=== PATIENT | female | born 1965 | race Caucasian/White ===

== ENCOUNTER 2020-02-24 11:23 | Outpatient (CLI) | payer OTHER, SELFPAY ==
--- NOTE | ~2020-02-24 | MM_ITS ---
EXAMINATION: MM screening jose BI w michelle HISTORY: Screening TECHNIQUE: Craniocaudal and mediolateral oblique 3-D tomosynthesis images were obtained and synthetic 2-D images were generated. CAD analysis was submitted and interpreted. COMPARISON: Comparison to multiple prior studies sequentially, with oldest reviewed study dated 10/07. BREAST PARENCHYMAL COMPOSITION: The breasts are heterogeneously dense, which may obscure small masses . FINDINGS: There is no evidence of suspicious mass, calcification, or architectural distortion to sugg est malignancy in either breast. There has been no suspicious interval change. IMPRESSION: 1. No mammographic evidence of malignancy. 2. Recommend routine screening mammography in one year. BI-RADS Category 1: Negative Reviewed, dictated and finalized at location A. L CLEANER
== END 2020-02-24 11:24 | disposition home or self-care (01) ==
LOC: ANHIMG 11:25
PROVIDERS: PCP Family Medicine; Visit Provider Obstetrics & Gynecology Gynecology
DX: Z12.31 Encounter for screening mammogram for malignant neoplasm of breast (principal)
CPT/HCPCS: 77063; 77067

== ENCOUNTER 2020-05-03 11:07 | Emergency (ER) | payer OTHER, SELFPAY ==
[2020-05-03] VITALS (7 sets, daily range): BP systolic 102–129; BP diastolic 56–79; PULSE 63–102; RESP 15–19; TEMP 36.3–36.8; O2SAT 99–100
--- NOTE | ~2020-05-03 | CT_ITS ---
. EXAMINATION: CT chest abdomen pelvis w con DATE: 05/03/2020 13:04 INDICATION: Abdominal bloating and bulging. TECHNIQUE: Computed tomography (CT) of the chest, abdomen, and pelvis was performed with 100 mL Omnip aque 350 intravenous contrast. Automated exposure control and iterative reconstruction technique were employed. The dose-length product was 299.94 mGy-cm. COMPARISON: None FINDINGS: CHEST CT: The lungs demonstrate minimal atelectasis. There is a 3 mm nodule in lingula, likely benign. No pleur al effusion. The heart size is normal. No pericardial effusion. There is mild thoracic spondylosis. ABDOMEN/PELVIS CT: The liver, gallbladder, spleen, pancreas, adrenal glands, and kidneys are normal. There are no dilate d loops of bowel. The appendix is normal. There is a 2.0 cm fibroid in the uterus. There are no patho logically enlarged lymph nodes. There is no free intraperitoneal fluid. There is mild lumbar spondylo sis. IMPRESSION: 1. Uterine fibroid. Reviewed, dictated and finalized at location A. OR USER EXPERIENCE ARCHITECT IMPRESSION: 1. Uterine fibroid.
--- NOTE | 2020-05-03 11:18 | ECG_ITS ---
Measurements Intervals [place] Rate: 99 P: 75 KS: 135 QRS: 63 QRSD: 86 T: 57 QT: 340 QTc: 437 Interpretive Statements SINUS RHYTHM ST ABNORMALITY IN ANTEROLAT/INF LEADS- CONSIDER ISCHEMIA BASELINE WANDER- I, II ABNORMAL ECG Electronically Signed On 05-03-2020 12:03:19 ORDNANCE OFFICER by Robert Iqbal D.O.
[2020-05-03 11:29] LABS: Basophils Absolute Auto 0.1 K/mm3 (0.0-0.1); Basophils Percent Auto 0.6 % (0.2-1.2); Eosinophils Percent Auto 0.1 % (0-4.4); Hematocrit 44.9 % (37.0-47.0); Hemoglobin 14.4 g/dL (12.0-15.0); Immature Granulocyte Absolute 0.02 K/mm3 (0.00-0.031); Immature Granulocyte Percent A 0.2 % (0-0.5); Lymphocytes Absolute Auto 1.47 K/mm3 (0.9-3.2); Lymphocytes Percent Auto 16.2 % (18.3-44.2); Mean Corpuscular HGB Conc 32.1 g/dl (32-36); Mean Corpuscular Hemoglobin 26.9 pg (26-34); Mean Corpuscular Volume 83.8 fl (80-100); Mean Platelet Volume 10.5 fl (7.4-10.4); Monocytes Absolute Auto 0.7 K/mm3 (0.1-0.6); Monocytes Percent Auto 7.2 % (2.6-8.5); Neutrophils Absolute Auto 6.9 K/mm3 (1.3-6.7); Neutrophils Percent Auto 75.7 % (45.5-73.1); Platelet Count Result 272 k/mm3 (150-375); Red Blood Count 5.36 M/mm3 (4.2-5.4); Red Cell Distribution Width 16.5 % (11.5-14.5); White Blood Count 9.1 K/mm3 (4.5-10.0)
[2020-05-03 11:46] LABS: Alanine Aminotransferase 17 U/L (4-35); Albumin Level 4.3 g/dL (3.5-5.1); Alkaline Phosphatase 54 U/L (38-126); Anion Gap 6 mmol/L (8-16); Aspartate Amino Transferase 33 U/L (14-36); Bilirubin,Total 0.7 mg/dL (0.2-1.3); Blood Urea Nitrogen 10 mg/dL (7-17); Calcium 9.1 mg/dL (8.4-10.2); Carbon Dioxide 34 mmol/L (22-30); Chloride 99 mmol/L (98-107); Estimated CRCL calculation 64 ml/min; Estimated Glomerular Filt Rate > 60; Glucose 97 mg/dL (65-105); Lipase 88 U/L (23-300); Potassium 3.6 mmol/L (3.4-5.0); Sodium 139 mmol/L (137-145)
[2020-05-03 12:24] LABS: Add Urine Microscopic? YES; Appearance Urine Clear (Clear); Bilirubin Urine Negative (Negative); Blood Urine Negative (Negative); Color Urine Colorless (Yellow); Glucose Urine UA Negative (Negative); Ketones Urine Trace mg/dL (Negative); Leukocyte Esterase Ur Negative LEU/UL (Negative); Nitrate Urine Negative (Negative); Protein Urine Negative (Negative); RBC Urine 0-2 /hpf (0-2); Specific Grav Ur 1.006 (1.001-1.035); Squamous Epithelial Cell Urine Few /hpf (Few); Urobilinogen Urine Negative mg/dL (<2.0); WBC Urine 0-3 /hpf
--- NOTE | 2020-05-03 12:26 | ED.ABDPAIN ---
HPI - Abdominal Pain General Chief Complaint: Abdominal Pain Stated Complaint: abd bloating Time Seen by Provider: 05/03/20 12:10 Source: patient Mode of arrival: ambulatory Limitations: no limitations History of Present Illness HPI narrative: Patient is a 54-year-old female complaining of upper abdominal pain accompanied by bloating, nausea and diarrhea, I have acid reflux that started yesterday. Denies any chest pain, shortness of breath, vomiting, urinary symptoms, fever or chills. Related Data Home Medications Medication Instructions Recorded Confirmed Iron 325 mg PO DAILY 03/12/19 ergocalciferol (vitamin D2) 50,000 unit PO WEEKLY 03/12/19 03/12/19 Allergies Allergy/AdvReac Type Severity Reaction Status Date / Time Sulfa (Sulfonamide Allergy Severe RASH Verified 05/03/20 12:36 Antibiotics) meperidine AdvReac Severe LOW BP Verified 05/03/20 12:36 RAGWEED Allergy Mild ITCHY, Uncoded 05/03/20 12:36 SNEEZY, CONGESTED Review of Systems Review of Systems: All systems reviewed & are unremarkable except as noted in HPI and below Constitutional: Constitutional: Denies body ache(s), Denies chills, Denies excessive sweating, Denies fatigue, Denies fever(s), Denies headache(s), Denies lethargy, Denies malaise, Denies weakness and Denies weight loss Eyes: Eyes: Denies blurry vision, Denies change in vision and Denies loss of vision ENT: Denies dizziness, Denies ear discharge, Denies headache(s), Denies lip swelling, Denies epistaxis, Denies nasal congestion, Denies neck pain, Denies throat swelling and Denies tongue swelling Cardiovascular: Cardiovascular: Denies chest pain, Denies chest pain at rest, Denies chest pain with activity, Denies diaphoresis, Denies rapid heart rate, Denies edema, Denies irregular heart rhythm, Denies lightheadedness, Denies palpitations, Denies dyspnea and Denies dyspnea on exertion Respiratory: Respiratory: Denies chest congestion, Denies cough, Denies hemoptysis, Denies dyspnea and Denies dyspnea on exertion Gastrointestinal: Gastrointestinal: Denies abdominal pain, Denies melena, Denies hematochezia, Denies vomiting and Denies hematemesis Musculoskeletal: Musculoskeletal: Denies abnormal gait, Denies deformity, Denies joint swelling, Denies limited range of motion, Denies neck pain and Denies numbness Neurologic: Denies Abnormal speech present, Denies abnormal gait, Denies confusion, Denies dizziness, Denies headache(s), Denies focal weakness, Denies loss of vision, Denies numbness, Denies Other visual disturbances, Denies Sensory deficit (Neuro) and Denies weakness Psychiatric: Psychiatric: Denies confusion, Denies depression, Denies auditory hallucinations, Denies homicidal ideation and Denies suicidal ideation Endocrine: Endocrine: Denies cold intolerance, Denies excessive sweating, Denies fatigue, Denies heat intolerance and Denies palpitations Hematologic/Lymphatic: Hematologic/Lymphatic: Denies easy bleeding and Denies easy bruising Allergic/Immunologic: Allergic/Immunologic: Denies lip swelling, Denies throat swelling and Denies tongue swelling Exam Const: General: cooperative, healthy appearing, comfortable, no acute distress, well developed, alert and awake; No confusion Orientation/consciousness: oriented to person, oriented to place, oriented to time, patient oriented x3 and No confusion Limitations: no limitations HENMT: Head: normal to inspection, normocephalic and atraumatic Ears: hearing grossly normal bilaterally, TM normal on the right and TM normal on the left General nose exam: Normal external nose present, Normal nares present and No nasal discharge present Face and sinus: normal facial exam Mouth: Yes Normal oral and palatal mucosa present, Yes lip normal, Yes tongue normal and Yes oropharynx normal Throat: posterior oropharynx normal, tonsils normal and uvula midline Eyes: General: appearance normal, both eyes and all related structures Pupils: Equal, r
[2020-05-03] MEDS: SODIUM CHLORIDE 0.9% IV 1,000 ML 999 ML IV CONT (12:54)
[2020-05-03] MEDS: ONDANSETRON INJ 4 MG/2 ML VIAL IV PUSH (12:55)
[2020-05-03 13:22] LABS: Troponin I < 0.012 ng/mL (0.000-0.034)
[2020-05-03] MEDS: BELLADONNA ALK/PHENOB ELIX 10 ML, MAG HYDROX/ALUMINUM HYD/SIMETH 30 ML, LIDOCAINE HCL 2... PO (15:45)
[2020-05-03] MEDS: FAMOTIDINE 20 MG TABLET 40 MG PO (15:45)
[2020-05-03 15:47] LABS: Troponin I < 0.012 ng/mL (0.000-0.034)
== END 2020-05-03 17:14 | disposition home or self-care (01) ==
LOC: ANHED 12:17
PROVIDERS: Emergency Medicine; Emergency Provider Emergency Medicine; PCP Family Medicine
DX: R10.13 Epigastric pain (principal); R07.89 Other chest pain; K21.9 Gastro-esophageal reflux disease without esophagitis; R94.31 Abnormal electrocardiogram [ECG] [EKG]
CPT/HCPCS: 36415; 71260; 74177; 80053; 81001; 81025; 83690; 84484; 85025; 93005; 96361; 96374; 99284; A9270; J2405; J7030; Q9967

== ENCOUNTER 2020-08-11 10:34 | Emergency (ER) | payer OTHER, SELFPAY ==
[2020-08-11 10:44] VITALS: BP 136/57; PULSE 82; RESP 16; TEMP 36.9; O2SAT 99
--- NOTE | 2020-08-11 11:02 | ED.URI ---
HPI - URI/Sore Throat General Chief Complaint: Upper Respiratory Infection Stated Complaint: Cough,Sore throat Time Seen by Provider: 08/11/20 11:00 Source: patient and RN notes reviewed Mode of arrival: ambulatory Limitations: no limitations History of Present Illness HPI Narrative: 54-year-old female presents with concern for cough, sinus congestion, drainage, sore throat. Reports 6-day history of symptoms. Denies any known sick contacts, fever, body aches, chills, sweats, headache, nausea, vomiting, diarrhea, loss of sense of taste or smell. Reports trying [id number] medications such as Sudafed, Mucinex with no relief. MD elicited complaint: cough Related Data Home Medications Medication Instructions Recorded Confirmed ergocalciferol (vitamin D2) 50,000 unit PO WEEKLY 03/12/19 08/11/20 Allergies Allergy/AdvReac Type Severity Reaction Status Date / Time Sulfa (Sulfonamide Allergy Severe RASH Verified 05/03/20 12:36 Antibiotics) meperidine AdvReac Severe LOW BP Verified 05/03/20 12:36 RAGWEED Allergy Mild ITCHY, Uncoded 05/03/20 12:36 SNEEZY, CONGESTED Review of Systems Review of Systems: Narrative: CONSTITUTIONAL: Denies malaise, chills, sweats, or fever. EYES: Denies visual changes, redness, or discharge. ENT: Reports rhinorrhea, congestion, sinus pain,sore throat. Denies otalgia CARDIOVASCULAR: Denies chest pain, palpitations, or edema. RESPIRATORY: Reports persistent cough. Denies dyspnea. GASTROINTESTINAL: Denies abdominal pain, nausea, vomiting, diarrhea SKIN: Denies rash or itching. MUSCULOSKELETAL: Denies myalgia. NEUROLOGIC: Denies headache. All systems reviewed & are unremarkable except as noted in HPI and below PMFSH Social History Social History Gender identity (if verbalized by the patient): Female Comments At time of signature, agree with nursing past medical, surgical, social and family history. There is no relevant family history pertinent to the presenting complaint Exam Narrative: Exam Narrative: GENERAL: Well-appearing, well-nourished, and in no acute distress. HEAD: Normocephalic EYES: PERRLA, conjunctivae clear ENT: Nares clear, turbinates erythematous, clear discharge. Mucous membranes moist. TM pearly darnell with dull light reflex bilaterally; no tragal tenderness. Oropharynx not erythematous without lesions. Tonsils not enlarged and without exudate, no drooling, no hoarseness, no trismus, uvula midline. NECK: Supple. No lymphadenopathy CHEST: Clear to auscultation, breath sounds equal. No wheezing, rhonchi, rales, or stridor. No respiratory distress, speaks in full sentences. Cough noted HEART: Regular rate and rhythm. No murmur heard. SKIN: Warm, dry, no rash. NEURO: Alert and oriented x3. PSYCH: Normal mood and affect Course Course Emergency Course: Patient is aware of diagnosis, understands and agrees to treatment plan. Anticipatory guidance given. Patient agrees to follow-up as directed and is aware of reasons to seek care at the emergency department. Portions of this record may have been created with voice recognition software Vital Signs Vital signs: Vital Signs Temperature 98.4 F 08/11/20 10:44 Pulse Rate 82 08/11/20 10:44 Respiratory Rate 16 08/11/20 10:44 Blood Pressure 136/57 L 08/11/20 10:44 Pulse Oximetry 99 08/11/20 10:44 Temperature 98.4 F 08/11/20 10:44 Pulse Rate 82 08/11/20 10:44 Respiratory Rate 16 08/11/20 10:44 Blood Pressure 136/57 L 08/11/20 10:44 Pulse Oximetry 99 08/11/20 10:44 Reviewed. MDM - URI/Sore Throat MDM Narrative Medical decision making narrative: Differential diagnosis considered: Islas virus, strep pharyngitis, allergic rhinitis, upper respiratory tract infection, sinusitis, rhinosinusitis, nasopharyngitis. viral pharyngitis, otitis media, otitis externa, pneumonia, bronchitis, viral cough syndrome, viral syndrome, and influenza. Exam findings show no acute concerns or changes; pat
== END 2020-08-11 11:17 | disposition home or self-care (01) ==
PROVIDERS: Emergency Provider Nurse Practitioner; PCP Family Medicine
DX: J32.9 Chronic sinusitis, unspecified (principal); J40 Bronchitis, not specified as acute or chronic
CPT/HCPCS: 87081; 87880; 99213; G0463

== ENCOUNTER 2022-03-09 09:15 | Emergency (ER) | payer MEDICARE, MEDICAID, SELFPAY ==
--- NOTE | ~2022-03-09 | XR_ITS ---
EXAMINATION: XR chest 2V DATE: 03/09/2022 10:11 INDICATION: Mid chest pain and discomfort TECHNIQUE: PA and lateral views of the chest were obtained. COMPARISON: Chest radiograph dated 03/17/2019 FINDINGS: The lungs remain clear with no focal airspace opacities, pulmonary edema, pleural effusion or pneumot horax. The cardiomediastinal silhouette is normal. Visualized bones and soft tissues are unremarkable . IMPRESSION: 1. No acute cardiopulmonary disease. Reviewed, dictated and finalized at location B. GER ETL
[2022-03-09 09:30] VITALS: BP 132/59; PULSE 70; RESP 18; TEMP 37; O2SAT 97
--- NOTE | 2022-03-09 09:32 | ECG_ITS ---
Measurements Intervals [place] Rate: 67 P: 26 OR: 99 QRS: 51 QRSD: 109 T: 60 QT: 374 QTc: 396 Interpretive Statements SINUS RHYTHM WITH SHORT OR INTERVAL BORDERLINE ECG COMPARED TO ECG 05/03/2020 11:22:25 ST ABNORMALITY IN ANTEROLAT/INF LEADS- CONSIDER ISCHEMIA RESOLVED Electronically Signed On 03-09-2022 9:56:43 MID LEVEL JAVA DEVELOPER by Robert Iqbal D.O.
--- NOTE | 2022-03-09 09:33 | ED.CHESTPAIN ---
HPI - Chest Pain General Chief Complaint: Chest Pain <IVELISSE Chavarria Last Filed: 03/09/22 10:42> Stated Complaint: chest tenderness <IVELISSE Chavarria Last Filed: 03/09/22 10:42> Time Seen by Provider: 03/09/22 09:24 <IVELISSE Chavarria Last Filed: 03/09/22 10:42> History of Present Illness HPI narrative: Patient is a 56-year-old female with a history of acid reflux here for evaluation of chest tenderness over the past 5 days. States that she was doing a Pilates class with front and side planks and since then she has felt sore in her anterior and lateral chest wall. She is attempted ibuprofen with good relief of her symptoms. She presents today due to longevity of her symptoms and location of her pain, wants to make sure that this is not a cardiac issue. She denies cardiac history, history of hypertension, hyperlipidemia, blood clots or smoking. No leg swelling, fevers or chills, cough or congestion, hemoptysis. <IVELISSE Chavarria Last Filed: 03/09/22 10:42> Related Data Home Medications: Home Medications Medication Instructions Recorded Confirmed ergocalciferol (vitamin D2) 1,250 50,000 unit PO WEEKLY 03/12/19 08/11/20 mcg (50,000 unit) capsule <IVELISSE Chavarria Last Filed: 03/09/22 10:42> Allergies/Adverse Reactions: Allergies Allergy/AdvReac Type Severity Reaction Status Date / Time Sulfa (Sulfonamide Allergy Severe RASH Verified 03/09/22 09:39 Antibiotics) meperidine AdvReac Severe LOW BP Verified 03/09/22 09:39 RAGWEED Allergy Mild ITCHY, Uncoded 03/09/22 09:39 SNEEZY, CONGESTED <IVELISSE Chavarria Last Filed: 03/09/22 10:42> Review of Systems Review of Systems: Gen.: Denies fevers or chills Eyes: Denies eye pain or visual change ENT: Denies congestion Respiratory: Denies shortness of breath or cough CV: Reports chest wall pain. GI: Denies abdominal pain nausea, emesis or diarrhea denies burning, urgency, frequency or hematuria Musculoskeletal: Denies back pain or muscle pain Neuro: Denies numbness, tingling, weakness or focal weakness Skin: Denies rash Except as documented, all other systems reviewed and negative <Mirella Yousif PA-C - Last Filed: 03/09/22 10:42> [facility] Social History Social History: Social History Gender identity (if verbalized by the patient): Female <Mirella Yousif PA-C - Last Filed: 03/09/22 10:42> Exam Narrative: APPEARANCE: Well appearing, no pain in distress, well-nourished. Head: Normocephalic and atraumatic. EYES: PERRLA/EOMI, conjunctivae clear NOSE: No nasal drainage EARS: External ear normal in appearance THROAT: Oropharynx is clear. Mucous membranes are moist. NECK: Supple. No adenopathy, no masses. RESPIRATORY: Airway patent, respirations nonlabored. Clear to auscultation bilaterally, no rales, rhonchi, wheezing. CARDIOVASCULAR: Tenderness to palpation over anterior chest wall and lateral chest wall along the bilateral lower ribs. Regular rate and rhythm without murmurs, rubs, or gallops. ABDOMINAL: Normoactive bowel sounds. Soft, nontender, nondistended. No rebound tenderness or guarding. MUSCULOSKELETAL: Extremities are warm and well-perfused. Moves all extremities well. No edema. NEURO: Normal speech. No focal neurologic deficits. SKIN: No rashes over thorax. Skin is warm and dry. PSYCHIATRIC: Normal affect/mood. <Mirella Yousif PA-C - Last Filed: 03/09/22 10:42> Course WELDER APPRENTICE ARC/PA Physician Supervision For this encounter, I have reviewed the PA documentation, treatment plan and medical decision making: And I have had ulwv-zu-[id number] time with the patient. On exam the patient is tender just to the left of the sternum and regions of ribs 6 through 8 pain increased with deep inspiration and Flye motion of the chest pain has been constant since doing planks a week ago heart is regular rate and rhythm wit
[2022-03-09 09:35] VITALS: O2SAT 97
[2022-03-09 09:52] VITALS: PULSE 71
[2022-03-09 10:10] LABS: Basophils Absolute Auto 0.1 K/mm3 (0.0-0.1); Basophils Percent Auto 0.9 % (0.2-1.2); Eosinophils Percent Auto 0.2 % (0-4.4); Hematocrit 44.4 % (37.0-47.0); Hemoglobin 14.2 g/dL (12.0-15.0); Immature Granulocyte Absolute 0.02 K/mm3 (0.00-0.031); Immature Granulocyte Percent A 0.3 % (0-0.5); Lymphocytes Absolute Auto 1.48 K/mm3 (0.9-3.2); Lymphocytes Percent Auto 25.2 % (18.3-44.2); Mean Corpuscular Hemoglobin 27.3 pg (26-34); Mean Corpuscular Volume 85.4 fl (80-100); Mean Platelet Volume 10.8 fl (7.4-10.4); Monocytes Absolute Auto 0.5 K/mm3 (0.1-0.6); Neutrophils Absolute Auto 3.8 K/mm3 (1.3-6.7); Neutrophils Percent Auto 65.4 % (45.5-73.1); Platelet Count Result 244 k/mm3 (150-375); Red Cell Distribution Width 13.2 % (11.5-14.5); White Blood Count 5.9 K/mm3 (4.5-10.0)
[2022-03-09 10:21] LABS: Alanine Aminotransferase 15 U/L (6-35); Albumin Level 4.6 g/dL (3.5-5.1); Alkaline Phosphatase 63 U/L (38-126); Anion Gap 12 mmol/L (8-16); Aspartate Amino Transferase 30 U/L (14-36); Bilirubin,Total 0.4 mg/dL (0.2-1.3); Blood Urea Nitrogen 14 mg/dL (7-17); Carbon Dioxide 27 mmol/L (22-30); Chloride 103 mmol/L (98-107); Estimated CRCL calculation 63 ml/min; Estimated Glomerular Filt Rate > 60; Glucose 102 mg/dL (65-110); Lipase 137 U/L (23-300); Potassium 4.3 mmol/L (3.4-5.0); Sodium 142 mmol/L (137-145)
[2022-03-09 10:31] LABS: Troponin I < 0.012 ng/mL (0.000-0.034)
[2022-03-09 11:02] VITALS: BP 119/43; PULSE 74; RESP 18; O2SAT 99
== END 2022-03-09 11:06 | disposition home or self-care (01) ==
PROVIDERS: Physician Assistant; Emergency Provider Emergency Medicine; PCP Family Medicine
DX: R07.89 Other chest pain (principal); R94.31 Abnormal electrocardiogram [ECG] [EKG]
CPT/HCPCS: 36415; 71046; 80053; 83690; 84484; 85025; 93005; 99284; J2785

== ENCOUNTER 2022-06-13 08:25 | Outpatient (CLI) | payer MEDICARE, MEDICAID, SELFPAY ==
--- NOTE | ~2022-06-13 | MM_ITS ---
EXAMINATION: MM screening jose BI w michelle HISTORY: Screening mammogram TECHNIQUE: Craniocaudal and mediolateral oblique 3-D tomosynthesis images were obtained and synthetic 2-D images were generated. CAD analysis was submitted and interpreted. COMPARISON: 02/24/2020, 02/09/2019, 02/01/2018 bilateral screening mammogram examinations BREAST PARENCHYMAL COMPOSITION: There are scattered areas of fibroglandular density. FINDINGS: There is no evidence of suspicious mass, calcification, or architectural distortion to sugg est malignancy in either breast. There has been no suspicious interval change. IMPRESSION: 1. No mammographic evidence of malignancy. 2. Recommend routine screening mammography in one year. BI-RADS Category 1: Negative Reviewed, dictated and finalized at location A. PROCESSING CONTROL CLERK
== END 2022-06-13 08:26 | disposition home or self-care (01) ==
PROVIDERS: PCP Family Medicine; Visit Provider Obstetrics & Gynecology Gynecology
DX: Z12.31 Encounter for screening mammogram for malignant neoplasm of breast (principal)
CPT/HCPCS: 77063; 77067

== ENCOUNTER 2022-11-13 13:48 | Emergency (ER) | payer MEDICARE, MEDICAID, SELFPAY ==
[2022-11-13 14:00] VITALS: BP 118/42; PULSE 70; RESP 14; TEMP 36.7; O2SAT 100
--- NOTE | 2022-11-13 14:23 | ED.EXTPRO ---
HPI - Extremity Problem General Chief complaint: Extremity Injury, Lower Stated complaint: Left Knee Pain Time Seen by Provider: 11/13/22 14:09 Source: patient and RN notes reviewed Mode of arrival: ambulatory Limitations: no limitations History of Present Illness HPI Narrative: Patient presents today complaining of left knee pain x1 week with tingling in the knee that started today. Pain increases with movement. Patient states she has been exercising more recently. She has been taking ibuprofen with little relief. Currently rates her pain 1/10 at rest. Denies loss of bowel or bladder control. Denies numbness or tingling in the genitalia. Related Data Home Medications Medication Instructions Recorded Confirmed ergocalciferol (vitamin D2) 1,250 50,000 unit PO WEEKLY 03/12/19 11/13/22 mcg (50,000 unit) capsule Allergies Allergy/AdvReac Type Severity Reaction Status Date / Time Sulfa (Sulfonamide Allergy Severe RASH Verified 11/13/22 14:03 Antibiotics) meperidine AdvReac Severe LOW BP Verified 11/13/22 14:03 RAGWEED Allergy Mild ITCHY, Uncoded 11/13/22 14:03 SNEEZY, CONGESTED Review of Systems Review of Systems: CONSTITUTIONAL: Denies body aches, fever, chills, or sweats. EYES: Denies visual changes, redness, or discharge. ENT: Denies rhinorrhea, congestion, sore throat, or otalgia. CARDIOVASCULAR: Denies chest pain, palpitations, or edema. RESPIRATORY: Denies cough or dyspnea. GASTROINTESTINAL: Denies abdominal pain, nausea, vomiting, or diarrhea. GENITOURINARY: Denies dysuria or hematuria. SKIN: Denies rash, itching, or wounds. MUSCULOSKELETAL: Denies back pain, or myalgia.+ left knee pain NEUROLOGIC: Denies headache, numbness, tingling, or weakness. PSYCH: Denies depression or anxiety. PMFSH Social History Social History Gender identity (if verbalized by the patient): Female Comments At time of signature, I have reviewed and agree with nursing past medical, surgical, social and family history unless otherwise noted. Please see nursing chart for further information. There is no relevant family history pertinent to the presenting complaint Exam Narrative: GENERAL: Well-appearing, well-nourished, and in no acute distress. HEAD: Normocephalic, atraumatic. EYES: EOMI. No redness or drainage. Conjunctivae normal. ENT: Mucous membranes pink and moist. NECK: Normal AROM. CHEST: No respiratory distress. MUSCULOSKELETAL: Mild left lower lumbar paraspinal muscle tenderness, point tenderness in the left SI joint. EXTREMITIES: Tenderness to the posterior medial left knee and left medial ankle. Distal sensation intact. Capillary refill normal. Pedal pulses normal. Dorsiflexion and plantar flexion equal and strong against resistance. Left knee: Nontender to the lateral joint line. No tenderness to the patella or patellar tendon. No abnormal movement of the patella. No edema, erythema, ecchymosis of the knee. No pain with flexion, extension, internal or external rotation. Negative Homans. No tenderness of the calf. No erythema or edema of the calf. No color change. SKIN: Warm, dry, no rash. Capillary refill normal. Normal skin turgor. NEURO: No focal deficits. Alert and oriented x3. Gait steady. PSYCH: Normal affect. No signs of depression or anxiety. Course Course Level of Care: Express Care Visit Vital Signs Vital signs: Vital Signs Temperature 98.1 F 11/13/22 14:00 Pulse Rate 70 11/13/22 14:00 Respiratory Rate 14 11/13/22 14:00 Blood Pressure 118/42 L 11/13/22 14:00 Pulse Oximetry 100 11/13/22 14:00 Oxygen Delivery Room Air 11/13/22 14:00 Temperature 98.1 F 11/13/22 14:00 Pulse Rate 70 11/13/22 14:00 Respiratory Rate 14 11/13/22 14:00 Blood Pressure 118/42 L 11/13/22 14:00 Pulse Oximetry 100 11/13/22 14:00 Oxygen Delivery Room Air 11/13/22 14:00 Arin
== END 2022-11-13 14:40 | disposition home or self-care (01) ==
PROVIDERS: Emergency Provider Nurse Practitioner; PCP Family Medicine
DX: M54.32 Sciatica, left side (principal); K21.9 Gastro-esophageal reflux disease without esophagitis; H26.9 Unspecified cataract
CPT/HCPCS: 99213; G0463

== ENCOUNTER 2022-12-05 11:05 | Outpatient (CLI) | payer MEDICARE, MEDICAID, SELFPAY ==
--- NOTE | ~2022-12-05 | XR_ITS ---
EXAMINATION: XR thoracic spine 3V DATE: 12/05/2022 11:27 INDICATION: Low back pain. TECHNIQUE: 3 views of thoracic spine were obtained. COMPARISON: Chest 2 views 03/09/2022 FINDINGS: Bone alignment is normal. Vertebral body heights are normal. There is mildly decreased disc height at multiple levels in mid thoracic spine with endplate osteophytes. IMPRESSION: 1. Mild thoracic spondylosis. Reviewed, dictated and finalized at location E.
--- NOTE | ~2022-12-05 | XR_ITS ---
EXAMINATION: XR lumbar spine 2-3V DATE: 12/05/2022 11:27 INDICATION: Low back pain. TECHNIQUE: 3 views of lumbar spine were obtained. COMPARISON: None. FINDINGS: Bone alignment is normal. Vertebral body heights and intervertebral disc heights are normal . There are endplate osteophytes at multiple levels. There is multilevel mild facet joint osteoarthri tis. IMPRESSION: 1. Mild lumbar spondylosis. Reviewed, dictated and finalized at location E. IMPRESSION: 1. Mild lumbar spondylosis.
== END 2022-12-05 11:06 | disposition home or self-care (01) ==
PROVIDERS: PCP Family Medicine
DX: M47.816 Spondylosis without myelopathy or radiculopathy, lumbar region (principal); M47.814 Spondylosis without myelopathy or radiculopathy, thoracic region
CPT/HCPCS: 72072; 72100

== ENCOUNTER 2023-02-17 15:15 | Outpatient (RCR) | payer MEDICARE, MEDICAID, SELFPAY ==
--- NOTE | 2023-01-22 15:28 | OPREHPOC ---
Outpatient Therapy Plan of Care This is a Multidisciplinary Plan of Care that may contain components documented by all disciplines (PT, OT, and ST.) PT Problem 1 PT Problem #1 Knowledge Deficit PT Goal 1 Goal 1* indep with HEP 2* demonstrate good position of trunk with exercises PT Problem 2 PT Problem #2 Pain PT Goal 1 Goal 1* pt report pain rating at worst of 4/10 2* pt report sitting for one hour without pain increase 3* pt report walking for 50 minutes without pain increase PT Problem 3 PT Problem #3 Impaired Strength PT Goal 1 Goal improve thoracic and lumbar strength for stability to spine and improve positionin* pt perform 20 reps of mat trunk strengthening exercises with good stability 2* pt perform 15 reps of sitting ball exercises with good stability
--- NOTE | 2023-01-22 15:28 | PTOPEVAL1 ---
Assessment and note entered by Pattie Friedman, PT Evaluation Information Assessment Status Evaluation Diagnosis low back pain Onset August 2022 Subjective Information gradual increase in pain 3-4 months ago; have been walking her dog that pulls on his leash; no trauma or injury to back; have stopped doing weight resistance exercises for arms few months ago due to pain in upper back; do yoga stretching 10-15/day and it helps; also have plantar fascitis bilateral that limits her walking-- hurts the next day if go too far; xrays of back- pt was told it was stenosis. Oswestry self assessment 8% limitation. 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 She reports gradual increase in pain, with walking and sitting decreased due to pain. Also recently more pain with walking her dog that pulls on the leash. With the evaluation: the motion that elicited low back pain was standing trunk extension and thoracic soreness with all 4 arch/sag; she has good flexibility of hips and LE's, with decreased thoracic mobility; strength of hips and legs is good; poor standing posture with rounding of trunk and shoulders. Skilled PT services are indicated for modalities to decrease pain and spasms over thoracic and lumbar spine, therapeutic exercises to increase trunk strength, thoracic mobility and stability to spine, with education for home exercises and posture correction. Plan of Care
--- NOTE | 2023-02-17 16:02 | OPREHPOC ---
Outpatient Therapy Plan of Care This is a Multidisciplinary Plan of Care that may contain components documented by all disciplines (PT, OT, and ST.) PT Problem 1 PT Problem #1 Knowledge Deficit PT Goal 1 Goal 1* indep with HEP 2* demonstrate good position of trunk with exercises Progress Met PT Problem 2 PT Problem #2 Pain PT Goal 1 Goal 1* pt report pain rating at worst of 4/10 2* pt report sitting for one hour without pain increase 3* pt report walking for 50 minutes without pain increase Progress Met PT Problem 3 PT Problem #3 Impaired Strength PT Goal 1 Goal improve thoracic and lumbar strength for stability to spine and improve positionin* pt perform 20 reps of mat trunk strengthening exercises with good stability 2* pt perform 15 reps of sitting ball exercises with good stability Progress Partially Met
--- NOTE | 2023-02-17 16:02 | PTOPPROGNS ---
Assessment and note entered by Sabrina Moses DPT Evaluation Information Assessment Status Progress Diagnosis low back pain Onset August 2022 Subjective Information Highest pain 4/10 recently and lowest pain 0/10. Pt reports her range of motion has improved and she has a lot less pain turning her head. Pt reports she feels less pain with doing her normal cooking and cleaning. 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 Assessment PT Clinical Summary The patient has made excellent progress and demonstrates improved pain to 4/10 highest. She demonstrates decreased pain and improved mobility with lumbar range of motion. Due to her progress and independence with home tasks and HEP, plan to hold therapy at this time to allow for patient to continue progressing independently. Will resume therapy as needed. Plan of Care Interventions Other Interventions PT Services Indicated No Treatment Frequency and hold therapy for independent HEP, will resume as Duration needed These treatments will address the objective and functional deficits as defined above. The patient will be advanced safely and appropriately in order for the patient to progress towards his/her prior level of function. Additional exercises will be introduced and as well as a comprehensive home exercise program upon discharge, if needed, ?to ensure carryover of functional gains achieved in the clinic. This treatment plan has been reviewed and agreement upon by the patient.
--- NOTE | 2023-03-19 09:23 | PTOPDC ---
Assessment and note entered by Pattie Friedman, PT Discharge Information Assessment PT Clinical Summary PHYSICAL THERAPY DISCHARGE Carmen has not returned for any further treatment since the progress report of 02-17-23. Therefore, she will be discharged from PT services. Plan of Care PT Services Indicated No
== END 2023-03-19 10:10 | disposition home or self-care (01) ==
LOC: ANHPT 15:15
PROVIDERS: PCP Family Medicine; Visit Provider Family Medicine
DX: M54.50 Low back pain, unspecified (principal)
CPT/HCPCS: 97110; 97140; 97161; 97530

== ENCOUNTER 2023-06-04 08:00 | Outpatient (RCR) | payer MEDICARE, MEDICAID, SELFPAY ==
[2023-04-28 13:30] VITALS: BP_SYST 160
--- NOTE | 2023-04-28 14:23 | OPREHPOC ---
Outpatient Therapy Plan of Care This is a Multidisciplinary Plan of Care that may contain components documented by all disciplines (PT, OT, and ST.) PT Problem 1 PT Problem #1 Knowledge Deficit PT Goal 1 Goal 1* indep with HEP 2* pt maintain correct shoulder position with exercises PT Problem 2 PT Problem #2 Pain PT Goal 1 Goal 1* pt report pain rating at worst of 2/10 with increased activity level 2* self assessment Quick DASH score of 10% limitation in activity level PT Problem 3 PT Problem #3 Impaired Flexibility PT Goal 1 Goal in standing, active R shoulder improve motion, to dress and do self care: 1* IR, reach behind back, fingers to mid scapula 2* flexion to 150' to reach in cabinets of kitchen PT Problem 4 PT Problem #4 Impaired Strength PT Goal 1 Goal increase strength of R shoulder, to improve use of R arm with home and self care tasks: in standing 8 reps with hand wt: 1* flexion 3# 2* abduction 2# 3* ER with elbow at side 3#
--- NOTE | 2023-04-28 14:23 | PTOPEVAL1 ---
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 She reports gradual increase in pain with more activity and fitness exercises. Since resting and decreasing her activity level, pain is less. She is R hand dominant. Quick DASH self rating of 14 % limitation of activity. With the evaluation, she has decreased strength/ active ROM of R shoulder, all motions; IR and abduction are most painful; tenderness over biceps proximal insert and upper deltoid with spasms. Skilled PT services are indicated for modalities to decrease pain, therapeutic exercises to increase shoulder ROM and strength, improve posture and position of GH joint, to decrease impingement of shoulder. Education for HEP and posture with exercises and activity. Plan of Care Interventions Electrical Stimulation,Hot Pack/Cold Pack,Manual Therapy,Neuro Re-education,Patient Education,Therapeu
--- NOTE | 2023-05-18 08:16 | PCPTNOTE ---
05-17-23: appt canceled due to bad weather.
--- NOTE | 2023-05-19 14:27 | PCPTNOTE ---
pt called and canceled today's reeval due to being ill.
--- NOTE | 2023-06-04 08:43 | PTOPDC ---
Assessment and note entered by Pattie Friedman, PT Discharge Information Assessment Status Discharge Diagnosis R shoulder tendonitis Onset begin Mar 2023 Subjective Information shoulder is better, saw recently, am doing everything at home; Reported Pain Level Pain Score Self Report Additional Pain Score Comments pain range of 0-3/10 in the past week; pain is in thoracic area,- tight, shoulder not hurting over joint Assessment PT Clinical Summary Carmen has received 6 PT sessions. She called/ canceled 1 appointment due to illness. Compared to the initial evaluation: pain rating is the same at 0-3/10, thoracic area painful, but no shoulder pain; R shoulder active ROM is WNL, without pain, and increased strength and use of UE with home tasks; Quick DASH rating of 14% to limitation of activity; education completed for HEP and posture correction. The goals were achieved, except pain rating of 2/10 Discharge from PT services. She is to continue with her HEP. Plan of Care PT Services Indicated No
== END 2023-07-12 08:36 | disposition home or self-care (01) ==
LOC: ANHPT 08:00
PROVIDERS: PCP Family Medicine; Visit Provider Physician Assistant Surgical
DX: M75.91 Shoulder lesion, unspecified, right shoulder (principal); M25.811 Other specified joint disorders, right shoulder
CPT/HCPCS: 97110; 97112; 97161; 97530

== ENCOUNTER 2023-07-27 06:19 | Emergency (ER) | payer MEDICARE, MEDICAID, SELFPAY ==
--- NOTE | ~2023-07-27 | XR_ITS ---
EXAMINATION: XR chest 1V portable 07/27/2023 08:08 INDICATION: Dyspnea PROCEDURE: AP chest COMPARISON: No prior studies for comparison. FINDINGS: The lungs are clear. The lungs are hyperinflated which is consistent with, but not diagnost ic of chronic obstructive pulmonary disease. The cardiomediastinal silhouette is within normal limit s. There are no pleural effusions. There is no pneumothorax suspected. IMPRESSION: 1: NO ACUTE CARDIOPULMONARY DISEASE. Reviewed, dictated and finalized at location B.
[2023-07-27 06:20] VITALS: BP 141/69; PULSE 82; RESP 16; TEMP 36.8; O2SAT 99
[2023-07-27 06:39] VITALS: PULSE 79
--- NOTE | 2023-07-27 06:40 | ECG_ITS ---
Measurements Intervals [place] Rate: 82 P: 69 KS: 141 QRS: 29 QRSD: 69 T: 49 QT: 343 QTc: 402 Interpretive Statements SINUS RHYTHM LOW QRS VOLTAGE IN PRECORDIAL LEADS [QRS DEFLECTION < 1.0 mV IN CHEST LEADS] COMPARED TO ECG 03/09/2022 09:44:58 NO SIGNIFICANT CHANGES Electronically Signed On 07-27-2023 8:52:41 CDT by Chica Swift M.D.
[2023-07-27 07:00] VITALS: BP 131/72; PULSE 87; RESP 18; O2SAT 98
--- NOTE | 2023-07-27 07:12 | PC.NURSE ---
BSSR given to GRANT Redd at this time.
[2023-07-27 07:30] VITALS: BP 105/68; PULSE 63; RESP 15; O2SAT 95
--- NOTE | 2023-07-27 07:45 | ED.GENADULT ---
HPI - General Adult General Chief complaint: Eye Problems Stated complaint: spotty vision Time Seen by Provider: 07/27/23 07:07 History of Present Illness HPI narrative: 7 years old white female came to the emergency room from home by private car because of not feeling well. Patient wake up at 5:30 a.m. this morning noticed seeing cluster across her eyes bilaterally lasted for less than 30 seconds subsequently started feeling flushed and clammy, with up and down blood pressure, heart is racing, jittery inside and shaky outside, symptom almost resolved on arrival to the ED, currently her main complaint is nausea. Patient is healthy otherwise, started on Zoloft 5 days ago because of anxiety/depression. Patient reports a lot of stress in her life lately. She denies any fever, chills, nausea, vomiting, chest pain or shortness of breath Related Data Home Medications Medication Instructions Recorded Confirmed ergocalciferol (vitamin D2) 1,250 50,000 unit PO WEEKLY 03/12/19 07/21/23 mcg (50,000 unit) capsule hydrocodone 5 mg-acetaminophen 325 1 tablet PO Q4H PRN 12/02/22 07/21/23 mg tablet Allergies Allergy/AdvReac Type Severity Reaction Status Date / Time Sulfa (Sulfonamide Allergy Severe RASH Verified 07/27/23 06:39 Antibiotics) meperidine AdvReac Severe LOW BP Verified 07/27/23 06:39 RAGWEED Allergy Mild ITCHY, Uncoded 07/21/23 16:17 SNEEZY, CONGESTED Review of Systems Review of Systems: All systems reviewed & are unremarkable except as noted in HPI and below PMFSH Past Medical History Medical History Migraines Surgical History Surgical History History of tonsillectomy History of tubal ligation Family History Family History Father Cerebrovascular accident Sibling Cerebrovascular accident Social History Social History Smoking status: Never smoker Alcohol intake: never Substance use: never Substance use type: does not use Lack of Transportation: No Lack of Food: Never True Current Housing: I Have Housing Concerned About Future Housing: No Difficulty Paying Gas/Electric Bills: No Difficulty Paying for Meds: No Currently Unemployed: No Education: High School Diploma/GED Living arrangements: with family Occupation/Education: occupation 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 Gender identity (if verbalized by the patient): Female Sexual Orientation (if Verbalized by the Patient): Straight or Heterosexual Course Course Emergency Course: General appearance: Well-developed, well-nourished Skin: Normal color Head: Normocephalic, nontraumatic Eyes: Clear conjunctiva ENT: Oropharynx normal, ears normal, nose normal Neck: Supple, nontender Chest and respiratory: Airway patent, no respiratory distress, no accessory muscle use Heart: Regular rate/rhythm Abdomen: Soft, nontender, no organomegaly, quiet bowel sounds Vascular: Normal peripheral pulses, normal capillary refill. Musculoskeletal: Normal range of motion, nontender back Neurologic: Alert and oriented ?3, [employer] is normal as tested, no gross motor deficit Vital Signs Vital signs: Vital Signs Temperature 36.8 C 07/27/23 06:20 Pulse Rate 82 07/27/23 06:20 Respiratory Rate 16 07/27/23 06:20 Blood Pressure 141/69 H 07/27/23 06:20 Pulse Oximetry 99 07/27/23 06:20 Oxygen Delivery Room Air 07/27/23 06:20 Temperature 36.8 C 07/27/23 06:20 Pulse Rate 63 07/27/23 07:
[2023-07-27 07:53] LABS: Basophils Absolute Auto 0.1 K/mm3 (0.0-0.1); Basophils Percent Auto 1.1 % (0.2-1.2); Eosinophils Percent Auto 0.5 % (0-4.4); Hematocrit 41.2 % (37.0-47.0); Hemoglobin 13.4 g/dL (12.0-15.0); Immature Granulocyte Absolute 0.02 K/mm3 (0.00-0.031); Immature Granulocyte Percent A 0.3 % (0-0.5); Lymphocytes Absolute Auto 1.36 K/mm3 (0.9-3.2); Lymphocytes Percent Auto 21.1 % (18.3-44.2); Mean Corpuscular HGB Conc 32.5 g/dl (32-36); Mean Corpuscular Hemoglobin 28.3 pg (26-34); Mean Corpuscular Volume 87.1 fl (80-100); Mean Platelet Volume 10.6 fl (7.4-10.4); Monocytes Absolute Auto 0.4 K/mm3 (0.1-0.6); Monocytes Percent Auto 6.3 % (2.6-8.5); Neutrophils Absolute Auto 4.6 K/mm3 (1.3-6.7); Neutrophils Percent Auto 70.7 % (45.5-73.1); Platelet Count Result 235 k/mm3 (150-375); Red Blood Count 4.73 M/mm3 (4.2-5.4); Red Cell Distribution Width 12.7 % (11.5-14.5); White Blood Count 6.5 K/mm3 (4.5-10.0)
[2023-07-27 08:03] LABS: Alanine Aminotransferase 12 U/L (6-35); Albumin Level 3.9 g/dL (3.5-5.1); Alkaline Phosphatase 60 U/L (38-126); Anion Gap 3 mmol/L (4-12); Aspartate Amino Transferase 25 U/L (14-36); Bilirubin,Total 0.6 mg/dL (0.2-1.3); Blood Urea Nitrogen 18 mg/dL (7-17); Calcium 8.9 mg/dL (8.4-10.2); Carbon Dioxide 27 mmol/L (22-30); Chloride 108 mmol/L (98-107); Estimated CRCL calculation 55 ml/min; Estimated Glomerular Filt Rate > 60; Glucose 112 mg/dL (65-110); Potassium 3.9 mmol/L (3.4-5.0); Sodium 138 mmol/L (137-145)
[2023-07-27 08:13] LABS: Appearance Urine Clear (Clear); Bacteria Urine None Seen /hpf; Bilirubin Urine Negative (Negative); Blood Urine Negative (Negative); Color Urine Yellow (Yellow); Glucose Urine UA Negative (Negative); Ketones Urine Negative (Negative); Leukocyte Esterase Ur 1+ LEU/UL (Negative); Need Manual Microscopic Reviewed; Nitrate Urine Negative (Negative); Non Pathogenic Casts 0-2; Protein Urine Negative (Negative); Specific Grav Ur 1.017 (1.001-1.035); Squamous Epithelial Cell Urine None Seen /hpf (Few); Urobilinogen Urine 0.2 mg/dL (<2.0); WBC Urine 0-5 /hpf (0-3)
[2023-07-27 08:15] LABS: Add Urine Microscopic? YES
[2023-07-27 09:42] VITALS: BP 112/52; PULSE 73; RESP 16; TEMP 36.6; O2SAT 96
--- NOTE | 2023-07-27 09:47 | PC.NURSE ---
Agree with notes from Rita Rae administrative nursing supervisor.
== END 2023-07-27 09:47 | disposition home or self-care (01) ==
PROVIDERS: Emergency Provider Emergency Medicine; PCP Family Medicine
DX: F41.9 Anxiety disorder, unspecified (principal)
CPT/HCPCS: 36415; 71045; 80053; 81001; 84443; 85025; 93005; 99284; A9270

== ENCOUNTER 2023-10-25 19:07 | Emergency (ER) | payer MEDICARE, MEDICAID, SELFPAY ==
[2023-10-25 19:15] VITALS: BP 111/60; PULSE 72; RESP 18; TEMP 36.6; O2SAT 99
--- NOTE | 2023-10-25 19:23 | ED.URI ---
HPI - URI/Sore Throat General Chief Complaint: Upper Respiratory Infection Stated Complaint: Sinus Problems,Cough,Earache,Sore Throat Source: patient and RN notes reviewed Mode of arrival: ambulatory Limitations: no limitations History of Present Illness HPI Narrative: 58 y/o female presented for c/o nasal congestion, cough, and sore throat for 2 weeks. Reports right ear is clogged. Taking ibuprofen, sudafed, antihistamine and saline nasal spray without much improvement. also reports a deviated septum and chronic sinus infections. Takes Zyrtec daily MD elicited complaint: cough Related Data Home Medications Medication Instructions Recorded Confirmed ergocalciferol (vitamin D2) 1,250 50,000 unit PO WEEKLY 03/12/19 10/25/23 mcg (50,000 unit) capsule Allergies Allergy/AdvReac Type Severity Reaction Status Date / Time Sulfa (Sulfonamide Allergy Severe RASH Verified 07/27/23 06:39 Antibiotics) meperidine AdvReac Severe LOW BP Verified 07/27/23 06:39 RAGWEED Allergy Mild ITCHY, Uncoded 07/21/23 16:17 SNEEZY, CONGESTED Review of Systems Review of Systems: CONSTITUTIONAL: denies malaise, chills, sweats, fever EYES: Denies visual changes, redness, or discharge ENT: Reports rhinorrhea, congestion, sinus pain, otalgia, sore throat CARDIOVASCULAR: Denies chest pain, palpitations, edema RESPIRATORY: Denies dyspnea GASTROINTESTINAL: Denies abdominal pain, nausea, vomiting, diarrhea SKIN: Denies rash or itching MUSCULOSKELETAL: denies myalgia PMFSH Past Medical History Medical History Migraines Surgical History Surgical History History of tonsillectomy History of tubal ligation Family History Family History Father Cerebrovascular accident Sibling Cerebrovascular accident Social History Social History Smoking status: Never smoker Alcohol intake: never Substance use: never Substance use type: does not use Lack of Transportation: No Lack of Food: Never True Current Housing: I Have Housing Concerned About Future Housing: No Difficulty Paying Gas/Electric Bills: No Difficulty Paying for Meds: No Currently Unemployed: No Education: High School Diploma/GED Living arrangements: with family Occupation/Education: occupation 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 left TM pearly darnell with dull light reflex; right TM unable to visualize due to excess cerumen no tragal tenderness. Oropharynx not erythematous without lesions or exudate, no drooling, no hoarseness, no trismus, uvula midline. No tripod positioning, muffled voice, soft palate or pharyngeal wall bulging NECK: Supple. No lymphadenopathy CHEST: Clear to auscultation, breath sounds equal. HEART: Regular rate and rhythm. No murmur heard. NEURO: Alert and oriented x3. Course Course Emergency Course: Patient is aware of diagnosis, understands and agrees to treatment plan. Anticipatory guidance given. Patient agrees to follow-up as directed and is aware of reasons to seek care at the emergency department. Portions of this record may have been created with voice recognition software Level of Care: Express Care Visit Vital Signs Vital signs: Vital Signs Temperature 98 F 10/25/23 19:15 Pulse Rate 72 10/25/23 19:15 Respiratory Rate 18 10/25/23 19:15 Blood Pressure 111/60 10/25/23 19:15 Pulse Oximetry 99 10/25/23 19:15 Oxygen Delivery Room Air 10/25/23 19:15 Temperature 98 F 10/25/23 19
== END 2023-10-25 19:35 | disposition home or self-care (01) ==
PROVIDERS: Emergency Provider Nurse Practitioner Family; PCP Family Medicine
DX: J32.9 Chronic sinusitis, unspecified (principal); H61.21 Impacted cerumen, right ear
CPT/HCPCS: 99213; G0463

== ENCOUNTER 2024-02-16 09:53 | Outpatient (CLI) | payer MEDICARE, MEDICAID, SELFPAY ==
--- NOTE | ~2024-02-16 | MM_ITS ---
EXAMINATION: MM screening jose BI w michelle HISTORY: Screening TECHNIQUE: Craniocaudal and mediolateral oblique 3-D tomosynthesis images were obtained and synthetic 2-D images were generated. CAD analysis was submitted and interpreted. COMPARISON: Comparison to multiple prior studies sequentially, with oldest reviewed study dated 01/26. BREAST PARENCHYMAL COMPOSITION: Not dense: There are scattered areas of fibroglandular density. FINDINGS: There is no evidence of suspicious mass, calcification, or architectural distortion to sugg est malignancy in either breast. There has been no suspicious interval change. IMPRESSION: 1. No mammographic evidence of malignancy. 2. Recommend routine screening mammography in one year. BI-RADS Category 1: Negative Reviewed, dictated and finalized at location B.
== END 2024-02-16 09:54 | disposition home or self-care (01) ==
LOC: ANHIMG 09:56
PROVIDERS: PCP Family Medicine; Visit Provider Obstetrics & Gynecology
DX: Z12.31 Encounter for screening mammogram for malignant neoplasm of breast (principal)
CPT/HCPCS: 77063; 77067

== ENCOUNTER 2024-05-24 16:27 | Outpatient (CLI) | payer MEDICARE, MEDICAID, SELFPAY ==
--- NOTE | ~2024-05-24 | CT_ITS ---
EXAMINATION: CT sinus wo con DATE: 05/24/2024 16:53 INDICATION: Chronic sinusitis TECHNIQUE: Computed tomography (CT) of the paranasal sinuses was performed without intravenous contra st. The dose-length product (DLP) was 296.82 mGy-cm. Iterative reconstruction was used. COMPARISON: 05/02/2019 FINDINGS: There is normal development and pneumatization of the paranasal sinuses. Radha bullosa and intralamellar cells in both middle nasal turbinates, larger on the right. The frontal, sphenoid, eth moid, and maxillary sinuses are clear. Small rightward directed osseous spur and mild rightward bowin g of the inferior osseous nasal septum. The bilateral ostiomeatal complexes are patent. Left mastoid fluid without erosion. Visualized soft tissues are unremarkable. IMPRESSION: Unremarkable CT sinus findings. Chronic left mastoid effusion. Reviewed, dictated and finalized at location K. ITAL RECRUITER
--- OUTSIDE RECORDS SUMMARY | 2024-05-24 16:51 | XMS_ITS | Data Portability ---
Author Organization [place] [facility] [employer], Main Office Address [address] [place] [address] Care Team Providers Care Solaris Administrator Name Role Phone JANESSA SKYE Primary Care Provider FARRUKH MORROW Primary Care Provider Assessment Encounter Date Assessment Date Assessment LastModified by Organization Details LastModified Time 01/05/2024 01/05/2024 58-year-old patient presents today with right hip pain that has been going on for about 3 months. She denies any injury. She states that it feels like sciatica pain. It starts in her lower back and shoots down her leg to her foot. She states it is not constant, it depends on her movements. She also occasionally feels pain in the front over the groin and tenderness down the lateral side of her leg. She states that it gets better when she rests and takes 800 mg ibuprofen. imaging: X-rays reviewed show no acute bony abnormality or fracture. She does have mild degenerative changes within the joint space with narrowing posteriorly. Physical exam: Tenderness with palpitation over anterior and posterior hip. Tenderness along ITB band. No pain with log roll. No pain or restrictions in range of motion. No symptoms with straight leg raise. Sensation intact throughout. We will start with course of physical therapy. She can continue to take the 800 mg ibuprofen if it is working for her. We will see her back in 4-6 weeks after therapy if she is still experiencing pain. She is in agreement with this plan. [email or web address] Not available 01/05/2024 10:09:04 Plan of Treatment Reminders Order Date Submit Date Provider Last Modified By Organization Details Last Modified Time Details Appointments None recorded. Lab noninvasiv e colorectal cancer DNA + occult blood screening, QL, stool 2023 024 [facility] (Cologuard Orders Only), [address], [address], [place], [address], 21:41:08 hepatitis C virus Ab, serum 2023 024 [email or web address] [facility] (Lab), [address] [place], [address], 15:05:11 Referral physical therapist referral - PLease contact patient to schedule 2023 024 [email or web address] [facility], [address], [place], [address], 14:48:30 Procedures None recorded. Surgeries None recorded. Imaging XR, hip + pelvis, unilateral 2023 024 [facility], [address], [place], [address], 14:48:30 DEXA, axial skeleton - Please call patient to schedule. 2023 024 [facility], [address], [address], [place], [address], 5 12:05:55 Medication Orders Zithromax Z-Kimo 250 mg tablet 2023 024 [id number], [address], [place], [place], [id number], 4 14:45:31 benzonatat e 200 mg capsule 2023 024 [id number], [address], [place], [place], [id number], 4 10:53:48 hydrocodon e 5 mg-acetami nophen 325 mg tablet 2023 024 [id number], [address] [facility], [place], [place], [id number], 11:04:15 Patient TargetsNo targets recorded. Patient Instructions Encounter Date Encounter Id Patient Instructions Last Modified By Organization Details Last Modified Time 03/08/2024 [id number] Follow up in 1 month for Medicare Annual Wellness exam Prescription sent to pharmacy Obtain labs Tests: Referral: Recommend: Tetanus vaccine Shingles vaccine Not available 03/08/2024 11:01:13 04/05/2024 [id number] dementia rating scale-2* Not available 04/05/2024 14:43:10 multi-dimensiona l health assessment questionnaire* Not available 04/05/2024 14:43:10 care plan* Not available 04/05 14:43:10 advance directiv es: care instructions Not available 04/05/2024 14:43:10 advance care planning: care instructions Not available 04/05/2024 14:43:10 [place] Advance Directives Not available 04/05/2024 14:43:10 Follow up in 6 months Obtain labs Tests: Complete Dexa scan Referral: Recommend: Pneumococcal vaccine Tetanus vaccine Shingles vaccine Personalized Health Plan and Screening Recommendations Advance Directives - Do you have one? Advance Directives - Do we have your advance directive on file in your health record? Primary Prevention/Interven tion (prevents or decreases the chance of common diseases from occurring) Smoking Risk: Non Smoker Alcohol Misuse Screening: Negative Weight: Appropriate Physical activity: Appropriate physical activity minimum of 10-20 minutes of activity that causes mild breathlessness/day minimum of 20-30 minutes activity that causes mild breathlessness/day Nutrition: Good Refer to attached handout Heart-Healthy Diet: After Your Visit Refer to attached handout DASH Diet: After Your Visit Fall Risk (screened today): Low Refer to attached handout Preventing Falls: After your Visit Vaccines Pneumococcal: Ordered Recommended today Influenza: Ordered Recommended today Chronic Disease Risks Stroke: Low Risk I have no recommendations Heart Attack: Low risk I have no recommendations Clogging of the Arteries: Low risk I have no recommendations Diabetes: Low Risk I have no recommendations Secondary Prevention/Interven tion (detects treatable diseases before they may cause symptoms, disability, or ) Breast Cancer Screening with mammogram: Cervical/Uterine/Ov dwayne Cancer Screening: Osteoporosis Screening: Your next DEXA in: Ordered Date Screening Last Performed: Colon Cancer Screening: Colonoscopy Fecal Occult Blood Cologuard (DNA stool test) Date Screening Last Performed: __2023 Eye Disease Screening: Dementia Risk: Low I have no recommendations Depression Screening: Negative Not available 04/05/2024 14:42:13 05/17/2024 [id number] patient will hav e a sinus CT completed. We will follow-up when those results become available. Did discuss the likelihood of seeing Dr. Aj for surgical intervention pending the CT results. [email or web address] Not available 05/17/2024 14:36:36 Reason for Referral Physical Therapist Referral for Pain in right hip joint PLease contact patient to schedule Referring Physician: Karen Mckay, Orthopedic Surgery, Encounter Date: 01/05/2024 Results Created Date Observation Date Name Description Value Unit Range Abnormal Flag Note LastModifiedBy Organization Detail LastModifiedTime 03/21/20 24 03/21/2024 COLOG UARD cologuard result reportable NEGATI VE negati ve normal NEGAT ALEIDA TEST RESUL T. A negat aleida Colog uard resul t indic ates a low likel ihood that a color ectal cance r (CRC) or advan usama adeno ma (ian omato us polyp s with more advan usama pre-m align ant featu res) is prese nt. The chanc e that a perso n with a negat aleida Colog uard test has a color ectal cance r is less than 1 in 1500 (nega tive predi ctive value >99.9 %) or has an advan usama adeno ma is less than 5.3% (nega tive predi ctive value 94.7% ). These data are based on a prosp ectiv e cross -sect ional study of 10,00 0 indiv idual s at tabor ge risk for color ectal cance r who were scree amy with both Colog uard and colon oscop y. (Stephaniee isai Bravo. et al, N Engl J Med 2014; 370(1 4):12 86-12 97) The gena l value (refe rence range ) for this assay is negat aleida. COLOG UARD RE-SC REENI NG RECOM MENDA TION: Perio dic color ectal cance r scree luis manuel is an impor tant part of preve ntive healt hcare for asymp tomat ic indiv idual s at [facility] risk for color ectal cance r. Follo wing a negat aleida Colog uard resul t, the Ameri can Cance r Socie ty and U.S. Multi -Soci ety Task Force scree luis manuel guide lines recom mend a Colog uard re-sc reeni ng inter halina of 3 years . Refer ences : Ameri can Cance r Socie ty Guide line for Color ectal Cance r Scree luis manuel: https ://kacie w.can cer.o rg/ca ncer/ colon -rect al-ca ncer/ detec tion- diagn osis- stagi ng/ac s-rec ommen datio ns.ht ml.; Burt DK, Ganesh howard CR, Gabo GarciaK, Color ectal Cance r Scree luis manuel: Recom menda tions for Physi cians and Patie nts from the U.S. Multi -Soci ety Task Force on Color ectal Cance r Scree luis manuel , Am Radha gueavraog y 2017; 112:1 016-1 030. TEST DESCR IPTIO N: Zarephath site algor ithmi c milad sis of stool DNA-b iocassidy kerbriana with hemog lobin immun oassa y. Quant itati ve value s of indiv idual bioma rkers are not repor table and are not assoc iated with indiv idual bioma rker resul t refer ence range s. Colog uard is inten ded for color ectal cance r scree luis manuel of adult s of eithe r sex, 45 years or older , who are at [facility]-dc sk for color ectal cance r (CRC) . Colog uard has been appro domenica for use by the U.S. FDA. The perfo rmanc e of Colog uard was estab lishe d in a cross secti onal study of [facility]-ri sk adult s aged 50-84 . Colog uard perfo rmanc e in patie nts ages 45 to 49 years was estim ated by sub-g anabellap milad sis of near- age group s. Colon oscop ies perfo rmed for a posit aleida resul t may find as the most clini jillian signi fican t lesio n: color ectal cance r [4.0% ], advan usama adeno ma (incl uding sessi le merlyn pat polyp s great er than or equal to 1cm diame ter) [20%] or non- advan usama adeno ma [31%] ; or no color ectal neopl carline [45%] . These estim ates are deriv ed from a prosp ectiv e cross -sect ional scree luis manuel study of 0 indiv idual s at [facility] risk for color ectal cance r who were scree amy with both Colog uard and colon oscop y. (Sarah Salinas et al, N Engl J Med 2014; 370(1 4):12 86-12 97.) Colog uard may produ ce a false negat aleida or false posit aleida resul t (no color ectal cance r or preca ncero us polyp prese nt at colon oscop y follo w up). A negat aleida Colog uard test resul t does not guara ntee the absen ce of CRC or advan usama adeno ma (pre- cance r). The curre nt Colog uard scree luis manuel inter halina is every 3 years . (Amer ican Cance r Socie ty and U.S. Multi -Soci ety Task Force ). Colog uard perfo rmanc e data in a 0 patie nt pivot al study using colon oscop y as the refer ence metho d can be acces sed at the [facility] wing locat ion: www.e xactl abs.c om/re sults . Addit ional descr iptio n of the Colog uard test proce ss, warni ngs and preca ution s can be found at www.lexie blanchard.lexie om. Not Available [facility] (Cologuard Orders Only) [address], [place], [address], 03/28/2024 21:41:07 01/05/20 24 XR, hip + pelvi s, unila teral No observ ation record ed. [email or web address] [facility] [address], [place], [address], 01/05/2024 10:04:09 02/16/20 24 02/16/2024 MAMMO , scree luis manuel, digit al, bilat eral No observ ation record ed. [email or web address] [facility] [address], [place], [address], 02/16/2024 16:01:02 Result Notes None recorded. Problems Name Problem SNOMED Code Status Onset Date Resolution Date Notes Provider Name and Address Organization Details Recorded Time Constipati on 99923572 Active Skye Gutierrez APRN [address], [place], [address] , [employer] 4 10:55:25 Heartburn 67405112 Active Not Available [facility] 3 08:57:31 Plantar fasciitis 309611588 Active Not Available [facility] 3 08:57:31 Gastroesop hageal reflux disease 859315462 Active Skye Gutierrez APRN [address], [address], [place], [address] , [employer] 4 10:55:28 Bloating symptom 521366282 Active Not Available [facility] 3 08:57:31 Burping 903090190 Active Not Available [facility] 3 08:57:31 Sinusitis 07310951 Active Not Available [facility] 3 08:57:31 Disorder of vitamin D 727740641 Active Not Available [facility] 3 08:57:31 Vertigo 356023896 Active Skye Gutierrez APRN [address], [address], [place], [address] , [employer] [facility] 4 10:56:13 Dizziness 370928181 Active Not Available [facility] 3 08:57:31 Anxiety 78332843 Active Skye Gutierrez APRN [address], [address], [place], [address] , [employer] [facility] 4 10:55:20 Mastoiditi s 30518201 Active Not Available [facility] 3 08:57:31 Medial epicondyli tis 01334578 Active Not Available [facility] 3 08:57:31 Iron deficiency anemia 55589268 Active 2017 Skye Gutierrez APRN [address], [address], [place], [address] , [employer] [facility] 4 10:55:47 Neoplasm of uncertain behavior of skin 52294284 Active Not Available [facility] 3 08:57:32 Glaucoma 79468475 Active 2022 Skye Gutierrez APRN [address], [address], [place], [address] , [employer] [facility] 4 10:55:31 Migraine 23894485 Active 2022 Skye Gutierrez APRN [address], [address], [place], [address] , [employer] [facility] 4 10:56:17 Acute sinusitis 18709088 Active 2022 BRIGTITE Mayorga [address], [address], [place], [address] , [employer] S [facility] 3 11:33:21 Low back pain 381653071 Active 2022 RAQUEL Knapp [address], [address], [place], [address] , [employer] [facility] 3 11:20:00 Cystocele 868588679 Active 2022 Dawn Cazares MD [address], [address], [place], [address] , [facility] 3 14:40:01 Pain of right shoulder joint 3569053378535 9100 Active 2022 Dawn Cazares MD [address], [address], [place], [address] , [facility] 3 16:38:30 Tendinitis of right shoulder 9892452301916 101 Active 2022 Jaclyn Watkins CMA [facility] [place] [facility] 3 13:17:10 Palpitatio ns 96263893 Active 2023 Dawn Cazares MD [address], [address], [place], [address] , [facility] 4 10:24:00 Thyroid function tests abnormal 765044343 Active 2023 Dawn Cazares MD [address], [address], [place], [address] , [facility] 4 08:06:34 Hyperthyro idism 60707222 Active 2023 Skye Gutierrez APRN [address], [address], [place], [address] , [facility] 4 10:55:35 Cough 44963993 Active 2023 RAQUEL Oconnell [address], [address], [place], [address] , [facility] 4 11:30:51 Impacted cerumen of bilateral ears 0532352993640 108 Active 2023 RAQUEL Oconnell [address], [address], [place], [address] , [facility] 4 11:32:57 Pain in right hip joint 9844505587789 02 Active 2023 Candie Estrella, [employer], [facility] 4 09:41:02 Chronic sinusitis 70617655 Active 2024 Skye Gutierrez CONTROL MANAGER [address], [address], [place], [address] , [facility] [employer] [facility] 5 14:55:00 Problem Notes None recorded. Procedures Surgical History Date Name Laterality Status Provider Name and Address Organization Details Recorded Time 04/05/20 24 Medicare Wellness CPT Code, subsequent completed Skye Gutierrez APRN [address], [address], [place], [address], [facility] [employer] [facility] 03/31/2024 20:39:50 10/27/19 24 Chronic care management services completed KEVIN Knapp-Lexie [address], [address], [place], [address], [facility] [employer] [facility] 11/04/2023 17:18:20 Cataract Surgery completed Not Available [facility] 06/24/2022 08:54:41 section completed Not Available [facility] 06/24/2022 08:54:41 tonsillectomy completed Not Available [facility] 06/24/2022 08:54:41 Imaging Results Imaging Date Name Status LastModified by Organiz ation Details LastModified Time 01/05/2024 XR, hip + pelvis, unilateral completed [email or web address] [facility] [address], [place], [address], 01/05/2024 10:04:09 02/16/2024 MAMMO, screening, digital, bilateral completed [address], [place], [address], 02/16/2024 16:01:02 Procedure Notes None recorded. Medical Equipment None Reported. Allergies Allergen ID Allergen Name Allergen Category Reaction Reaction Severity Criticality Documentation Date Start Date Code Code System Note Provider Name and Address Organization Details Recorded Time 70534 Substance with sulfonami de structure and antibacte rial mechanism of action (substanc e) medicatio n Not available Not available Not available 06/24/2022 72921 8003 SNOMED Not Available [facility] 3 09:00:48 15011 Demerol medicatio n Not available Not available Not available 06/24/2022 64762 1 RxNorm Not Available [facility] 3 09:00:48 Medications Name Sig Start Date Stop Date Status Note LastModified by Organization Details LastModified Time cyclobenza natali 10 mg tablet TAKE 1 TABLET BY MOUTH THREE TIMES DAILY NEEDED FOR MUSCLE SPASM 04/02 completed Not Available Not Available Not Available azelastine 0.05 % eye drops INSTILL 1 DROP INTO BOTH EYES EVERY MORNING active Not Available Not Available No t Available Colace 100 mg capsule Take 1 capsule twice a day by oral route as needed. 12/30 completed Not Available Not Available Not Available prednisone 10 mg tablet 06/09 completed Not Available Not Available Not Available tizanidine 2 mg tablet TK 1 TO 2 TS PO TID PRN active Not Available Not Available No t Available clindamyci n HCl 300 mg capsule 12/30 completed Not Available Not Available Not Available polyethyle ne glycol 3350 17 gram oral powder packet MIX THE CONTENTS OF 1 PACKAGE WITH 4 TO 8 OZ OF LIQUID AND DRINK DAILY NEEDED CONSTIPAT ION 05/31 completed Not Available Not Available Not Available azithromyc in 250 mg tablet TAKE 2 TABLETS (500 MG) BY ORAL ROUTE ONCE DAILY FOR 1 DAY THEN 1 TABLET (250 MG) BY ORAL ROUTE ONCE DAILY FOR 4 DAYS 11/28 completed Not Available Not Available Not Available ibuprofen 800 mg tablet TAKE 1 TABLET BY MOUTH THREE TIMES DAILY NEEDED active Not Available Not Available No t Available fluconazol e 150 mg tablet 1 po qweek x 2 weeks active Not Available Not Available No t Available benzonatat e 200 mg capsule Take 1 capsule 3 times a day by oral route as needed. 03/08 completed Not Available Not Available Not Available hydrocodon e 5 mg-acetami nophen 325 mg tablet TAKE 1 TABLET BY MOUTH DAILY NEEDED active Not Available Not Available No t Available prednisone 20 mg tablet TAKE 2 TABLETS BY MOUTH DAILY 08/30 completed Not Available Not Available Not Available Tubersol 5 tub. unit/0.1 mL intraderma l injection solution 0.1 ml intraderm al x 1 02/[address] [facility]# [id number]- 0752-9 8 Not Available Not Available Not Available sertraline 100 mg tablet TAKE 1 AND 1/2 TABLETS BY MOUTH EVERY DAY 09/20 completed Not Available Not Available Not Available terconazol e 0.8 % vaginal cream I 1 APL VAGINALLY HS FOR 3 DAYS active Not Available Not Available No t Available permethrin 5 % topical cream APPLY FROM HEAD TO TOE. LEAVE ON FOR 8 TO 14 HOURS BEFORE WASHING OFF. active Not Available Not Available No t Available hydroxyzin e pamoate 50 mg capsule 1 po q6 hours prn anxiety active Not Available Not Available No t Available penicillin V potassium 500 mg tablet Take 1 tablet twice a day by oral route for 7 days. active Not Available Not Available No t Available hydroxyzin e HCl 50 mg tablet 1 po q6 hours prn anxiety 12/30 completed Not Available Not Available Not Available acetaminop hen 300 mg-codeine 30 mg tablet 12/30 completed Not Available Not Available Not Available Tamiflu 75 mg capsule Take 1 capsule twice a day by oral route for 5 days. 10/10 completed Not Available Not Available Not Available omeprazole 40 mg capsule,de layed release Take 1 capsule every day by oral route. active Not Available Not Available No t Available tramadol 50 mg tablet 1 po q4-6 hours prn pain active Not Available Not Available No t Available prednisone 10 mg tablets in a dose pack Take 1 dose pk by oral route as directed. 06/09 completed Not Available Not Available Not Available meloxicam 7.5 mg tablet TK 1 T PO QD 09/20 completed Not Available Not Available Not Available alprazolam 0.5 mg tablet TAKE 1/2 TO 1 TABLET BY MOUTH EVERY DAY NEEDED FOR SEVERE ANXIETY 04/02 completed Not Available Not Available Not Available amoxicilli n 875 mg tablet TAKE 1 TABLET BY MOUTH EVERY 12 HOURS FOR 7 DAYS active Not Available Not Available No t Available famotidine 20 mg tablet TAKE 1 TABLET BY MOUTH TWICE DAILY 04/02 completed Not Available Not Available Not Available estradiol 1 mg tablet TAKE 1 TABLET BY MOUTH DAILY active Not Available Not Available No t Available malathion 0.5 % lotion APPLY BY TOPICAL ROUTE TO DRY HAIR AND RUB GENTLY UNTIL THE SCALP IS THOROUGHL Y MOISTENED AND LET DRY NATURALLY ; SHAMPOO AFTER 8-12 HOURS 04/02 completed Not Available Not Available Not Available meclizine 25 mg tablet TAKE 1 TABLET BY MOUTH EVERY 6 HOURS NEEDED FOR VERTIGO 04/02 completed Not Available Not Available Not Available phenazopyr idine 100 mg tablet 11/10 completed Not Available Not Available Not Available timolol maleate 0.25 % eye drops INSTILL 1 DROP IN BOTH EYES AT BEDTIME active Not Available Not Available No t Available timolol 0.5 % eye drops INSTILL 1 DROP INTO AFFECTED EYE(S) BY OPHTHALMI C ROUTE 2 TIMES PER DAY 05/31 completed Not Available Not Available Not Available pantoprazo le 40 mg tablet,del ayed release TAKE 1 TABLET BY MOUTH EVERY DAY 04/02 completed Not Available Not Available Not Available nitrofuran toin macrocryst al 100 mg capsule Take 1 capsule twice a day by oral route for 7 days. active Not Available Not Available No t Available lansoprazo le 30 mg capsule,de layed release 1 po qday active Not Available Not Available No t Available brimonidin e 0.2 % eye drops 04/02 completed Not Available Not Available Not Available progestero ne micronized 200 mg capsule TAKE 1 CAPSULE BY MOUTH EVERY NIGHT AT BEDTIME active Not Available Not Available No t Available sertraline 25 mg tablet TAKE 1 TABLET BY MOUTH DAILY 12/30 completed Not Available Not Available Not Available omeprazole 20 mg capsule,de layed release TK 1 C PO BID 09/20 completed Not Available Not Available Not Available diclofenac sodium 75 mg tablet,del ayed release 09/20 completed Not Available Not Available Not Available polyethyle ne glycol 3350 (bulk) powder MIX THE CONTENTS OF 1 PACKAGE WITH 4 TO 8 OZ OF LIQUID AND DRINK DAILY NEEDED CONSTIPAT ION 01/02 completed Not Available Not Available Not Available estradiol 0.5 mg tablet TAKE 1 TABLET BY MOUTH DAILY active Based on labs Not Available Not Available Not Available ergocalcif suhail (vitamin D2) 1,250 mcg (50,000 unit) capsule TAKE ONE CAPSULE BY MOUTH EVERY WEEK 04/02 completed Not Available Not Available Not Available polyethyle ne glycol 3350 17 gram/dose oral powder U ENTIRE 255 GRAMS BOTTLE WITH 64 OUNCES OF CLEAR LIQUID UTD FOR COLONOSCO PY PREPARATI ON 11/05 completed Not Available Not Available Not Available levofloxac in 500 mg tablet 1 po qday x 7 days active Not Available Not Available No t Available levofloxac in 750 mg tablet Take 1 tablet every day by oral route for 5 days. active Not Available Not Available No t Available methylpred nisolone 4 mg tablets in a dose pack TK DIRECTED active Not Available Not Available No t Available albuterol sulfate HFA 90 mcg/actuat ion aerosol inhaler Inhale 2 puffs every 4-6 hours by inhalatio n route as needed. 04/02 completed Not Available Not Available Not Available timolol maleate 0.5 % eye drops INSTILL 1 DROP IN BOTH EYES TWICE DAILY active Not Available Not Available No t Available fluticason e propionate 50 mcg/actuat ion nasal spray,susp ension INSTILL 1 TO 2 SPRAYS IN EACH NOSTRIL QHS 09/20 completed Not Available Not Available Not Available sertraline 50 mg tablet TAKE 1 TABLET BY MOUTH DAILY 03/08 completed Not Available Not Available Not Available loratadine 10 mg tablet Take 1 tablet every day by oral route for 30 days. 12/30 completed Not Available Not Available Not Available naproxen 500 mg tablet TK ONE T PO Q 12 H PRN P 12/30 completed Not Available Not Available Not Available progestero ne micronized 100 mg capsule TAKE 1 CAPSULE BY MOUTH EVERY NIGHT AT BEDTIME 03/08 completed Not Available Not Available Not Available amoxicilli n 875 mg-potassi um clavulanat e 125 mg tablet TAKE 1 TABLET BY MOUTH EVERY 12 HOURS FOR 7 DAYS 11/28 completed Not Available Not Available Not Available dorzolamid e 2 % eye drops INSTILL 1 DROP IN BOTH EYES TWICE DAILY 04/02 completed Not Available Not Available Not Available bupropion HCl XL 300 mg 24 hr tablet, extended release TAKE 1 TABLET BY MOUTH EVERY DAY 04/02 completed Not Available Not Available Not Available bupropion HCl XL 150 mg 24 hr tablet, extended release Take 1 tablet every day by oral route. 09/20 completed Not Available Not Available Not Available nitrofuran toin monohydrat e/macrocry stals 100 mg capsule 11/10 completed Not Available Not Available Not Available metronidaz ole 1 % topical gel APPLY TOPICALLY TO FACE EVERY DAY 05/31 completed Not Available Not Available Not Available testostero ne CREAM active CREAM Not Available Not Available Not Available Zyrtec active Not Available Not Availa ble Not Available ferrous sulfate 324 mg (65 mg iron) tablet,del ayed release 1 po tid with food 09/20 completed 1 po qday 8 Not Available Not Available Not Available FeroSul 325 mg (65 mg iron) tablet TAKE ONE TABLET BY MOUTH ONCE DAILY WITH JUICE 04/02 completed Not Available Not Available Not Available omeprazole 20 mg tablet,del ayed release 1 po bid active Not Available Not Available Not Available spinosad 0.9 % topical suspension APPLY 30 - 120 MILLILITE RS BY TOPICAL ROUTE TO DRY HAIR, SATURATIN G HAIR AND SCALP. AFTER 10 MIN RINSE WITH WARM WATER. MAY REPEAT IN 7 DAYS 04/02 completed Not Available Not Available Not Available Fluvirin 8670-7482 45 mcg (15 mcg x 3)/0.5 mL intramuscu lar suspension ADM 0.5ML UTD 12/30 completed Not Available Not Available Not Available Virtussin AC 10 mg-100 mg/5 mL oral liquid TAKE 5 ML BY MOUTH EVERY 6 HOURS NEEDED FOR COUGH 08/30 completed Not Available Not Available Not Available ivermectin 1 % topical cream APPLY TOPICALLY TO THE AFFECTED AREA DAILY active Not Available Not Available No t Available Vitals Date Recorded Body height Body mass index (BMI) Body weight Body temperature Heart rate Oxygen saturation Oxygen saturation in Arterial blood by Pulse oximetry Systolic blood pressure Diastolic blood pressure Provider Name and Address Organization Details Last Updated DateTime 4 157.48 cm 24.9 kg/m2 89335.5 6 g 98 [degF] 80 /min 98 % 98 % 130 mm[Hg] 80 mm[Hg] GRANT Farah [employer] 4 11:25:00 Date Recorded Body height Body mass index (BMI) Body weight Provider Name and Address Organization Details Last Updated DateTime 01/05/2024 157.48 cm 25.2 kg/m2 42417.75 g Candie Estrella [facility]NA [place] [employer] 01/05/2024 09:39:55 Date Recorded Body height Body mass index (BMI) Body weight Body temperature Heart rate Oxygen saturation Oxygen saturation in Arterial blood by Pulse oximetry Systolic blood pressure Diastolic blood pressure Provider Name and Address Organization Details Last Updated DateTime 4 157.48 cm 25.4 kg/m2 18277.3 4 g 97.2 [degF] 61 /min 97 % 97 % 128 mm[Hg] 68 mm[Hg] Mine Christianson [facility] [employer] [facility] 4 10:36:25 Date Recorded Body height Body mass index (BMI) Body weight Body temperature Heart rate Oxygen saturation Oxygen saturation in Arterial blood by Pulse oximetry Systolic blood pressure Diastolic blood pressure Provider Name and Address Organization Details Last Updated DateTime 4 157.48 cm 26 kg/m2 80289.1 2 g 96.9 [degF] 60 /min 98 % 98 % 108 mm[Hg] 64 mm[Hg] Bhumika Veras RN [facility] [facility] 4 14:15:58 Date Recorded Body height Body mass index (BMI) Body weight Provider Name and Address Organization Details Last Updated DateTime 05/17/2024 157.48 cm 25 kg/m2 49287.44 g Madelyn Rosario RN [facility] 05/17/2024 13:59:01 Social History Question Answer Notes LastModified by Organizat ion Details LastModified Time Tobacco Smoking Status Never Smoker Not Available [facility] 06/24/2022 08:54:29 What Is Your Level Of Alcohol Consumption? None [id number] Information not available 06/24/2022 What Is Your Level Of Caffeine Consumption? None [id number] Information not available 06/24/2022 How Much Tobacco Do You Chew? None MIGRATION.17582 [id number] Information not available 06/24/2022 In The 14 Days Before Symptom Onset, Have You Had Close Contact With A Laboratory-confi rmed COVID-19 While That Case Was Ill? No [id number] Information not available 06/24/2022 In The 14 Days Before Symptom Onset, Have You Had Close Contact With A Person Who Is Under Investigation For COVID-19 While That Person Was Ill? No [id number] Information not available 06/24/2022 Are You Currently Employed? Yes Information not available 03/08/2024 What Type Of Diet Are You Following? REGULAR [id number] Information not available 06/24/2022 Which Illicit Or Recreational Drugs Have You Used? No [id number].[id number] Information not available 06/24/2022 Do You Or Have You Ever Used E-cigarettes Or Vape? Never Used Electronic Cigarettes [id number] Information not available 06/24/2022 What Is Your Occupation? [employer] Information not available 03/08/2024 Have There Been Any Changes To Your Family Or Social Situation? No Information not available 03/08/2024 Do You Use Insect Repellent Routinely? No Information not available 03/08/2024 Where Do You Live? SingleLevelHouse Information not available 03/08/2024 What Was The Date Of Your Most Recent Tobacco Screening? 03/08/2024 Information not available 03/08/2024 How Many Children Do You Have? 1 Information not available 03/08/2024 Do You Have Any Pets? Yes Information not available 03/08/2024 What Is Your Relationship Status? Single Information not available 03/08/2024 Do You Use Your Seat Belt Or Car Seat Routinely? Yes Information not available 03/08/2024 Do You Have Smoke And Carbon Monoxide Detectors In Your Home? Yes Information not available 03/08/2024 At What Age Did You Start Smoking Tobacco? 2 [id number] Information not available 06/24/2022 Are You Passively Exposed To Smoke? No Information not available 03/08/2024 Do You Or Have You Ever Used Smokeless Tobacco? Never Used Smokeless Tobacco MIGRATION.[id number] Information not available 06/24/2022 Are There Any Smokers In Your House? No Information not available 03/08/2024 How Much Tobacco Do You Smoke? No MIGRATION.39716 74985 Information not available 06/24/2022 Do You Feel Stressed (tense, Restless, Nervous, Or Anxious, Or Unable To Sleep At Night)? [id number] Information not available 03/08/2024 Do You Use Any Illicit Or Recreational Drugs? No MIGRATION.65097 [id number] Information not available 06/24/2022 Do You Use Sunscreen Routinely? No Information not available 03/08/2024 How Many Years Have You Smoked Tobacco? 0 MIGRATION.42149 52491 Information not available 06/24/2022 Have You Recently Traveled Abroad? No Information not available 03/08/2024 Do You Have Any Dietary Restrictions? No MIGRATION.77789 43542 Information not available 06/24/2022 Do You Or Have You Ever Used Any Other Forms Of Tobacco Or Nicotine? No MIGRATION.77548 41757 Information not available 06/24/2022 Sex: Unknown Functional Status Question Answer Note LastModified by Organizat ion Details LastModified Time What is your exercise level? Moderate [id number] Information not available 06/24/2022 Mental Status None recorded. Family History Relationship Description Onset Age of this Age Resolved Age Notes LastModified by Organization Details LastModified Time Brother Atrial fibrillation [email or web address] Not available 0 05/17/2024 13:56:13 Brother Cerebrovascu lar accident [email or web address] Not available 0 05/17/2024 13:56:13 Father Cerebrovascu lar accident [email or web address] Not available 0 05/17/2024 13:56:13 Father Atrial fibrillation [email or web address] Not available 0 05/17/2024 13:56:13 Mother Heart disease [email or web address] Not available 2022 11:54:38 Mother Hypertensive disorder [email or web address] Not available 2022 11:54:49 Mother Chronic sinusitis [email or web address] Not available 2024 14:03:15 Mother Decreased hearing DUE TO UNTREA PAT EAR INFECT IONS A KID [email or web address] Not available 05/17/2024 14:03:42 Notes:stroke brother - Medical History Condition Response ANXIETY DISORDER Y ANEMIA/BLOOD DISORDER Y GERD/NAUSEA Y DIZZINESS Y ENT Y BOWEL PROBLEMS Y HAVE YOU BEEN HOSPITALIZED OR SEEN IN [facility] IN THE PAST YEAR ? Y HEARTBURN / REFLUX Y Gynecological History Statement/Question Response Date of Last Mammogram Date of LMP Dislike of Light during Menstrual Headac he N Date of Last Pap Current Control Method Menopause Breast Problems no How many live births 2 Date of Last Mammogram Date of Last Colonoscopy Most Recent Bone Density Menses Monthly No Obstetrics History GPAL:G 2 P 2 0 0 2 Type Value Multiple Births 0 Full Term 2 Induced 0 Spontaneous 0 Premature 0 Living 2 Ectopics 0 Total 2 Immunizations Vaccine Type Date Status Note Provider Nam e and Address Organization Details Recorded Time Influenza, split virus, trivalent, preservative 3 completed Skye Gutierrez, CONTROL MANAGER [address], [facility] [address], [place], [address], [facility] [employer] 03/04/2024 10:52:19 Influenza, split virus, trivalent, preservative 2 completed Not Available [facility] 06/24/2022 09:00:40 Influenza, split virus, quadrivalent, PF 2 completed Skye Gutierrez APRN [address], [address], [place], [address], [employer] 03/04/2024 10:52:19 Influenza, split virus, quadrivalent, PF 9 completed Not Available [facility] 06/24/2022 09:00:40 Influenza, split virus, quadrivalent, PF 8 completed Not Available [facility] 06/24/2022 09:00:40 Influenza, split virus, quadrivalent, PF 0 completed Not Available [facility] 06/24/2022 09:00:40 Past Encounters Encounter ID Performer Location Encounter Start Date Encounter Closed Date Diagnosis/Indication Diagnosis SNOMED-CT Code Diagnosis ICD10 Code Diagnosis Note [id number] [address] [place] [address] 08/23/2020 00:00:00 08/23/2020 12:35:28 [id number] _ATHENA_M IGRATION_ DEFAULT_1 _1 , 10/30/2020 00:00:00 10/30/2020 13:03:[id number] [place] [address] 01/14/2021 00:00:00 01/14/2021 14:33:[id number] [place] [address] 03/12/2021 00:00:00 03/12/2021 13:15:25 [id number] [facility] [place] [facility] [address] [facility] [address] [place] [address] 03/25/2021 00:00:00 03/25/2021 10:54:42 [id number] [facility] [place] [address] [facility] [address] [place] [address] 12/17/2021 00:00:00 12/17/2021 12:26:44 [id number] [facility] [place] [address] [facility] [address] [place], [place] [address] 04/07/2022 00:00:00 04/07/2022 17:45:34 [id number] [facility] [place] [address] [facility] [address] [place] [address] 06/09/2022 00:00:00 06/09/2022 16:31:55 [id number] BRIGITTE Marks [facility] [address] [place] [address] 04/02/2023 11:29:26 04/02/2023 13:23:22 Pain of right shoulder joint 2104288380 2525669 M25.215 [id number] Shayan Ramirez MD [facility] [address] [place] [address] 05/31/2023 16:21:38 05/31/2023 17:37:31 Pain of right shoulder joint 8849182101 [id number] M25.512 [id number] Dawn Cazares MD [facility] [place] [address] [facility] [address] [place], [place] [address] 07/26/2023 09:59:03 07/26/2023 10:35:14 Anxiety 90798607 F41.9 agree with starting sertraline 50 mg daily with food in PMreviewed potential med s/ewill f/u with gynecology Palpitations 87424798 R0 0.2 R53.83 check labscardio logy referral given Hyperlipid emia screening 985097565 Z13.120 [id number] Citlaly Jacque [facility] [address] [place] [address] 08/10/2023 09:39:17 08/10/2023 10:20:55 [id number] RAQUEL Knapp [facility] [address] [place] [address] 10/04/2023 09:04:09 10/04/2023 09:14:18 [id number] RAQUEL Knapp [address] [place] [address] 10/27/2023 17:23:25 11/22/2023 18:36:12 [id number] RAQUEL O[facility] [address] [place] [address] 11/15/2023 11:16:08 11/15/2023 11:43:27 Cough 65017376 R05.9 Discussed OTC medication s for cough, warm tea and honey. Impacted c erumen of bilateral ears 5189296813 167786 H61.23 Discussed use of Debrox and other home remedies for cerumen removal as patient did not wish to have ears flushed in office. Acute sinusitis 45849653 J01.90 Discussed abx therapy. [id number] Karen Mckay NP [facility] [address] [facility] [address] [place] [address] 01/05/2024 09:34:12 01/05/2024 10:36:33 Pain in right hip joint 8856999409 13974 M25.549 [id number] Skye Gutierrez APRN [facility] [address] [place] [address] 03/08/2024 10:05:58 03/08/2024 11:09:39 Screening for malignant neoplasm of colon 995765543 Z12.11 Migraine 76822961 G43.90 [id number] Skye SHAILA Gutierrez [facility] [place] [address] [facility] [address] [place] [address] 04/05/2024 14:08:39 04/05/2024 14:55:57 Adult health examination 982237266 Z00.00 Screening for disorder 473691263 Z13.9 Screening for osteoporosis 129451785 Z13.820 Hepatitis C screening 41 3082503 Z11.59 [id number] KEVIN Polanco [facility] [place] [facility] [address] [place] [address] 05/17/2024 13:52:01 05/17/2024 14:37:08 Chronic sinusitis 35505033 J32.9 Health Concerns Section Related Observation LastModified by Organization Detai ls LastModified Time None Recorded Concern Status LastModified by Organization Details LastModified Time None Recorded Advance Directives Directive None Recorded Payers Encounter Date Sequence Insurance Name Policy Number Policy Gamble Covered Member ID Gamble Member ID Guarantor Name 11/15/2023 1 [employer] - [employer]US (MEDICARE REPLACEMENT HMO) Carmen Escamilla [id number] Carmen Escamilla 11/15/2023 2 [place] [employer] Carmen Escamilla [id number] Carmen Escamilla 01/05/2024 1 [employer] - [place]US (MEDICARE REPLACEMENT HMO) Carmen Escamilla [id number] Carmen Escamilla 01/05/2024 2 [place] [employer] Carmen Escamilla [id number] Carmen Escamilla 03/08/2024 1 [employer] - [employer]US (MEDICARE REPLACEMENT HMO) Carmen Escamilla [id number] Carmen Escamilla 03/08/2024 2 [place] [employer] Carmen Escamilla [id number] Carmen Escamilla 04/05/2024 1 [employer] - [employer]US (MEDICARE REPLACEMENT HMO) Carmen Escamilla [id number] Carmen Escamilla 04/05/2024 2 [place] Carmen Escamilla [id number] Carmen Escamilla 05/17/2024 1 [employer] - [employer] PLUS (MEDICARE REPLACEMENT HMO) Carmen Escamilla [id number] Carmen Escamilla 05/17/2024 2 [place] [employer] Carmen Escamilla [id number] Carmen Escamilla Notes Date Note Type Note Provider Name and Address Organization Details Recorded Time 11/15/2023 text/html Patient is a 58 year old female that presents to the office for sinus issues. Patient reports she was at in [place] 3 weeks, was diagnosed with acute sinusitis and prescribed Amoxicllin 875mg BID for week. Patient reports she also had right side cerumen impaction and was told to take Debrox. Patient reports her sinuses have cleared up some but is still having mild issues. Patient reports she did the Debrox and it did not go well. Patient reports persistent non productive cough. Patient denies chest pain and shortness of breath, nausea vomiting and diarrhea. Patient denies fevers. KEVIN Oconnell-Lexie [address] [place], [place], [address], [employer] 11/15/2023 11:44:06 03/08/2024 text/html Carmen presents today for 4 month follow up on her controlled meds. She states that she has sciatica and spinal stenosis that causes her pain. She states that she usually gets a refill of hydrocodone/acetamino phen 10 tablets that will last her approximately a month. Skye Gutierrez APRN [address], [place], [address], [employer] 03/08/2024 11:04:26 04/05/2024 text/html Carmen presents today for her Medicare Annual Wellness Exam. She denies any illness or injuries. 03/08/2024Carmen presents today for 4 month follow up on her controlled meds. She states that she has sciatica and spinal stenosis that causes her pain. She states that she usually gets a refill of hydrocodone/acetamino phen 10 tablets that will last her approximately a month. Skye Gutierrez APRN [address], [place], [address], [employer] 04/05/2024 14:43:34 05/17/2024 text/html This patient has a past medical history significant for hyperthyroidism, iron deficiency anemia, anxiety, glaucoma, chronic sinusitis, GERD, and mastoiditis. She presents to the office for complaint of persistent sinus headaches and pressure, and nasal congestion that has been ongoing for many years. She was last seen in this office in 2019 and states that she did have a CT scan that revealed a deviated septum and polyps and was advised to have surgical intervention in which she had declined. She states that she currently has a headache every single day. She notes that she was using Sudafed for symptom relief but unfortunately was diagnosed with glaucoma last year and her plug overwrap machine tender told her to no longer use Sudafed. She has been using hydrocodone that is prescribed by her PCP as needed due to the headaches. She notes that her PCP wanted her to follow back up with ENT so she can hopefully stop using the hydrocodone for symptom relief. States that she has used 800 mg of ibuprofen without symptom relief. In addition she is also using saline nasal sprays, steam showers, and daily Zyrtec. She is often on frequent antibiotics. She was recently on a round of antibiotics just over a month ago. She does note that she has a Z-Kimo on hand but does not want to do another round of antibiotics at this time. Madelyn Jeffery, KEY ACCOUNT MANAGER [address] [facility], [place] [address], [place], [address], [facility] 05/17/2024 14:36:40 OBGyn Episode No OBEpisode recorded.
--- OUTSIDE RECORDS SUMMARY | 2024-05-24 16:51 | XMS_ITS | Clinical Summary ---
Author Organization [facility] Address [address] [address] Phone Care Team Providers Care Smudger Name Role Phone Kendy Medrano MD Unavailable [phone] Dawn Cazares MD Primary Care Provider + Roberto Garcia DO Unavailable [phone] Sanna Vieyra MD Unavailable Medications polyethylene glycol (MIRALAX) Powder Use entire 255g bottle with 64oz of clear liquid as directed for colonoscopy prep. 255 g 0 7 Active azelastine (OPTIVAR) 0.05 % Solution INSTILL 1 DROP IN BOTH EYES EVERY MORNING Active hydrOXYzine (VISTARIL) 50 MG Capsule 1 po q6 hours prn anxiety Active ibuprofen (MOTRIN) 800 MG Tablet Take 800 mg by mouth. 3 Active levoFLOXacin (LEVAQUIN) 500 MG Tablet 1 po qday x 7 days Active omeprazole (PriLOSEC) 40 MG CAPSULE DELAYED RELEASE Take 1 capsule every day by oral route. Active sertraline (ZOLOFT) 50 MG Tablet Take 1 Tablet by mouth daily. Active terconazole (TERAZOL 3) 0.8 % Cream I 1 APL VAGINALLY HS FOR 3 DAYS Active timolol (TIMOPTIC) 0.25 % Solution Place 1 Drop in affected eye(s). Active tiZANidine (ZANAFLEX) 2 MG Tablet TK 1 TO 2 TS PO TID PRN Active traMADol (ULTRAM) 50 MG Tablet 1 po q4-6 hours prn pain Active Immunizations Immunization Administration Dates Next Due Influenza Vaccine, Quadrivalent, PF 03/26,02/14/2020,02/27/2019,2017 Influenza, Seasonal, Injecta ble, Undefined 03/02/2013,03/01/2012 Social History Tobacco Use Types Packs/Day Years Used Date Smoking Tobacco: Never Passive Smoke Exposure: Never Smokeless Tobacco: Never Tobacco Cessation:Counseling Given: No Alcohol Use Standard Drinks/Week Comments Never 0 (1 standard drink = 0.6 oz pur e alcohol) Sexually Active Control Partners Comments Yes Male Condom Male Comments Unknown Sex and Gender Information Value Date Recorded Sex Assigned at Not on file Legal 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 Gender Identity Not on file Sexual Orientation Not on file Last Filed Vital Signs Vital Sign Reading Time Taken Comments Blood Pressure 124/76 10/20/2023 1:28 PM CDT Pulse 70 10/20/2023 1:28 PM CDT Temperature 36.1 ??C (97 ??F) 10/20/2023 1:28 PM CDT Respiratory Rate 20 10/20/2023 1:28 PM CDT Oxygen Saturation 97% 10/20/2023 1:28 PM CDT Inhaled Oxygen Concentration - - Weight 62.1 kg (137 lb) 10/20/2023 1:28 PM CDT Height - - Body Mass Index - - Plan of Treatment Health Maintenance Due Date Last Done Comments Hepatitis C Virus (HCV) Screening 1967 TdaP Immunization 1967 Hepatitis B Immunization (1 of 3 - 19+ 3-dose series) 09/05/1986 Pap Smear 09/05/1988 Cervical Cancer Screening (CCS) 09/05/1997 HPV/Cotest 09/05/1997 Cologuard 09/05/2017 Immunochemical Fecal Occult Blood 09/05/2017 Mammogram 09/05/2017 Pneumococcal Immunization (50+ years) (1 of 1 - PCV) 09/05/2017 Zoster Immunization (1 of 2) 09/05/2017 Influenza Immunization (#1) 12/26/202303/26, 02/14/2020, 02/27/2019, Additional history exists SARS-COV-2 Immunization ( - 2024-25 season) 2023 Colonoscopy 11/26/2026 11/26/2016 Colorectal Cancer Screening 11/26/2026 Respiratory Syncytial Virus (RSV) Immunization (Adult) (1 - 1-dose 75+ series) 09/05/2042 11/26/2016 Meningococcal Immunization (ACWY) Aged Out No longer eligible based on patient's age to complete this topic Pneumococcal Immunization Combined Aged Out No longer eligible based on patient's age to complete this topic Rotavirus Immunization Aged Out No lo nger eligible based on patient's age to complete this topic Procedures Procedure Name Priority Date/Time Associated Diagnosis Comments COLONOSCOPY Routine 11/26/2016 from Last 3 Months or Most Recently Relevant to Health Maintenance Results * COLONOSCOPY (11/26/2016) us Kendy Medrano MD PROCEDURE/MINOR SURGIC AL ORDERABLES Final Result from Last 3 Months or Most Recently Relevant to Health Maintenance Insurance MEDICARE [employer] [place] Care Teams Smudger Relationship Specialty Start Date End Date Dawn Cazares MD [address] [place] [address] PCP - General Family Medicine 11/27/16 Kendy Medrano MD [address] [address] Obstetrics & Gynecology 06/11/16 Roberto Garcia DO [address] [place] [address] Gastroenterology 11/27/16 Sanna Vieyra MD [address] [address] Consulting Physician Endocrinology 10/15/23
--- OUTSIDE RECORDS SUMMARY | 2024-05-24 16:51 | XMS_ITS | Continuity of Care Document ---
Author Organization [facility] Address [address] [place] [address] [address] [place] [address] Phone Care Team Providers Care Medical Staff Physician Name Role Phone Amor OD, Roberto Unavailable Unavailable Procedures Procedure Date Office/outpatient Visit, Est Close Tear Duct Opening Eye Exam, New Patient Advance Directives Directive Yes / No Effective Date File Name No Information Encounters Encounter Description Practice Location Reason(s) For Visit Diagnoses Date Provider Providers Copied on Encounter Office/outpat ient Visit, Est [facility], [address] [place] [address] [address], [place], [place], [id number], [place] tel:[phone] [facility] No Information [address] Amor OD Roberto. [address] , [address], [place], [place], [facility], [place]. tel:[phone] [facility], [address] [place] [address] [address], [place], [place], [id number], tel:[phone] [facility] No Information [address] Diana. [address] , [address], [place], [address], [place]. tel:[phone] Family History Family Member Type Diagnosis Age At Onset No Information Payers Payer name Insurance type Covered constitution party ID Mao ham(s) Medicaid [facility] [id number] Social History Type Description Quantity Date Captured [...]
--- OUTSIDE RECORDS SUMMARY | 2024-05-24 16:51 | XMS_ITS | Referral Summary ---
Author Organization [facility] Address [address] [facility] [place] [place] [address] Care Team Providers Care Asset Protection Associate Name Role Phone Kendy Medrano MD Primary Care Provider [phone] Source Comments [facility],non-[facility] Affiliates and Associated Physician Practices is amultiple site organization consisting of ambulatory clinics and hospital sitesin [place], [place], [place] and [place]. This disclosure is being madepursuant to the Care Everywhere program and may not contain all information available regarding this patient. Last updated 18.[facility] Social History Tobacco Use Types Packs/Day Years Used Date Smoking Tobacco: Never Assessed Sex and Gender Information Value Date Recorded Sex Assigned at Not on file Gender Identity Not on file Sexual Orientation Not on file Plan of Treatment Not on file Care Teams Asset Protection Associate Relationship Specialty Start Date End Date Kendy Medrano MD [address] [facility] [address] [place] [address] PCP - General 06/16/18
--- OUTSIDE RECORDS SUMMARY | 2024-05-24 16:51 | XMS_ITS | Encounter Summary ---
Author Organization [facility] Address [address] [place] [address]. [place], [place] [address] [place] [address] Care Team Providers Care Syrup Filterer Name Role Phone Dawn Cazares MD Primary Care Provider [phone] Encounter Details Date Type Department Care Team (Late st Contact Info) Description 09/16/2023 [facility], [address] [address] Fauzia Brannon MA Social History Tobacco Use Types Packs/Day Years Used Date Smoking Tobacco: Never Smokeless Tobacco: Never Alcohol Use Standard Drinks/Week Comments Not Currently 0 (1 standard drink = 0.6 oz pur e alcohol) Comments Unknown Sex and Gender Information Value Date Recorded Sex Assigned at Not on file Legal Sex Female 7:15 PM CDT Gender Identity Not on file Sexual Orientation Not on file documented as of this encounter Plan of Treatment Not on file documented as of this encounter Procedures Procedure Name Priority Date/Time Associated Diagnosis Comments COMPREHENSIVE METABOLIC PANEL Routine 07/27/2023 CBC, MANUAL DIFF Routine 07/27/2023 THYROID STIM HORMONE TSH Routine 07/27/2023 LIPID PANEL Routine 07/26/2023 MAGNESIUM Routine 07/26/2023 documented in this encounter Results * COMPREHENSIVE METABOLIC PANEL (07/27/2023) SODIUM S/P/B 138 GLUCOSE 112 mg/dL AST 25 BUN 18 CREATININE S/P/B 0.80 0.5 - 1.0 CALCIUM S/P/B 8.9 POTASSIUM S/P/B 3.9 CHLORIDE S/P/B 108 ALT 12 GFR ESTIMATE 55 us Default History Genericprovider LABORATORY Edited Result - Final * CBC, MANUAL DIFF (07/27/2023) WBC 6.5 HGB 13.4 HCT 41.2 PLT 235 us Default History Genericprovider LABORATORY Edited Result - Final * THYROID STIM HORMONE TSH (07/27/2023) Pathologist [facility] TSH 1.080 Default History Genericprovider LABORATORY Edited Result - Final * MAGNESIUM (07/26/2023) MAGNESIUM 1.9 Default History Genericprovider LABORATORY Final Result * LIPID PANEL (07/26/2023) Pathologist [facility] CHOLESTEROL 185 HDL 69 TRIGLYCERIDES 107 LDL (CALCULATED) 95 07/26/2023 Default History Genericprovider LABORATORY Final Result documented in this encounter Visit Diagnoses Not on filedocumented in this encounter Care Teams Syrup Filterer Relationship Specialty Start Date End Date Dawn Cazares MD [address] [place] [address] PCP - General FAMILY PRACTICE 08/12/23 documented as of this encounter
--- OUTSIDE RECORDS SUMMARY | 2024-05-24 16:51 | XMS_ITS | Patient Health Summary ---
Author Organization [facility] Address [address] [facility] [place] [address] Care Team Providers Care Arabic Linguist Name Role Phone Kendy Medrano MD Primary Care Provider [phone] Note from [facility],non-owned Affiliates and Associated Physician Practices is amultiple site organization consisting of ambulatory clinics and hospital sitesin [place], [place], [place] and [place]. This disclosure is being madepursuant to the Care Everywhere program and may not contain all information available regarding this patient. Last updated 18.[facility] Social History Tobacco Use Types Packs/Day Years Used Date Smoking Tobacco: Never Assessed Sex and Gender Information Value Date Recorded Sex Assigned at Not on file Gender Identity Not on file Sexual Orientation Not on file Procedures * DERMATOPATHOLOGY(Performed 07/06/2023) Results * DERMATOPATHOLOGY (07/06/2023 12:00 AM CDT) Case Report Dermatopathology Report ? Case: [id number] ? Authorizing Provider: ??Bryan Palomares MD ?Collected: ? 07/06/2023 12:00 AM ? Ordering Location: ? [facility] - ??Received: ?07/07/2023 06:43 AM ? DermPath Lab ? Pathologist: ? Car Pineda MD ? Specimen: ?Skin, right flank ? 4 3:39 PM CDT DERMATOPATHOLOGY LABORATORY Final Diagnosis Specimen A. SKIN, right flank: SEBORRHEIC KERATOSIS (L82.1) 4 3:39 PM CDT DERMATOPATHOLOGY LABORATORY Clinical History ISK 4 3:39 PM CDT DERMATOPATHOLOGY LABORATORY Gross Description Specimen A: Received is one formalin filled container labeled with the patients name and designated right flank. The specimen consists of a shave removal measuring 5x7x1 mm. Jar 0. 4 3:39 PM CDT DERMATOPATHOLOGY LABORATORY Microscopic Description Specimen A. SKIN, right flank: Sections show an acanthotic lesion composed of relatively uniform keratinocytes. There is hyperkeratosis and pseudo horn cysts formation. 4 3:39 PM CDT DERMATOPATHOLOGY LABORATORY Disclaimer An external and internal positive and negative controls are appropriate for the histochemical, immunohistochemical and immunofluorescence stain(s) in this case (if any), except where stated explicitly. The performance characteristics of the stain(s) cited in this report were developed and its performance characteristic determined by the Dermatopathology Laboratory at [facility], directed by Dr. Ayse Pineda. These tests need not be, and therefore are not, approved by the [place] Food and Drug Administration. The tests are used for clinical purposes. Billing Codes Specimen Charges Stain Charges 72804 1 4 3:39 PM CDT DERMATOPATHOLOGY LABORATORY Embedded Images 4 3:39 PM CDT DERMATOPATHOLOGY LABORATORY Pathology/Cytolog y TISSUE SPECIMEN FROM SKIN / Unknown 07/06/2023 07/07/2023 6:43 AM CDT Bryan Palomares MD LAB - PATHOLOGY/CYTO LOGY ORDERABLES DERMATOPATHOLOGY LABORATORY [facility] - Department of Dermatology [address], [address] [phone] Care Teams Arabic Linguist Relationship Specialty Start Date End Date Kendy Medrano MD [address] [facility] [address] [place] [address] PCP - General 06/16/18
--- OUTSIDE RECORDS SUMMARY | 2024-05-24 16:51 | XMS_ITS | Clinical Summary ---
Author Organization [facility] Address [address] [facility] [place] [address] Care Team Providers Care Fiberglass Dowel Drawing Operator Name Role Phone Kendy Medrano MD Primary Care Provider [phone] Source Comments [facility],non-owned Affiliates and Associated Physician Practices is amultiple site organization consisting of ambulatory clinics and hospital sitesin [place], [place], [place] and [place]. This disclosure is being madepursuant to the Care Everywhere program and may not contain all information available regarding this patient. Last updated 18.[facility] Social History Tobacco Use Types Packs/Day Years Used Date Smoking Tobacco: Never Assessed Sex and Gender Information Value Date Recorded Sex Assigned at Not on file Gender Identity Not on file Sexual Orientation Not on file Plan of Treatment Health Maintenance Due Date Last Done Comments COLOGUARD (AGES 45-75) - COL ON CA SCREENING 1967 COLON MONITORING 1967 COLONOSCOPY - COLON CA SCREENING 1967 CT COLONOGRAPHY - COLON CA SCREENING 1967 Colorectal Cancer Screening 1967 FIT - COLON CA SCREENING 1967 FLEX SIG - COLON CA SCREENING 1967 LIPID TESTING 1967 MAMMOGRAM 1967 PAP SMEAR 1967 HIV SCREENING 09/05/1982 HEPATITIS C SCREENING 09/01/1985 DTAP/TDAP/TD VACCINES (1 - Tdap) 09/05/1986 HEPATITIS B VACCINE (1 of 3 - 19+ 3-dose series) 09/05/1986 PNEUMOCOCCAL VACCINE 50+ (1 of 1 - PCV) 09/05/2017 ZOSTER VACCINE (1 of 2) 09/05/2017 COVID-19 VACCINE (2023-2 5 season) 2023 INFLUENZA VACCINE (#1) 2023 DEPRESSION SCREENING 04/26/2024 HIB VACCINE Aged Out No longer eligi ble based on patient's age to complete this topic HPV VACCINE Aged Out No longer eligi ble based on patient's age to complete this topic MENINGOCOCCAL (Group B) VACCINE Aged Out No longer eligible based on patient's age to complete this topic MENINGOCOCCAL VACCINE Aged Out No darlene ward eligible based on patient's age to complete this topic PNEUMOCOCCAL VACCINE Aged Out No long er eligible based on patient's age to complete this topic Care Teams Fiberglass Dowel Drawing Operator Relationship Specialty Start Date End Date Kendy Medrano MD [address] [facility] [address] [place] [address] PCP - General 06/16/18
--- OUTSIDE RECORDS SUMMARY | 2024-05-24 16:51 | XMS_ITS | Encounter Summary ---
Author Organization [facility] Address [address] [facility] [place] [address] Care Team Providers Care Drill Hand Name Role Phone Kendy Medrano MD Primary Care Provider [phone] Encounter Details Date Type Department Care Team (Late st Contact Info) Description 07/06/2023 Lab Requisition [facility] - DermPath Lab [address] [facility] [place] [id number] Bryan Palomares MD [address] [place] [id number] Social History Tobacco Use Types Packs/Day Years Used Date Smoking Tobacco: Never Assessed Sex and Gender Information Value Date Recorded Sex Assigned at Not on file Gender Identity Not on file Sexual Orientation Not on file documented as of this encounter Plan of Treatment Not on file documented as of this encounter Procedures Procedure Name Priority Date/Time Associated Diagnosis Comments DERMATOPATHOLOGY Routine 07/06/2023 12:0 0 AM CDT documented in this encounter Results * DERMATOPATHOLOGY (07/06/2023 12:00 AM CDT) Case Report Dermatopathology Report ? Case: [id number] ? Authorizing Provider: ??Bryan Palomares MD ?Collected: ? 07/06/2023 12:00 AM ? Ordering Location: ? [facility] - ??Received: ?07/07/2023 06:43 AM [...] characteristic determined by the Dermatopathology Laboratory at [facility], directed by Dr. Ayse Pineda. These tests need not be, and therefore are not, approved by the [place] Food and Drug Administration. The tests are used for clinical purposes. Billing Codes Specimen Charges Stain Charges 55722 1 4 3:39 PM CDT DERMATOPATHOLOGY LABORATORY Embedded Images 4 3:39 PM CDT DERMATOPATHOLOGY LABORATORY Pathology/Cytolog y TISSUE SPECIMEN FROM SKIN / Unknown 07/06/2023 07/07/2023 6:43 AM CDT Bryan Palomares MD LAB - PATHOLOGY/CYTO LOGY ORDERABLES DERMATOPATHOLOGY LABORATORY [facility] - Department of Dermatology [facility] [address] [place] [address], [address] [phone] documented in this encounter Visit Diagnoses Not on filedocumented in this encounter Care Teams Drill Hand Relationship Specialty Start Date End Date Kendy Medrano MD [address] [facility] [address] [place] [address] PCP - General 06/16/18 documented as of this encounter
--- OUTSIDE RECORDS SUMMARY | 2024-05-24 16:51 | XMS_ITS | Clinical Summary ---
Author Organization [facility] Address [address] [place] [address]. [place], [place] [address] [place] [address] Care Team Providers Care Chief Enterprise Architect Name Role Phone Dawn Cazares MD Primary Care Provider [phone] Allergies Active Allergy Reactions Criticality Noted Date Comments Meperidine Hcl Unknown 09/15/2023 Sulfa Antibiotics Unknown 09/15/2023 Medications timolol (TIMOPTIC) 0.25 % ophthalmic solution Place 1 drop into both eyes daily. Active ibuprofen (MOTRIN) 800 MG tablet Take 1 tablet (800 mg total) by mouth 3 (three) times daily as needed. 04/05/2023 Active HYDROcodone-acet aminophen (NORCO) 5-325 MG tablet Take 1 tablet by mouth every 6 (six) hours as needed. Active Active Problems Problem Noted Date Diagnosed Date Anxiety 09/15/2023 Constipation 09/15/2023 Dizziness 09/15/2023 Gastroesophageal reflux disease 09/15/2023 Hyperthyroidism 08/11/2023 Palpitations 07/26/2023 Family History Medical History Relation Comments Atrial fibrillation Brother cva Brother Aneurysm Father brain Atrial fibrillation Father cva Father Heart Disease Mother Hypertension Mother Relation Status Comments Brother Father Mother Social History Tobacco Use Types Packs/Day Years [...] Sign Reading Time Taken Comments Blood Pressure 114/70 09/16/2023 12:08 PM CDT Pulse 80 09/16/2023 12:08 PM CDT Temperature - - Respiratory Rate - - Oxygen Saturation 97% 09/16/2023 12:08 PM CDT Inhaled Oxygen Concentration - - Weight 61.2 kg (135 lb) 09/16/2023 12:08 PM CDT Height 157.5 cm (5' 2 ) 09/16/2023 12:08 PM CDT Body Mass Index 24.69 09/16/2023 12:08 PM CDT Plan of Treatment Health Maintenance Due Date Last Done Comments Cervical Cancer Screening Pap Smear (Age 30 to 64) Every 3 Years 1967 Colorectal Cancer Screening Colonoscopy (10 Years) 1967 Annual Physical 09/05/1970 Hepatitis C 09/05/1985 DTaP, Tdap and Td Vaccines (1 - Tdap) 09/05/1986 Hepatitis B Vaccines (1 of 3 - 19+ 3-dose series) 09/05/1986 Cervical Cancer Screening Pap with HPV Testing (Age 30 to 64) Every 5 Years 09/05/1997 Cervical Cancer Screening with HPV 09/05/1997 Mammogram Screening 2007 Zoster Vaccines (1 of 2) 09/05/2017 COVID-19 Vaccine ( season) 2023 Influenza Adult (#1) 2024 04/07/2022, 02/14/2020, 02/27/2019, Additional history exists Meningococcal B Vaccine Aged Out No l onger eligible based on patient's age to complete this topic Meningococcal Vaccine Aged Out No darlene ward eligible based on patient's age to complete this topic Pneumococcal Vaccine: Pediatrics (0 to 5 Years) and At-Risk Patients (6 to 64 Years) Aged Out No longer eligible based on patient's age to complete this topic RSV Immunizations Under 20 Months Aged Out No longer eligible based on patient's age to complete this topic Insurance [facility] MEDICAID Care Teams Chief Enterprise Architect Relationship Specialty Start Date End Date Dawn Cazares MD [address] [place] [address] [place] [address] PCP - General FAMILY PRACTICE 08/12/23
== END 2024-05-24 16:28 | disposition home or self-care (01) ==
LOC: ANHIMG 16:30
PROVIDERS: PCP Family Medicine; Visit Provider Nurse Practitioner Family
DX: H74.8X2 Other specified disorders of left middle ear and mastoid (principal); J32.9 Chronic sinusitis, unspecified
CPT/HCPCS: 70486

== ENCOUNTER 2024-07-05 09:45 | Outpatient (CLI) | payer MEDICARE, MEDICAID, SELFPAY ==
--- NOTE | ~2024-07-05 | DEXA_ITS ---
Bone Density Report Name: DEANDRE QUINTERO Age: 58 Sex: Female Ethnicity: White Date of : 1965 Indication: postmenopausal; screening for osteoporosis; Referring Provider: JANESSA, ALEXANDRA Tavera Study: Bone densitometry was performed. Exam Date: July 05, 2024 Accession number: [id number] Bone Density: Region BMD T-score Z-score Classification AP Spine(L1-L4) 0.999 -0.4 0.8 Normal Femoral Neck (Left) 0.663 -1.7 -0.5 Osteopenia Total Hip (Left) 0.852 -0.7 0.0 Normal Femoral Neck (Right) 0.625 -2.0 -0.9 Osteopenia Total Hip (Right) 0.838 -0.9 -0.1 Normal Total Hip Mean 0.845 -0.8 -0.1 Normal World Health Organization criteria for BMD impression classify patients as: Normal (T-score at or above -1.0), Osteopenia (T-score between -1.0 and -2.5), or Osteoporosis (T-score at or below -2.5). 10-year Fracture Risk(1): Major Osteoporotic Fracture 8.3% Hip Fracture 0.9% Reported Risk Factors: [place] (), Neck BMD=0.625, BMI=25.2 (1) FRAX(R) Version 3.08. Fracture probability calculated for an untreated patient. Fracture probability may be lower if the patient has received treatment. Clinical Information Provided by Patient: Has used the following medications: Vitamin D Patient maximum height was 62 Menopause Age: 56 No regular weight bearing exercise Does not regularly consume dairy products Onset of menses at age 14 Number of children 2 Impression: The patient has low bone mass, based on the Right Femoral Neck T-score. The patient has an estimated ten-year risk of hip fracture of 0.9% and an estimated ten-year risk of major fracture of 8.3%, based on the WHO FRAX algorithm. Discussion: BONE DENSITY IS LOW AT ONE OR MORE SKELETAL SITES. This patient's lowest T-score is low at one or more skeletal sites. It meets the World Health Organization's (WHO) criteria for ?low bone mass? (T-score between -1.0 and -2.5). The patient's 10-year risk of fracture as calculated by FRAX is less than the threshold where pharmacological therapy is recommended by the National Osteoporosis Foundation (NOF). However, all treatment decisions require clinical judgment and consideration of individual patient factors, including patient preferences, comorbidities, previous drug use, risk factors not captured in the FRAX model (e.g., frailty, falls, vitamin D deficiency, increased bone turnover, interval significant decline in bone density) and possible under or overestimation of fracture risk by FRAX. The patient should follow a healthful lifestyle (good nutrition with adequate calcium and vitamin D, and appropriate weight-bearing exercise). Follow-Up: Consider repeating this study in 2 to 3 years to reassess this patient's status, or sooner if there is some new clinical indication. Reported by: DANIEL on 07/05/2024 10:24:00 AM. Reviewed, dictated and finalized at location [facility]
== END 2024-07-05 09:46 | disposition home or self-care (01) ==
LOC: ANHIMG 09:57
PROVIDERS: PCP Family Medicine; Visit Provider Nurse Practitioner Family
DX: M85.89 Other specified disorders of bone density and structure, multiple sites (principal); Z13.820 Encounter for screening for osteoporosis
CPT/HCPCS: 77080

== ENCOUNTER 2024-11-16 08:15 | Emergency (ER) | payer MEDICARE, MEDICAID, SELFPAY ==
--- NOTE | 2024-11-16 08:19 | ED_ITS ---
HPI - URI/Sore Throat General Chief Complaint: Upper Respiratory Infection Stated Complaint: Cough Time Seen by Provider: 11/16/24 08:17 Source: patient Mode of arrival: ambulatory Limitations: no limitations History of Present Illness HPI Narrative: Patient is a 59-year-old female who presents with cough for 3 days. States her son was here last week with same illness. Reports all her other symptoms have resolved but the cough is keeping her up at night. Denies any fever chills, nausea, vomiting, diarrhea. Patient has history of chronic sinusitis Related Data Home Medications ?Medication ?Instructions ?Recorded ?Confirmed ?Last Taken ?Type estradiol 1 mg tablet 1 mg PO DAILY 11/08/24 11/08/24 Unknown History multivitamin with iron (Daily 1 tablet PO DAILY 11/08/24 11/08/24 Unknown History Vitamin with Iron tablet) progesterone 50 mg/mL 50 mg IM 11/08/24 11/08/24 Unknown History intramuscular oil testosterone enanthate 200 mg/mL 200 mg IM ONCE 11/08/24 11/08/24 Unknown History intramuscular oil azelastine 0.05 % eye drops drp 11/16/24 Unknown History azelastine 137 mcg (0.1 %) nasal intranasal 11/16/24 Unknown History spray dorzolamide 22.3 mg-timolol 6.8 11/16/24 Unknown History mg/mL eye drops timolol maleate 0.5 % eye drops drp 11/16/24 Unknown History Allergies Allergy/AdvReac Type Severity Reaction Status Date / Time Sulfa (Sulfonamide Allergy Severe RASH Verified 11/16/24 08:23 Antibiotics) meperidine AdvReac Severe LOW BP Verified 11/16/24 08:23 RAGWEED Allergy Mild ITCHY, Uncoded 11/16/24 08:23 SNEEZY, CONGESTED Review of Systems Review of Systems: All systems reviewed & are unremarkable except as noted in HPI and below Constitutional: Constitutional: Denies chills, Denies fatigue, Denies fever(s), Denies headache(s), Denies malaise and Denies weakness Eyes: Eyes: Denies blurry vision, Denies itchy eyes and Denies loss of vision ENT: Denies otalgia, Denies headache(s), Denies nasal congestion, Denies sinus pain and Denies sore throat Cardiovascular: Cardiovascular: Denies chest pain, Denies irregular heart rhythm and Denies dyspnea Respiratory: Respiratory: Reports cough and Denies dyspnea Gastrointestinal: Gastrointestinal: Denies abdominal pain, Denies diarrhea, Denies nausea and Denies vomiting Musculoskeletal: Musculoskeletal: Denies back pain, Denies myalgias and Denies arthralgias Integumentary/Breasts: Skin/Breast: Denies pruritus and Denies rash Neurologic: Denies headache(s), Denies loss of vision and Denies weakness Psychiatric: Psychiatric: Reports no additional psychiatric complaints Endocrine: Endocrine: Denies fatigue Allergic/Immunologic: Allergic/Immunologic: Denies itchy eyes PMFSH Past Medical History Medical History Bloating Dysphagia Migraines Surgical History Surgical History History of tonsillectomy History of tubal ligation Family History Family History Father Cerebrovascular accident Sibling Cerebrovascular accident Social History Social History Smoking status: Never smoker Alcohol intake: never Substance use: never Substance use type: does not use Lack of Transportation: No Lack of Food: Never True Current Housing: I Have Housing Concerned About Future Housing: No Difficulty Paying Gas/Electric Bills: No Difficulty Paying for Meds: No Currently Unemployed: No Education: High School Diploma/GED Living arrangements: with family Occupation/Education: occupation 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 There is no relevant family history pertinent to the presenting complaint. Exam Const: General: cooperative, healthy appearing, comfortable, no acute distress and well nourished Nutritional Appearance: well nourished Orientation/consciousness: patient oriented x3 Limitations: no limitations HENMT: Head: normal to inspection, normocephalic and atraumatic Ears: hearing grossly normal bilaterally, external ears normal, TM's normal bilaterally, no periauricular adenopathy and Abnormal EAC present excessive cerumen on the left Face/Nose/Sinus: Normal external nose present, Normal nasal mucous membranes and turbinates present, normal facial exam, sinuses nontender and face symmetric Face and sinus: normal facial exam, sinuses nontender and face symmetric Mouth: Yes Normal oral and palatal mucosa present, Yes lip normal, Yes tongue normal, Yes Normal salivary glands and ducts present, Yes oropharynx normal and Yes moist mucous membranes Teeth and gingiva: dentition normal Throat: posterior oropharynx normal, tonsils normal and uvula midline Eyes: General: appearance normal, both eyes and all related structures Alignment and Position: alignment normal and position normal Periorbital: periorbital findings normal Eyelids: eyelids normal Pupils: Equal, round and reactive pupils present Neck: Neck: normal visual inspection, full ROM, no lymphadenopathy and supple Chest: Chest palpation & inspection: normal inspection of the chest and normal palpation of entire chest wall Resp: Effort & Inspection: normal respiratory effort and able to speak in complete sentences Auscultation: clear to auscultation bilaterally, no crackles, no rales, no rhonchi and no wheezes Cardio: Rate: regular rate Rhythm: regular rhythm Heart sounds: S1 normal heart sound present and S2 normal heart sound present GI: Inspection: normal to inspection Skin: General skin exam: normal color and no rashes or lesions noted Neuro: General: patient oriented x3 and moves all extremities Cranial nerves: Yes Equal, round and reactive pupils present Speech: normal speech Gait exam (Neuro): Normal gait present Extrem: General: normal to inspection, full ROM and no edema Psych: Appearance: grossly normal and well kempt Mental Status: mental status grossly normal Speech and movement: Normal speech and movement present Affect: normal affect Attitude: cooperative Thought process: Normal thought process present Course Course Emergency Course: Discharge instructions reviewed with patient, as well as provided in writing per nursing staff. The instructions also include specific and strict return/GO TO THE ER as well as f/u information. All questions have been answered, and the patient deny any further questions with discharge and discharge plan. Portions of this record may have been created with voice recognition software Level of Care: Express Care Visit Vital Signs Vital signs: Reviewed MDM - URI/Sore Throat MDM Narrative Medical decision making narrative: Pt well hydrated appearing, in no respiratory distress, hemodynamically stable. Recommend supportive care. The patient is stable at time of discharge the clinical impression was discussed and the patient was given the opportunity to ask questions, which were addressed as completely as possible given the inform ation available at present. Anticipatory guidance and return to care precautions were discussed and the importance of primary care follow-up was stressed and encouraged. The patient voiced understanding of the plan, indications to return, and the need for follow-up. Exam findings show no acute concerns or changes Patient is appropriate for outpatient treatment and follow-up. Differential diagnosis considered: Islas virus, strep pharyngitis, allergic rhinitis, upper respiratory tract infection, sinusitis, rhinosinusitis, nasopharyngitis. viral pharyngitis, otitis media, otitis externa, otitis effusion, foreign body, cerumen impaction, viral syndrome, and influenza.? Medical Records Attestation: I reviewed the patient's medical records. Discharge Plan Discharge Clinical Impression: Upper respiratory infection, viral Cough Qualifiers: Cough type: acute Qualified Code(s): R05.1 - Acute cough Patient Disposition: Home Condition: Stable Instructions: Upper Respiratory Infection (ED) Additional Instructions: Use Tessalon Perles for cough Your symptoms are likely due to a viral illness, which is not treated with antibiotics. Viral symptoms can be present for up to a few weeks. -For pain/fever, you may take: Tylenol 650-1000mg by mouth every 4-6 hours. Do not exceed 4000mg in 24 hours. Advil (Ibuprofen) 600 mg by mouth every 6 hours. Do not exceed 2400mg in 24 hours. 8 AM: Tylenol 11 AM: Ibuprofen 2 PM: Tylenol 5 PM: Ibuprofen 8 PM: Tylenol 11 PM: Ibuprofen 2 AM: Tylenol 5 AM: Ibuprofen -Eat and drink things that are easy to swallow, like tea or soup, or popsicles. -Oral rinses such as: Salt water gargles and/or may use topical anesthetic (eg. Chloraseptic spray) or lozenges to relieve dryness or throat pain). -Frequent hand washing or hand comprehensive ophthalmologist is one of the best ways to prevent spread of infection. -Using a vaporizer or humidifier at night will also help thin secretions and help with coughing up phlegm. Call your Primary Care Doctor and make a follow-up appointment in 3 days. If your cough worsens, you develop a fever greater than 103, you develop shaking chills, a fast heartbeat, trouble breathing and/or feel you are are breathing much faster than usual, call your Primary Care Doctor or go to the ER. Patient Language: Zambian Prescriptions: New benzonatate 100 mg capsule 100 mg PO BID PRN (Reason: cough) Qty: 14 0RF No Action azelastine 0.05 % drops dorzolamide-timolol 22.3-6.8 mg/mL drops azelastine 137 mcg (0.1 %) spray,non-aerosol INTRANASAL timolol maleate 0.5 % drops estradiol 1 mg tablet 1 mg PO DAILY Rx Instructions: off 1 week; repeat cycle progesterone 50 mg/mL oil 50 mg IM testosterone enanthate 200 mg/mL oil 200 mg IM ONCE Rx Instructions: as a single dose multivitamin with iron [Daily Vitamin with Iron] Tablet 1 tablet PO DAILY Follow-up/Referrals: Butch,Savanna Arzola, GAS STATION ATTENDANT [Primary Care Provider] - 3 Days Time of Disposition: 08:46
[2024-11-16 08:23] VITALS: BP 123/56; PULSE 79; RESP 16; TEMP 36.7; O2SAT 98
== END 2024-11-16 08:53 | disposition home or self-care (01) ==
PROVIDERS: Emergency Provider Nurse Practitioner Family; PCP Nurse Practitioner Family
DX: J06.9 Acute upper respiratory infection, unspecified (principal); R05.1 Acute cough
CPT/HCPCS: 99213; G0463

== ENCOUNTER 2024-11-29 02:16 | Day surgery (SDC) | payer MEDICARE, MEDICAID, SELFPAY ==
[2024-11-16 14:56] VITALS: BMI 25.4
--- OUTSIDE RECORDS SUMMARY | 2024-11-29 02:23 | XMS_ITS | Clinical Summary ---
Author Organization [facility] Address [address] [facility] [place] [address] Care Team Providers Care Tube Operator Name Role Phone Kedny Medrano MD Primary Care Provider [phone] Source Comments [facility] Affiliates and Associated Physician Practices is amultiple site organization consisting of ambulatory clinics and hospital sitesin [place], [place]. This disclosure is being madepursuant to the Care Everywhere program and may not contain all information available regarding this patient. 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 Gender Identity Not on file Sexual Orientation [...] SCREENING 1965 LIPID TESTING 1965 MAMMOGRAM 1965 HIV SCREENING 09/05/1982 HEPATITIS C SCREENING 09/01/1985 DTAP/TDAP/TD VACCINES (1 - Tdap) 09/05/1986 HEPATITIS B VACCINE (1 of 3 - 19+ 3-dose series) 09/05/1986 PAP SMEAR 09/05/1988 PNEUMOCOCCAL VACCINE 50+ (1 of 1 - PCV) 09/05/2017 ZOSTER VACCINE (1 of 2) 09/05/2017 COVID-19 VACCINE (2023-2 5 season) 2023 DEPRESSION SCREENING 04/26/2024 INFLUENZA VACCINE (#1) 2024 HIB VACCINE Aged Out No longer eligi ble based on patient's age to complete this topic HPV VACCINE Aged Out No longer eligi ble based on patient's age to complete this topic MENINGOCOCCAL (Group B) VACC INE SHARED DECISION-MAKING Aged Out No longer eligibl e based on patient's age to complete this topic MENINGOCOCCAL GROUPS A/C/Y/W VACCINE Aged Out No longer eligible b ased on patient's age to complete this topic Insurance [facility] Care Teams Tube Operator Relationship Specialty Start Date End Date Kendy Medrano MD [address] [address] [facility] - General 06/16/18
--- OUTSIDE RECORDS SUMMARY | 2024-11-29 02:23 | XMS_ITS | Encounter Summary ---
Author Organization [facility] Address [address] [place] [address] Care Team Providers Care Child Care Education Coordinator Name Role Phone Kendy Medrano MD Primary Care Provider [phone] Encounter Details Date Type Department Care Team (Late st Contact Info) Description 07/06/2023 Lab Requisition 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 Physician [facility] - Received: 07/07/2023 06:43 AM DermPath Lab Pathologist: Car Pineda MD Specimen: Skin, right flank 03/14/202 4 3:39 PM CDT DERMATOPATHOLOGY LABORATORY Final Diagnosis Specimen A. SKIN, right flank: SEBORRHEIC KERATOSIS (L82.1) 4 3:39 PM CDT DERMATOPATHOLOGY LABORATORY at 1539 CDT Clinical History ISK 4 3:39 PM CDT DERMATOPATHOLOGY LABORATORY Gross Description Specimen A: Received is one formalin filled container labeled with the patients name and designated right flank. The specimen consists of a shave removal measuring 5x7x1 mm. Jar 0. 3:39 PM CDT DERMATOPATHOLOGY LABORATORY Microscopic Description Specimen A. SKIN, right flank: Sections show an acanthotic lesion composed of relatively uniform keratinocytes. There is hyperkeratosis and pseudo horn cysts formation. 3:39 PM CDT DERMATOPATHOLOGY LABORATORY Disclaimer An external and internal positive and negative controls are appropriate for the histochemical, immunohistochemical and immunofluorescence stain(s) in this case (if any), except where stated explicitly. The performance characteristics of the stain(s) cited in this report were developed and its performance characteristic determined by the Dermatopathology Laboratory at [facility], directed by Dr. Ayse Pineda. These tests need not be, and therefore are not, approved by the [place] Food and Drug Administration. The tests are used for clinical purposes. Billing Codes Specimen Charges Stain Charges 00567 1 3:39 PM CDT DERMATOPATHOLOGY LABORATORY Embedded Images 3:39 PM CDT DERMATOPATHOLOGY LABORATORY Pathology/Cytolog y TISSUE SPECIMEN FROM SKIN / Unknown 07/06/2023 07/07/2023 6:43 AM CDT Bryan Palomares MD LAB - PATHOLOGY/CYTOLOGY ORDERAB LES Final Result DERMATOPATHOLOGY LABORATORY [facility] - Department of Dermatology [facility] Medicine [address] [place] [address], [address] [phone] documented in this encounter Visit Diagnoses Not on filedocumented in this encounter Care Teams Child Care Education Coordinator Relationship Specialty Start Date End Date Kendy Medrano MD [address] [address] PCP - General 06/16/18 documented as of this encounter
--- OUTSIDE RECORDS SUMMARY | 2024-11-29 02:23 | XMS_ITS | Continuity of Care Document ---
Author Organization [facility] Address [address] [place] [address] [address] [place] [address] Phone Care Team Providers Care Guidance Consultant Name Role Phone Amor OD, Roberto Unavailable Unavailable Procedures Procedure Date Office/outpatient Visit, Est Close Tear Duct Opening Eye Exam, New Patient Advance Directives Directive Yes / No Effective Date File Name No Information Encounters Encounter Description Practice Location Reason(s) For Visit Diagnoses Date Provider Providers Copied on Encounter Office/outpat ient Visit, Est [facility], [address] [place] [address] [address], [place], [place], [id number], [place] tel:[phone] [facility] No Information [address] Amor OD Roberto. [address] , [address], [place], [place], [facility], [place]. tel:[phone] [facility], [address] [place] [address] [address], [place], [place], [id number], tel:[phone] [facility] No Information 1 [address] Calvin Diana. [address] , [address], [place], [address], [place]. tel:[phone] Family History Family Member Type Diagnosis Age At Onset No Information Payers Payer name Insurance type Covered libertarian ID Mao ham(s) Medicaid [facility] [id number] Social History Type Description Quantity Date Captured [...]
--- OUTSIDE RECORDS SUMMARY | 2024-11-29 02:23 | XMS_ITS | Encounter Summary ---
Author Organization [facility] Address [facility] [place] [address] Care Team Providers Care Ceramic Chemist Name Role Phone Dawn Cazares MD Primary Care Provider [phone] Encounter Details Date Type Department Care Team (Late st Contact Info) Description 09/16/2023 Abstract [facility] [facility], [address] [address] Fauzia Brannon MA Social History Tobacco Use [...] * THYROID STIM HORMONE TSH (07/27/2023) Pathologist [facility] TSH 1.080 us Default History Genericprovider LABORATORY Edited Result - Final * MAGNESIUM (07/26/2023) Pathologist [facility] MAGNESIUM 1.9 us Default History Genericprovider LABORATORY Final Result * LIPID PANEL (07/26/2023) Pathologist [facility] CHOLESTEROL 185 HDL 69 TRIGLYCERIDES 107 LDL (CALCULATED) 95 07/26/2023 us Default History Genericprovider LABORATORY Final Result documented in this encounter Visit Diagnoses Not on filedocumented in this encounter Care Teams Ceramic Chemist Relationship Specialty Start Date End Date Dawn Cazares MD [address] [place] [address] PCP - General FAMILY PRACTICE 08/12/23 documented as of this encounter
--- OUTSIDE RECORDS SUMMARY | 2024-11-29 02:23 | XMS_ITS | Clinical Summary ---
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 Gender Identity Not on file Sexual Orientation Not on file Last Filed Vital Signs Vital Sign Reading Time Taken Comments Blood Pressure 124/76 10/20/2023 1:28 PM CDT Pulse 70 10/20/2023 1:28 PM CDT Temperature 36.1 C (97 F) 10/20/2023 1:28 PM CDT Respiratory Rate 20 10/20/2023 1:28 PM CDT Oxygen Saturation 97% 10/20/2023 1:28 PM CDT Inhaled Oxygen Concentration - - Weight 62.1 kg (137 lb) 10/20/2023 1:28 PM CDT Height - - Body Mass Index - - Plan of Treatment Health Maintenance Due Date Last Done Comments Hepatitis C Virus (HCV) Screening 1965 Mammogram 1965 TdaP Immunization 1965 Hepatitis B Immunization (1 of 3 - 19+ 3-dose series) 09/05/1986 Pap Smear 09/05/1988 Cervical Cancer Screening (CCS) 09/05/1997 HPV/Cotest 09/05/1997 Cologuard 09/05/2012 Immunochemical Fecal Occult Blood 09/05/2012 Pneumococcal Immunization (50+ years) (1 of 1 - PCV) 09/05/2017 Zoster Immunization (1 of 2) 09/05/2017 SARS-COV-2 Immunization (1 - 2023- season) 2023 Influenza Immunization (#1) 12/25/202403/26, 02/14/2020, 02/27/2019, Additional history exists Colonoscopy 11/26/2026 11/26/2016 Colorectal Cancer Screening 11/26/2026 Respiratory Syncytial Virus (RSV) Immunization (Adult) (1 - 1-dose 75+ series) 09/05/2042 Human Papillomavirus (HPV) Immunization Aged Out No longer eligible based on patient's age to complete this topic Meningococcal Immunization (ACWY) Aged Out No longer eligible based on patient's age to complete this topic Rotavirus Immunization Aged Out No lo nger eligible based on patient's age to complete this topic Procedures Procedure Name Priority Date/Time Associated Diagnosis Comments COLONOSCOPY Routine 11/26/2016 from Last 3 Months or Most Recently Relevant to Health Maintenance Results * COLONOSCOPY (11/26/2016) Kendy Medrano MD PROCEDURE/MINOR SURGIC AL ORDERABLES Final Result from Last 3 Months or Most Recently Relevant to Health Maintenance Insurance MEDICARE C HU[place] Care Teams Business Continuity Planner Relationship Specialty Start Date End Date Dawn Cazares MD [address] [place] [address] [place] [address] PCP - General Family Medicine 11/27/16 Kendy Medrano MD [address] [address] Obstetrics & Gynecology 06/11/16 Roberto Garcia DO [address] [place] [address] Gastroenterology 11/27/16 Sanna Vieyra MD [address] [phone] Consulting Physician Endocrinology 10/15/23
--- OUTSIDE RECORDS SUMMARY | 2024-11-29 02:23 | XMS_ITS | Clinical Summary ---
Author Organization [facility] Address [facility] [place] [address] Care Team Providers Care Specialty Sales Consultant Name Role Phone Dawn Cazares MD Primary Care Provider [phone] Allergies Active Allergy Reactions Criticality Noted Date [...] 12:08 PM CDT Height 157.5 cm (5' 2) 09/16/2023 12:08 PM CDT Body Mass Index 24.69 09/16/2023 12:08 PM CDT Plan of Treatment Health Maintenance Due Date Last Done Comments Cervical Cancer Screening Pa p Smear (Age 30 to 64) Every 3 Years 1965 Colorectal Cancer Screening Colonoscopy (10 Years) 1967 Annual Physical 09/05/1970 Hepatitis C 09/05/1985 DTaP, Tdap and Td Vaccines ( 1 - Tdap) 09/05/1986 Hepatitis B Vaccines (1 of 3 - 19+ 3-dose series) 09/05/1986 Cervical Cancer Screening Pa p with HPV Testing (Age 30 to 64) Every 5 Years 09/05/1997 Cervical Cancer Screening with HPV 09/05/1997 Mammogram Screening 2007 Pneumococcal Vaccine: 50+ Ye ars (1 of 1 - PCV) 09/05/2017 Zoster Vaccines (1 of 2) 09/05/2017 COVID-19 Vaccine ( - 2023-2 5 season) 2023 Meningococcal B Vaccine Aged Out No l onger eligible based on patient's age to complete this topic Meningococcal Vaccine Aged Out No darlene ward eligible based on patient's age to complete this topic RSV Immunizations Under 20 Months Aged Out No longer eligible based on patient's age to complete this topic Insurance HUMANA Member Subscriber Plan / Payer (Ef fective 2020-Present) Name:Carmen Escamilla Relation to Subscriber:Self Name:Carmen Escamilla Payer ID:[id number] (NAIC) Type:Not on file Address: [place] [id number] MEDICAID Care Teams Specialty Sales Consultant Relationship Specialty Start Date End Date Dawn Cazares MD [address] [place] [address] [place] [address] PCP - General FAMILY PRACTICE 08/12/23
[2024-11-29 12:10] VITALS: BP 131/70; PULSE 65; RESP 16; TEMP 37; O2SAT 100; BMI 25.1
[2024-11-29] MEDS: LACTATED RINGERS 1,000 ML 150 ML IV CONT (12:27)
--- NOTE | 2024-11-29 12:57 | P.PNAN_ITS ---
Anes - Initial Pre Proc Eval Procedure: Operation Date: 11/29/24 13:30 Proposed Procedures p Esophagogastroduodenoscopy - Temo Armenta MD Date/Time: 11/29/24 12:57 Surgeon: eTmo Armenta MD Pre Op Diagnosis: Gastro-esophageal reflux disease without esophagit Patient Data Age: 59 Gender: F Height: 1.57 m Weight: 62.4 kg Last Vital Signs Temp 37.0 C 11/29/24 12:10 Pulse 65 11/29/24 12:10 Resp 16 11/29/24 12:10 BP 131/70 11/29/24 12:10 Pulse Ox 100 11/29/24 12:10 O2 Del Method Room Air 11/29/24 12:10 Allergies Allergy/AdvReac Type Severity Reaction Status Date / Time Sulfa (Sulfonamide Allergy Severe RASH Verified 11/29/24 12:15 Antibiotics) meperidine AdvReac Severe LOW BP Verified 11/29/24 12:15 RAGWEED Allergy Mild ITCHY, Uncoded 11/29/24 12:15 SNEEZY, CONGESTED Home Medications ?Medication ?Instructions ?Recorded ?Confirmed ?Type estradiol 1 mg tablet 2 mg PO DAILY 11/08/24 11/29/24 History multivitamin with iron (Daily 1 tablet PO DAILY 11/08/24 11/29/24 History Vitamin with Iron tablet) azelastine 0.05 % eye drops 1 drp EACH EYE BID 11/16/24 11/29/24 History azelastine 137 mcg (0.1 %) nasal 2 spray intranasal Q12H 11/16/24 11/29/24 History spray benzonatate 100 mg capsule 100 mg PO BID PRN cough #14 caps 11/16/24 11/16/24 Rx dorzolamide 22.3 mg-timolol 6.8 1 drp RIGHT EYE Q12H 11/16/24 11/29/24 History mg/mL eye drops progesterone micronized 200 mg 200 mg PO HS 11/16/24 11/29/24 History capsule testosterone 1 % (50 mg/5 gram) 1 packet transdermal DAILY 11/16/24 11/29/24 History transdermal gel packet (AndroGel) Patient hx anesthesia problems: none Family hx anesthesia problems: none Results Review: All pre-operative results and documents have been reviewed as part of the pre- operative evaluation. PMFSH Past Medical History Medical History Bloating Dysphagia Migraines Surgical History Surgical History History of tonsillectomy History of tubal ligation Family History Family History Father Cerebrovascular accident Sibling Cerebrovascular accident Social History Social History Smoking status: Never smoker Alcohol intake: never Substance use: never Substance use type: does not use Lack of Transportation: No Lack of Food: Never True Current Housing: I Have Housing Concerned About Future Housing: No Difficulty Paying Gas/Electric Bills: No Difficulty Paying for Meds: No Currently Unemployed: No Education: High School Diploma/GED Living arrangements: with family Occupation/Education: occupation 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 Gender identity (if verbalized by the patient): Female Sexual Orientation (if Verbalized by the Patient): Straight or Heterosexual Anes - Eval Final PreProcedure Day of Procedure 11/29/24 12:57 Patient weight: overweight Heart: regular rate and rhythm Lungs: clear to auscultation Airway: Mallampati scale class II Neurological: alert and oriented Last oral intake: >/= 8 hours ASA classification: II Emergent: no Anesthetic plan: proceed Anesthesia type and monitoring: general GIVS and standard monitoring Results Review: All pre-operative results and documents have been reviewed as part of the pre- operative evaluation. Informed Consent: The patient's anesthetic plan and its attendant risks and benefits were discussed with the patient/family/POA. Questions were solicited and answers provided to the satisfaction of the patient/family/POA.
--- NOTE | 2024-11-29 13:18 | PM.IMHP ---
H&P: HPI History of Present Illness Date/Time: 11/29/24 13:18 Chief Complaint: Dysphagia Narrative: the patient has approximately 6 months with intermittent dysphagia exclusively solids. She has been referred for EGD. Differential diagnosis includes mainly Schatzki ring versus eosinophilic esophagitis. Review of Systems Review of Systems: All systems reviewed & are unremarkable except as noted in HPI and below PMFSH Past Medical History Medical History Bloating Dysphagia Migraines Surgical History Surgical History History of tonsillectomy History of tubal ligation Family History Family History Father Cerebrovascular accident Sibling Cerebrovascular accident Social History Social History Smoking status: Never smoker Alcohol intake: never Substance use: never Substance use type: does not use Lack of Transportation: No Lack of Food: Never True Current Housing: I Have Housing Concerned About Future Housing: No Difficulty Paying Gas/Electric Bills: No Difficulty Paying for Meds: No Currently Unemployed: No Education: High School Diploma/GED Living arrangements: with family Occupation/Education: occupation 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 Gender identity (if verbalized by the patient): Female Sexual Orientation (if Verbalized by the Patient): Straight or Heterosexual Meds Home Medications and Allergies Home Medications ?Medication ?Instructions ?Recorded ?Confirmed ?Type estradiol 1 mg tablet 2 mg PO DAILY 11/08/24 11/29/24 History multivitamin with iron (Daily 1 tablet PO DAILY 11/08/24 11/29/24 History Vitamin with Iron tablet) azelastine 0.05 % eye drops 1 drp EACH EYE BID 11/16/24 11/29/24 History azelastine 137 mcg (0.1 %) nasal 2 spray intranasal Q12H 11/16/24 11/29/24 History spray benzonatate 100 mg capsule 100 mg PO BID PRN cough #14 caps 11/16/24 11/16/24 Rx dorzolamide 22.3 mg-timolol 6.8 1 drp RIGHT EYE Q12H 11/16/24 11/29/24 History mg/mL eye drops progesterone micronized 200 mg 200 mg PO HS 11/16/24 11/29/24 History capsule testosterone 1 % (50 mg/5 gram) 1 packet transdermal DAILY 11/16/24 11/29/24 History transdermal gel packet (AndroGel) Allergies Allergy/AdvReac Type Severity Reaction Status Date / Time Sulfa (Sulfonamide Allergy Severe RASH Verified 11/29/24 12:15 Antibiotics) meperidine AdvReac Severe LOW BP Verified 11/29/24 12:15 RAGWEED Allergy Mild ITCHY, Uncoded 11/29/24 12:15 SNEEZY, CONGESTED Vital Signs Vital Signs - 24 hr 11/29/24 12:10 Temperature 98.6 F Pulse Rate 65 Respiratory Rate 16 Blood Pressure 131/70 Pulse Oximetry 100 Oxygen Delivery Room Air Exam Const: General: cooperative and healthy appearing Resp: Effort & Inspection: normal respiratory effort and able to speak in complete sentences Auscultation: clear to auscultation bilaterally Cardio: Rate: regular rate Rhythm: regular rhythm GI: Inspection: normal to inspection GI Palp: No No hepatosplenomegaly present Auscultation: normal bowel sounds Rectal Exam: deferred Skin: General skin exam: normal color Psych: Appearance: grossly normal Mental Status: mental status grossly normal Assessment and Plan Assessment and plan (1) Dysphagia: Code(s): R13.10 - Dysphagia, unspecified Status: Acute Assessment and Plan: The patient is deemed a good candidate for the procedure. Consent signed. Will proceed.
--- NOTE | 2024-11-29 13:39 | S_PTH ---
PATIENT: Carmen Escamilla LOC: [facility]#:[id number] AGE/SX: 59/F ROOM: RE11/29/[address]: Temo Armenta MD : 1965 BED: DIS: 11/29/2024 SPEC #: [id number] RECD: 11/29/24 14:27 STATUS: PHIL REVanesa #: [id number] ZEB: 11/29/24 13:[address]: Temo Armenta DEPT: [facility] Surgical RECD BY: Bella Hewitt ENTERED: 11/29/24 14:28 SP TYPE: Surgical OTHR DR: Savanna Rae, WATERWORKS CHIEF ENGINEER Tissues: A - Gastric Biopsy B - Gastric Biopsy C - Esophageal Biopsy Procedures: Hematoxylin and Eosin Stain Gross and Microscopic Level 4
[2024-11-29 13:43] VITALS: BP 99/54; PULSE 75; RESP 18; O2SAT 94
[2024-11-29 13:53] VITALS: BP 93/54; PULSE 68; RESP 17; O2SAT 97
[2024-11-29 14:03] VITALS: BP 106/65; PULSE 70; RESP 17; O2SAT 99
== END 2024-11-29 14:13 | disposition home or self-care (01) ==
PROVIDERS: PCP Nurse Practitioner Family; Referring Provider Nurse Practitioner Family; Visit Provider Internal Medicine Gastroenterology
PROC: 0DJ08ZZ Inspection of Upper Intestinal Tract, Via Natural or Artificial Opening Endoscopic (ICD-10-PCS; CPT 43249; principal; 2024-11-29 13:30)
DX: K22.2 Esophageal obstruction (principal); K29.50 Unspecified chronic gastritis without bleeding; B96.81 Helicobacter pylori [H. pylori] as the cause of diseases classified elsewhere
CPT/HCPCS: 43249; 43239; 88305; C1726; J2704; J7120

== ENCOUNTER 2024-12-20 07:52 | Emergency (ER) | payer MEDICARE, MEDICAID, SELFPAY ==
--- OUTSIDE RECORDS SUMMARY | 2007-06-17 03:04 | XMS_ITS | Continuity of Care Document ---
Author Organization [facility] Address [address] [place] [address] [address] [place] [address] Phone Care Team Providers Care Military Source Operations Officer Name Role Phone Amor OD, Roberto Unavailable Unavailable Procedures Procedure Date Office/outpatient Visit, Est Close Tear Duct Opening Eye Exam, New Patient Advance Directives Directive Yes / No Effective Date File Name No Information Encounters Encounter Description Practice Location Reason(s) For Visit Diagnoses Date Provider Providers Copied on Encounter Office/outpat ient Visit, Est [facility], [address] [place] [address] [address], [place], [place], [id number], [place] tel:[phone] [facility] No Information 2200 8 Amor OD Roberto. [address] , [address], [place], [place], [facility], [place]. tel:[phone] [facility], [address] [place] [address] [address], [place], [place], [id number], tel:[phone] [facility] No Information [address] Calvin Diana. [address] , [address], [place], [address], [place]. tel:[phone] Family History Family Member Type Diagnosis Age At Onset No Information Payers Payer name Insurance type Covered libertarian ID Mao ham(s) Medicaid [facility] [id number] Social History Type Description Quantity Date Captured [...]
--- OUTSIDE RECORDS SUMMARY | 2024-12-20 07:55 | XMS_ITS | Clinical Summary ---
Author Organization [facility] Address [address] [place] [address] Care Team Providers Care Vice Investigator Name Role Phone Kendy Medrano MD Primary Care Provider [phone] Source Comments [facility],non-owned Affiliates and Associated Physician Practices is amultiple site organization consisting of ambulatory clinics and hospital sitesin [place], [place], [place] and [place]. This disclosure is being madepursuant to the Care Everywhere program and may not contain all information available regarding this patient. 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 Gender Identity Not on file Sexual Orientation [...] VACCINE (1 of 2) 09/05/2017 COVID-19 VACCINE (1 - 2023-2 5 season) 2023 DEPRESSION SCREENING 04/26/2024 INFLUENZA [...] patient's age to complete this topic Insurance [facility] HUMANA HU[place]NA MEDICAID [place] SELF PAY NO INSURANCE Member Subscriber Plan / Payer (Ef fective for All Dates) Name:Carmen Escamilla Member ID:Not on file Relation to Subscriber:Not on file Name:CARMEN ESCAMILLA Subscriber ID:Not on file (Home) Address: [address] [place] [id number] Payer ID:Not on file Group ID:Not on file Type:Self Pay Address: [place], [place] Care Teams Vice Investigator Relationship Specialty Start Date End Date Kendy Medrano MD [address] [place] [address] PCP - General 06/16/18
--- OUTSIDE RECORDS SUMMARY | 2024-12-20 07:55 | XMS_ITS | Encounter Summary ---
Author Organization [facility] Address [address] [place] [address] Care Team Providers Care Mandarin Tutor Name Role Phone Kendy eMdrano MD Primary Care Provider [phone] Encounter Details Date Type Department Care Team (Late st Contact Info) Description 07/06/2023 Lab Requisition [facility] - DermPath Lab [address] [place] [id number] Bryan Palomares MD [address] [place] [address] Social History Tobacco Use Types Packs/Day Years Used Date Smoking Tobacco: Never Assessed Comments Unknown Sex and Gender Information Value Date Recorded Sex Assigned at Not on file 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 Gender Identity Not on file Sexual Orientation Not on file documented as of this encounter Plan of Treatment Not on file documented as of this encounter Procedures Procedure Name Priority Date/Time Associated Diagnosis Comments DERMATOPATHOLOGY Routine 07/06/2023 12:0 0 AM CDT documented in this encounter Results * DERMATOPATHOLOGY (07/06/2023 12:00 AM CDT) Case Report Dermatopathology Report Case: [id number] Authorizing Provider: Bryan Palomares MD Collected: 07/06/2023 12:00 AM Ordering Location: [facility] Physician [facility] - Received: 07/07/2023 06:43 AM DermPath Lab Pathologist: Car Pineda MD Specimen: Skin, right flank 4 3:39 PM CDT DERMATOPATHOLOGY LABORATORY Final [...] characteristic determined by the Dermatopathology Laboratory at [facility], directed by Dr. Ayse Pineda. These tests need not be, and therefore are not, approved by the [place] Food and Drug Administration. The tests are used for clinical purposes. Billing Codes Specimen Charges Stain Charges 31035 1 4 3:39 PM CDT DERMATOPATHOLOGY LABORATORY Embedded Images 4 3:39 PM CDT DERMATOPATHOLOGY LABORATORY Pathology/Cytolog y TISSUE SPECIMEN FROM SKIN / Unknown 07/06/2023 07/07/2023 6:43 AM CDT us Bryan Palomares MD LAB - PATHOLOGY/CYTOLOGY ORDERAB LES Final Result DERMATOPATHOLOGY LABORATORY [facility] - Department of Dermatology [address], [address] [phone] documented in this encounter Visit Diagnoses Not on filedocumented in this encounter Care Teams Mandarin Tutor Relationship Specialty Start Date End Date Kendy Medrano MD [address] [id number] PCP - General 06/16/18 documented as of this encounter
--- OUTSIDE RECORDS SUMMARY | 2024-12-20 07:55 | XMS_ITS | Clinical Summary ---
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
[2024-12-20 08:08] VITALS: BP 128/62; PULSE 78; RESP 19; O2SAT 99
--- NOTE | 2024-12-20 08:14 | ED_ITS ---
HPI - General Adult General Chief complaint: Nausea/Vomiting/Diarrhea Stated complaint: reactions to new meds? Time Seen by Provider: 12/20/24 08:07 History of Present Illness HPI narrative: This is a 59-year-old female with history of anxiety, H pylori currently on Flagyl and tetracycline and pantoprazole who presents to ED for concerns for reaction to her new medications. Patient states that about a week and half ago she was started on these antibiotics for H pylori. She states that she has been having pretty persistent diarrhea despite her probiotics. She has had intermittent nausea but has been able to tolerate liquids and occasionally solids. Denies rashes, chest pain, shortness of breath. She has not taken the medications Wednesday. She left a message with your GI doctors clinic on Wednesday but they have not called back and she has not tried calling them again. Related Data Home Medications ?Medication ?Instructions ?Recorded ?Confirmed ?Last Taken ?Type estradiol 1 mg tablet 2 mg PO DAILY 11/08/2411/2911/28/24 History multivitamin with iron (Daily 1 tablet PO DAILY 11/29/24 11/28/24 History Vitamin with Iron tablet) azelastine 0.05 % eye drops 1 drp EACH EYE BID 5 11/29/24 11/29/24 History azelastine 137 mcg (0.1 %) nasal 2 spray intranasal Q1 2H 11/16/24 11/29/24 11/28/24 History spray dorzolamide 22.3 mg-timolol 6.8 1 drp RIGHT EYE Q12H 0 11/16/24 11/29/24 11/29/24 History mg/mL eye drops progesterone micronized 200 mg 200 mg PO HS 11/16/24 0 11/29/24 11/28/24 History capsule testosterone 1 % (50 mg/5 gram) 1 packet transdermal D AILY 11/16/24 11/29/24 11/28/24 History transdermal gel packet (AndroGel) Allergies Allergy/AdvReac Type Severity Reaction Status Date / Time Sulfa (Sulfonamide Allergy Severe RASH Verified 12/20/24 07:53 Antibiotics) meperidine AdvReac Severe LOW BP Verified 12/20/24 07:53 RAGWEED Allergy Mild ITCHY, Uncoded 12/20/24 07:53 SNEEZY, CONGESTED Review of Systems 2 Review of Systems: Gen.: Denies fevers or chills Eyes: Denies eye pain or visual change ENT: Denies congestion Respiratory: Denies shortness of breath or cough CV: Denies chest pain or palpitations GI: As per HPI denies burning, urgency, frequency or hematuria Musculoskeletal: Denies back pain or muscle pain Neuro: Denies numbness, tingling, weakness or focal weakness Skin: Denies rash Except as documented, all other systems reviewed and negative [facility] Past Medical History Medical History H. pylori infection Bloating Dysphagia Migraines Surgical History Surgical History History of tonsillectomy History of tubal ligation Family History Family History Father Cerebrovascular accident Sibling Cerebrovascular accident Social History Social History Smoking status: Never smoker Alcohol intake: never Substance use: never Substance use type: does not use Lack of Transportation: No Lack of Food: Never True Current Housing: I Have Housing Concerned About Future Housing: No Difficulty Paying Gas/Electric Bills: No Difficulty Paying for Meds: No Currently Unemployed: No Education: High School Diploma/GED Living arrangements: with family Occupation/Education: occupation 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 CARDIOVASCULAR: Regular rate and rhythm without murmurs rubs or gallops. ABDOMINAL: Soft, nontender, nondistended, no rebound or guarding MUSCULOSKELETAl: Moves all extremities. No clubbing, cyanosis or edema. NEURO: Awake and alert. Following commands, speech normal, no focal deficits SKIN:: Warm, dry. No rashes lesions or abrasions PSYCHIATRIC: Normal affect/mood, Course Vital Signs Vital signs: Vital Signs Pulse Rate 78 12/20/24 08:08 Respiratory Rate 19 12/20/24 08:08 Blood Pressure 128/62 12/20/24 08:08 Pulse Oximetry 99 12/20/24 08:08 Oxygen Delivery Room Air 12/20/24 08:08 Temperature 98.5 F 12/20/24 08:17 Pulse Rate 696 H 12/20/24 09:43 Respiratory Rate 20 12/20/24 09:43 Blood Pressure 121/61 12/20/24 09:43 Pulse Oximetry 100 12/20/24 09:43 Oxygen Delivery Room Air 12/20/24 08:08 Medical Decision Making MDM Narrative Medical decision making narrative: 59-year-old female presenting to the ED for diarrhea and nausea since she has started her triple therapy for H pylori. She tried to call her GI doctor's office 2 days ago but had not heard anything prompting her to come to the ED. her initial evaluation, patient was in no acute distress, afebrile, hemodynamically stable. Abdomen is soft nontender. Heart and lungs are clear. CBC and CMP without significant abnormalities. While in the ED, in the clinic did call her back and just advised her to stop taking the medications. If she is having such severe side effects then I do agree with this. Advised follow-up with the GI physician's office for re-evaluation. Patient was agreeable to this plan. Given strict return precautions. Differential Diagnosis Differential Diagnosis: Medication side effect, gastroenteritis, enteritis, Vital Signs Vital Signs: Vital Signs Pulse Rate 78 12/20/24 08:08 Respiratory Rate 19 12/20/24 08:08 Blood Pressure 128/62 12/20/24 08:08 Pulse Oximetry 99 12/20/24 08:08 Oxygen Delivery Room Air 12/20/24 08:08 Temperature 98.5 F 12/20/24 08:17 Pulse Rate 696 H 12/20/24 09:43 Respiratory Rate 20 12/20/24 09:43 Blood Pressure 121/61 12/20/24 09:43 Pulse Oximetry 100 12/20/24 09:43 Oxygen Delivery Room Air 12/20/24 08:08 Lab Data Lab results reviewed: Yes I reviewed the patient's lab results. 12/20/24 08:53 12/20/24 08:29 Labs: Lab Results 12/20/24 12/20/24 12/20/24 Range/Units 08:29 08:34 08:53 WBC 8.0 (4.5-10.0) K/mm3 RBC 4.88 (4.2-5.4) M/mm3 Hgb 14.2 (12.0-15.0) g/dL Hct 43.4 (37.0-47.0) % MCV 88.9 (80-100) fl MCH 29.1 (26-34) pg MCHC 32.7 (32-36) g/dl RDW 13.1 (11.5-14.5) % Plt Count 226 (150-375) k/mm3 MPV 10.4 (7.4-10.4) fl Immature Gran % (Auto) 0.4 (0-0.5) % Neut % (Auto) 77.6 H (45.5-73.1) % Lymph % (Auto) 14.0 L (18.3-44.2) % Davidson % (Auto) 6.9 (2.6-8.5) % Eos % (Auto) 0.2 (0-4.4) % Baso % (Auto) 0.9 (0.2-1.2) % Lymph # (Auto) 1.12 (0.9-3.2) K/mm3 Davidson # (Auto) 0.6 (0.1-0.6) K/mm3 Eos # (Auto) 0.0 (0-0.3) K/mm3 Baso # (Auto) 0.1 (0.0-0.1) K/mm3 Abs Immat Gran (auto) 0.03 (0.00-0.031) K/mm3 Absolute Neuts (auto) 6.2 (1.3-6.7) K/mm3 Absolute Nucleated RBC 0.000 (0.0-0.012) K/mm3 Nucleated RBC % 0.0 (0.0-0.2) % Sodium 138 (137-145) mmol/L Potassium 3.4 (3.4-5.0) mmol/L Chloride 105 (98-107) mmol/L Carbon Dioxide 24 (22-30) mmol/L Anion Gap 9 (4-12) mmol/L BUN 11 D (7-17) mg/dL Creatinine 0.87 (0.7-1.0) mg/dL Estim Creat Clear Calc 49 ml/min Estimated GFR > 60 (59 - ) Glucose 106 (65-110) mg/dL Calcium 9.0 (8.4-10.2) mg/dL Total Bilirubin 0.8 (0.2-1.3) mg/dL AST 45 H (14-36) U/L ALT 22 (6-35) U/L Alkaline Phosphatase 53 (38-126) U/L Total Protein 7.7 (6.3-8.2) g/dL Albumin 4.3 (3.5-5.1) g/dL Lipase 148 (23-300) U/L Urine Color Yellow (Yellow) Urine Appearance Clear (Clear) Urine pH 6.0 (5.0-9.0) Ur Specific [place] 1.004 (1.001-1.035) Urine Protein Negative (Negative) mg/dL Urine Glucose (UA) Negative (Negative) mg/dL Urine Ketones Negative (Negative) mg/dL Ur Blood (Man) Trace (Negative) Urine Nitrate Negative (Negative) Urine Bilirubin Negative (Negative) Urine Urobilinogen 0.2 (<2.0) mg/dL Leukocyte Esterase Rfl Negative (Negative) DALE/UL Urine RBC 0-2 (0-2) /hpf Urine WBC 0-5 (0-3) /hpf Ur Squamous Epith Cells Occasional (Few) /hpf Urine Bacteria None seen /hpf Urine Casts 0-2 POC Urine HCG, Qual Negative (Negative) Discharge Plan Discharge Clinical Impression: H. pylori infection, Drug-induced nausea and vomiting, Diarrhea due to drug Patient Disposition: Home Condition: Stable Instructions: Antibiotic Form, Acute Nausea and Vomiting (ED) Additional Instructions: Continue to follow-up with GI as scheduled. Your given a prescription for Zofran, take this as prescribed. Return to the ED for any new or worsening symptoms. Patient Language: Mongolian Prescriptions: New ondansetron 4 mg tablet,disintegrating 4 mg PO Q8H PRN (Reason: nausea and vomiting) Qty: 14 0RF No Action azelastine 0.05 % drops 1 drp EACH EYE BID dorzolamide-timolol 22.3-6.8 mg/mL drops 1 drp RIGHT EYE Q12H azelastine 137 mcg (0.1 %) spray,non-aerosol 2 spray INTRANASAL Q12H benzonatate 100 mg capsule 100 mg PO BID PRN (Reason: cough) Qty: 14 0RF estradiol 1 mg tablet 2 mg PO DAILY Rx Instructions: off 1 week; repeat cycle multivitamin with iron [Daily Vitamin with Iron] Tablet 1 tablet PO DAILY progesterone micronized 200 mg capsule 200 mg PO HS testosterone [AndroGel] 1 % (50 mg/5 gram) gel in packet 1 packet transdermal DAILY tetracycline 500 mg capsule 500 mg PO Q6H 14 Days Qty: 56 0RF metronidazole 500 mg tablet 500 mg PO Q8H 14 Days Qty: 42 0RF bismuth subsalicylate 525 mg tablet 525 mg PO QID 14 Days Qty: 56 0RF pantoprazole 40 mg tablet,delayed release (DR/EC) 40 mg PO BID 14 Days Qty: 28 0RF Follow-up/Referrals: Butch,Savanna Arzola NP [Primary Care Provider, Unknown]
[2024-12-20 08:17] VITALS: BP 128/62; PULSE 71; RESP 19; TEMP 36.9; O2SAT 99
--- OUTSIDE RECORDS SUMMARY | 2024-12-20 08:28 | XMS_ITS | Clinical Summary ---
Author Organization [facility] Address [address] [place] [address] Care Team Providers Care Logger All Round Name Role Phone Kendy Medrano MD Primary Care Provider [phone] Source Comments [facility],non-owned Affiliates and Associated Physician Practices is amultiple site organization consisting of ambulatory clinics and hospital sitesin [place], [place], [place] and [place]. This disclosure is being madepursuant to the Care Everywhere program and may not contain all information available regarding this patient. 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 Gender Identity Not on file Sexual Orientation [...] patient's age to complete this topic Insurance [facility] HUMANA HU[place]NA MEDICAID [place] SELF PAY NO INSURANCE Member Subscriber Plan / Payer (Ef fective for All Dates) Name:Carmen Escamilla Member ID:Not on file Relation to Subscriber:Not on file Name:CARMEN ESCAMILLA Subscriber ID:Not on file (Home) Address: [address] [place] [id number] Payer ID:Not on file Group ID:Not on file Type:Self Pay Address: [place], [place] Care Teams Logger All Round Relationship Specialty Start Date End Date Kendy Medrano MD [address] [place] [phone] PCP - General 06/16/18
--- OUTSIDE RECORDS SUMMARY | 2024-12-20 08:28 | XMS_ITS | Clinical Summary ---
Author Organization 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
--- OUTSIDE RECORDS SUMMARY | 2024-12-20 08:28 | XMS_ITS | Encounter Summary ---
Author Organization [facility] Address [address] [place] [address] Care Team Providers Care Glass Maker Name Role Phone Kendy Medrano MD Primary Care Provider [phone] Encounter Details Date Type Department Care Team (Late st Contact Info) Description 07/06/2023 Lab Requisition [facility] - DermPath Lab [address] [place] [id number] Bryan Palomares MD [address] [place] [address] Social History Tobacco Use Types Packs/Day Years Used Date Smoking Tobacco: Never Assessed Comments Unknown Sex and Gender Information Value Date Recorded Sex Assigned at Not on file 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 Gender Identity Not on file Sexual Orientation Not on file documented as of this encounter Plan of Treatment Not on file documented as of this encounter Procedures Procedure Name Priority Date/Time Associated Diagnosis Comments DERMATOPATHOLOGY Routine 07/06/2023 12:0 0 AM CDT documented in this encounter Results * DERMATOPATHOLOGY (07/06/2023 12:00 AM CDT) Case Report Dermatopathology Report Case: [id number] Authorizing Provider: Bryan Palomares MD Collected: 07/06/2023 12:00 AM Ordering Location: [facility] - Received: 07/07/2023 06:43 AM DermPath Lab [...] characteristic determined by the Dermatopathology Laboratory at [facility], directed by Dr. Ayse Pineda. These tests need not be, and therefore are not, approved by the [place] Food and Drug Administration. The tests are used for clinical purposes. Billing Codes Specimen Charges Stain Charges 69844 1 4 3:39 PM CDT DERMATOPATHOLOGY LABORATORY Embedded Images 4 3:39 PM CDT DERMATOPATHOLOGY LABORATORY Pathology/Cytolog y TISSUE SPECIMEN FROM SKIN / Unknown 07/06/2023 07/07/2023 6:43 AM CDT us Bryan Palomares MD LAB - PATHOLOGY/CYTOLOGY ORDERAB LES Final Result DERMATOPATHOLOGY LABORATORY [facility] - Department of Dermatology [address] [phone] documented in this encounter Visit Diagnoses Not on filedocumented in this encounter Care Teams Glass Maker Relationship Specialty Start Date End Date Kendy Medrano MD [address] [phone] PCP - General 06/16/18 documented as of this encounter
[2024-12-20 08:37] LABS: BEDSIDEPREGUCG Negative (Negative)
[2024-12-20 08:44] LABS: Add Urine Microscopic? YES; Appearance Urine Clear (Clear); Glucose Urine UA Negative (Negative); Leukocyte Esterase Ur Negative LEU/UL (Negative); Nitrate Urine Negative (Negative); Non Pathogenic Casts 0-2; Specific Grav Ur 1.004 (1.001-1.035)
[2024-12-20 08:57] LABS: Hematocrit 43.4 % (37.0-47.0); Hemoglobin 14.2 g/dL (12.0-15.0); Immature Granulocyte Percent A 0.4 % (0-0.5); Lymphocytes Absolute Auto 1.12 K/mm3 (0.9-3.2); Mean Corpuscular HGB Conc 32.7 g/dl (32-36); Mean Corpuscular Hemoglobin 29.1 pg (26-34); Mean Corpuscular Volume 88.9 fl (80-100); Nucleated Red Blood Cells Absolute Auto 0.000 K/mm3 (0.0-0.012); Nucleated Red Blood Cells Perc 0.0 % (0.0-0.2); Platelet Count Result 226 k/mm3 (150-375); Red Blood Count 4.88 M/mm3 (4.2-5.4); White Blood Count 8.0 K/mm3 (4.5-10.0)
[2024-12-20 09:00] LABS: Alanine Aminotransferase 22 U/L (6-35); Albumin Level 4.3 g/dL (3.5-5.1); Alkaline Phosphatase 53 U/L (38-126); Anion Gap 9 mmol/L (4-12); Aspartate Amino Transferase 45 U/L (14-36); Bilirubin,Total 0.8 mg/dL (0.2-1.3); Blood Urea Nitrogen 11 mg/dL (7-17); Calcium 9.0 mg/dL (8.4-10.2); Carbon Dioxide 24 mmol/L (22-30); Chloride 105 mmol/L (98-107); Estimated CRCL calculation 49 ml/min; Estimated Glomerular Filt Rate > 60; Glucose 106 mg/dL (65-110); Lipase 148 U/L (23-300); Potassium 3.4 mmol/L (3.4-5.0); Sodium 138 mmol/L (137-145); Total Protein 7.7 g/dL (6.3-8.2)
[2024-12-20 09:43] VITALS: BP 121/61; PULSE 696; RESP 20; O2SAT 100
== END 2024-12-20 09:45 | disposition home or self-care (01) ==
PROVIDERS: Emergency Provider Student in an Organized Health Care Education/Training Program; PCP Nurse Practitioner Family
DX: K52.1 Toxic gastroenteritis and colitis (principal); R11.2 Nausea with vomiting, unspecified; A04.8 Other specified bacterial intestinal infections; T37.3X5A Adverse effect of other antiprotozoal drugs, initial encounter; T36.4X5A Adverse effect of tetracyclines, initial encounter; T47.1X5A Adverse effect of other antacids and anti-gastric-secretion drugs, initial encounter; F41.9 Anxiety disorder, unspecified
CPT/HCPCS: 36415; 80053; 81001; 81025; 83690; 85025; 99283

== ENCOUNTER 2025-02-03 11:33 | Outpatient (CLI) | payer MEDICARE, MEDICAID, SELFPAY ==
--- OUTSIDE RECORDS SUMMARY | 2007-06-17 03:04 | XMS_ITS | Continuity of Care Document ---
Author Organization [facility] Address [address] [place] [address] [address] [place] [address] Phone Care Team Providers Care Electrical Machinist Name Role Phone Amor OD, Roberto Unavailable Unavailable Procedures Procedure Date Office/outpatient Visit, Est Close Tear Duct Opening Eye Exam, New Patient Advance Directives Directive Yes / No Effective Date File Name No Information Encounters Encounter Description Practice Location Reason(s) For Visit Diagnoses Date Provider Providers Copied on Encounter Office/outpat ient Visit, Est [facility], [address] [place] [address] [address], [place], [place], [id number], [place] tel:[phone] [facility] No Information 2200 8 Amor OD Roberto. [address] , [address], [place], [place], [facility] [place]note 2[place]. tel:[phone] [facility], [address] [place] [address] [address], [place], [place], [id number], tel:[phone] [facility] No Information [address] Calvin Diana. [address] , [address], [place], [address], [place]. tel:[phone] Family History Family Member Type Diagnosis Age At Onset No Information Payers Payer name Insurance type Covered democrat ID Mao ham(s) Medicaid [facility] [id number] Social History Type Description Quantity Date Captured Comments Sex Female Smoking Status No Information Chief Complaint And Reason For Visit No Information Reason For Referral Reason For Referral No Information History Of Present Illness Encounter Date Complaint History Of Prese nt Illness No Information Functional Status Date Functional Assessmen t No Information Instructions Date Instruction Additional Infor mation No Information Assessments Type Assessment Date No Information Patient Care Teams Name Effective Dates (start - stop) Status Members No Information
--- OUTSIDE RECORDS SUMMARY | 2025-02-03 11:41 | XMS_ITS | Clinical Summary ---
Author Organization [facility] Address [address] [place] [address] Care Team Providers Care Campus Wellness Coordinator Name Role Phone Kendy Medrano MD Primary Care Provider [phone] Source Comments [facility],non-owned Affiliates and Associated Physician Practices is amultiple site organization consisting of ambulatory clinics and hospital sitesin [place], [place], [place] and [place]. This disclosure is being madepursuant to the Care Everywhere program and may not contain all information available regarding this patient. 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 Gender Identity Not on file Sexual Orientation [...] 09/05/2017 ZOSTER VACCINE (1 of 2) 09/05/2017 DEPRESSION SCREENING 04/26/2024 COVID-19 VACCINE (1 - 2023-2 5 season) 2024 INFLUENZA VACCINE (#1) 2024 HIB VACCINE Aged [...] patient's age to complete this topic Insurance [facility] HUMANA HUMANA MEDICAID [place] SELF PAY NO INSURANCE Member Subscriber Plan / Payer (Ef fective for All Dates) Name:Carmen Escamilla Member ID:Not on file Relation to Subscriber:Not on file Name:CARMEN ESCAMILLA Subscriber ID:Not on file (Home) Address: [address] [place] [phone] Payer ID:Not on file Group ID:Not on file Type:Self Pay Address: [place], [place] Care Teams Campus Wellness Coordinator Relationship Specialty Start Date End Date Kendy Medrano MD [address] [id number] PCP - General 06/16/18
--- OUTSIDE RECORDS SUMMARY | 2025-02-03 11:41 | XMS_ITS | Data Portability ---
Author Organization [place] [facility], Main Office Address [address] [place] [address] Care Team Providers Care Phone Manager Name Role Phone JOHN RAE Primary Care Provider JOHN RAE Referring Provider FARRUKH MORROW Primary Care Provider [phone] Assessment Encounter Date Assessment Date Assessment LastModified by Organization Details LastModified Time 01/24/2025 01/24/2025 59-year-old female presents for follow-up of her right hip. We sent her to physical therapy and tried a course of anti-inflammator ies. She reports persistent pain especially when doing abduction exercises. Pain is still located over the side of the hip. She has tenderness over the trochanteric bursa radiating down the ITB band. She has pain with resisted abduction. Negative Trendelenburg. negative straight leg raise. X-rays of the hip were reviewed, demonstrating no acute bony abnormality, preserved joint space For her trochanteric bursitis We will continue conservative management with therapy exercises and anti-inflammator ies. We also discussed a cortisone injection but she will hold off on that. We are seeing her back next week for a separate problem so we can discuss again at that point. Not available 01/24/2025 10:10:33 01/31/2025 01/31/2025 59-year-old female presents for a problem with the right elbow which is new. We previously saw her for her right hip and she reports that is no longer bothering her. She reports tenderness over the medial aspect of the elbow especially with lifting weights. This has been going on for about 2 months. She denies any acute injury. She currently rates her pain as 2/10. She has been taking ibuprofen, has not had any other treatments. She has tenderness palpation of the medial epicondyle and the origin of the flexor pronators. Pain with resisted wrist flexion. Sensation intact to light touch, negative Tinel's at the cubital tunnel. X-rays were reviewed, demonstrating no acute bony abnormality She has medial epicondylitis. We will begin with a course of conservative management. She can add that to her PT. She can also use topical Voltaren in addition to the other treatments she is already doing. We will see her back in 6 weeks for recheck. She is in agreement plan. Not available 01/31/2025 14:27:54 Plan of Treatment Reminders Order Date Submit Date Provider Last Modified By Organization Details Last Modified Time Details Appointments Any 5 2024 09:20A M Davie Hughes MD Not available Not available Not available Follow Up 15 2024 09:45A Car Rae NP Not available Not available Not available Lab CBC w/ auto diff 2024 025 [facility] (Lab), [address] [place], [address], 10/05/2024 00:42:29 iron + TIBC + ferritin, serum 2024 025 [facility] (Lab), [address] [place], [address], 10/05/2024 00:42:29 TSH + free T4, serum 2024 025 [facility] (Lab), [address] [place], [address], 10/05/2024 00:42:29 cortisol, serum or plasma 2024 025 [facility] Influenza Testing, [address] [place], [address], 10/06/2024 16:02:21 lipid panel, serum 2024 025 [facility] (Lab), [address] [place], [address], 10/05/2024 00:42:29 CMP, serum or plasma 2024 025 [facility] (Lab), [address] [place], [address], 10/05/2024 00:42:29 HbA1c (hemoglob in A1c), blood 2024 025 [facility] (Lab), [address] [place], [address], 10/05/2024 00:42:29 Referral gastroent erologist referral - Please call patient to schedule an appointme nt. Thank you. 2024 025 [email or web address] Jose barnard MD, [address], [address], [place], [address], 01/09/2025 12:08:13 Procedures None recorded. Surgeries None recorded. Imaging XR, elbow, 3 or more view 2024 025 [email or web address] [facility], [address], [place], [address], 01/31/2025 16:33:50 XR, hip + pelvis, unilatera l 2024 025 [email or web address] [facility], [address], [place], [address], 01/25/2025 08:18:05 Medication Orders hydrocodo ne 5 mg-acetam inophen 325 mg tablet 2024 025 [id number], [address] [facility], [place], [place], [id number], 01/03/2025 15:08:42 hydrocodo ne 5 mg-acetam inophen 325 mg tablet 2024 025 J[facility] #[id number], [address], [place], [place], [id number], 10/04/2024 09:16:35 azelastin e 137 mcg (0.1 %) nasal spray 2024 025 gayle [facility] #[id number], [address], [place], [place], [id number], 01/24/2025 09:38:45 Patient TargetsNo targets recorded. 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 Thank you. Referring Physician: John Rae, Family Medicine, Encounter Date: 10/04/2024 Results Created Date Observation Date Name Description Value Unit Range Abnormal Flag Note LastModifiedBy Organization Detail LastModifiedTime 05/24/19 25 05/24/2024 imagi ng/di agnos tic resul t No observ ation record ed. [address], [place], [address], 05/24/2024 21:02:26 05/25/19 25 05/24/2024 CT, sinus es, w/o contr ast No observ ation record ed. [email or web address] [address], [place], [address], 05/29/2024 15:44:47 06/05/19 25 06/05/2024 CT, sinus es, w/o contr ast No observ ation record ed. [facility] [address], [place], [address], 06/05/2024 11:12:49 07/06/19 25 07/05/2024 DEXA, axial skele ton No observ ation record ed. [address], [place], [address], 07/06/2024 10:11:54 07/06/19 25 07/05/2024 DEXA, axial skele ton No observ ation record ed. [facility] [address], [place], [address], 07/06/2024 10:11:55 01/25/20 25 XR, hip + pelvi s, unila teral No observ ation record ed. [email or web address] [facility] [address], [place], [address], 01/24/2025 09:40:30 02/01/20 25 XR, elbow , 3 or more view No observ ation record ed. [email or web address] [facility] [address] [facility] [address], [place], [address], 01/31/2025 09:44:04 Result Notes None recorded. Problems Name Problem SNOMED Code Status Onset Date Resolution Date Notes Provider Name and Address Organization Details Recorded Time Constipati on 08207959 Active Skye Gutierrez APRN [address], [address], [place], [address] , [employer] 4 10:55:25 Heartburn 78044817 Active Not Available [facility] 08:57:31 Plantar fasciitis 289523006 Active Not Available [facility] 3 08:57:31 Gastroesop hageal reflux disease 453641706 Active Skye Gutierrez APRN [address], [address], [place], [address] , [employer] 4 10:55:28 Bloating symptom 488617578 Active Not Available [employer] 3 08:57:31 Burping 989912070 Active Not Available [employer] 3 08:57:31 Sinusitis 11093148 Active Not Available [facility] 3 08:57:31 Disorder of vitamin D 272578502 Active Not Available [facility] 3 08:57:31 Vertigo 479944764 Active Skye Gutierrez APRN [address], [address], [place], [address] , [facility] 4 10:56:13 Dizziness 547627925 Active Not Available [facility] 3 08:57:31 Anxiety 55667509 Active Skye Gutierrez APRN [address], [address], [place], [address] , [place] [facility] 4 10:55:20 Mastoiditi s 21438260 Active Not Available [facility] 3 08:57:31 Medial epicondyli tis 76006607 Active Not Available [facility] 3 08:57:31 Neoplasm of uncertain behavior of skin 51420234 Active Not Available [facility] 3 08:57:32 Iron deficiency anemia 30815140 Active 2017 Skye Gutierrez APRN [address], [address], [place], [address] , [facility] [employer] 4 10:55:47 Glaucoma 84344653 Active 2022 Skye Gutierrez APRN [address], [address], [place], [address] , [place] [facility] 4 10:55:31 Migraine 41899083 Active 2022 Skye Gutierrez APRN [address], [address], [place], [address] , [place] [facility] 4 10:56:17 Acute sinusitis 60772016 Active 2022 BRIGITTE Mayorga [address], [address], [place], [address] , [place] [facility] 3 11:33:21 Low back pain 101243330 Active 2022 RAQUEL Knapp [address], [address], [place], [address] , [facility] 3 11:20:00 Cystocele 166605878 Active 2022 Dawn Cazares MD [address], [address], [place], [address] , [facility] 3 14:40:01 Pain of right shoulder joint 6740886150797 9100 Active 2022 Dawn Cazares MD [address], [address], [place], [address] , [facility] 3 16:38:30 Tendinitis of right shoulder 9301460488484 101 Active 2022 Jaclyn Watkins CMA [facility], [facility] 3 13:17:10 Palpitatio ns 47942075 Active 2023 Dawn Cazares MD [address], [address], [place], [address] , [facility] 4 10:24:00 Thyroid function tests abnormal 379712345 Active 2023 Dawn Cazares MD [address], [address], [place], [address] , [facility] 4 08:06:34 Hyperthyro idism 43712726 Active 2023 Skye Gutierrez APRN [address], [place], [address] , [facility] 4 10:55:35 Cough 07779653 Active 2023 RAQUEL Oconnell [address], [address], [place], [address] , [facility] 4 11:30:51 Impacted cerumen of bilateral ears 0198794520154 108 Active 2023 RAQUEL Oconnell [address], [address], [place], [address] , [facility] 4 11:32:57 Pain of right hip joint 0196789328303 02 Active 2023 EMILY Rogers null, [facility] 5 09:37:57 Chronic sinusitis 81190325 Active 2024 Skye Gutierrez APRN [address], [place], [address] , [facility] 5 14:55:00 Allergic rhinitis 09662939 Active 2024 Madelyn Rosario RN null, [facility] 5 16:56:39 Pain in throat 434894295 Active 2024 Frank Aj MD [address], [address], [place], [address] , [facility] 5 16:58:04 Allergic rhinitis caused by pollen 97494836 Active 2024 Frank Aj MD [address], [place], [address] , [facility] 5 16:58:45 Gastroesop hageal reflux disease without esophagiti s 655114353 Active 2024 RAQUEL Oconnell [address], [place], [address] , [facility] 5 09:05:28 Iron deficiency 90718765 Active 2024 RAQUEL Oconnell [address], [place], [address] , [facility] 5 09:08:53 Menopausal symptom 09160482 Active 2024 RAQUEL Oconnell [address], [place], [address] , [facility] 5 09:12:28 Pain of elbow region 86040396 Active 2024 EMILY Rogers null, [place] [facility] 09:43:57 Problem Notes None recorded. Procedures Surgical History Date Name Laterality Status Provider Name and Address Organization Details Recorded Time 04/05/20 Medicare Wellness CPT Code, subsequent completed Skye HoSHAILA villar [address], [place], [address], [facility] 03/31/2024 20:39:50 10/27/19 Chronic care management services completed RAQUEL Knapp [address], [place], [address], [employer] 11/04/2023 17:18:20 Cataract Surgery completed Not Available [facility] 06/24/2022 08:54:41 section completed Not Available [facility] 06/24/2022 08:54:41 tonsillectomy completed Not Available [facility] 06/24/2022 08:54:41 Imaging Results None recorded. Procedure Notes None recorded. Medical Equipment None Reported. Allergies Allergen ID Allergen Name Allergen Category Reaction Reaction Severity Criticality Documentation Date Start Date Code Code System Note Provider Name and Address Organization Details Recorded Time 62797 Substance with sulfonami de structure and antibacte rial mechanism of action (substanc e) medicatio n Not available Not available Not available 06/24/2022 59368 8003 SNOMED Not Available [facility] 3 09:00:48 45141 Demerol medicatio n Not available Not available Not available 06/24/2022 78487 1 RxNorm Not Available [facility] 3 09:00:48 61435 omeprazol e medicatio n abdominal pain Not available [facility] 08/08/2024 7646 RxNorm JOHN Aguila [facility] [employer] 5 10:09:37 Medications Name Sig Start Date Stop Date Status Note LastModified by Organization Details LastModified Time tetracycli ne 500 mg capsule TAKE 1 CAPSULE BY MOUTH EVERY 6 HOURS FOR 2 WEEKS 01/03 completed Not Available Not Available Not Available cyclobenza natali 10 mg tablet TAKE 1 [...] ml intraderm al x 1 02/23 completed [facility]# [id number] [phone] Not Available Not Available Not [...] Not Available Not Available No t Available metronidaz ole 500 mg tablet TAKE 1 TABLET BY MOUTH EVERY 8 HOURS FOR 2 WEEKS 01/24 completed Not Available Not Available Not Available hydroxyzin e HCl 50 mg tablet [...] tablet TAKE 1 TABLET BY MOUTH DAILY 01/24 completed Not Available Not Available Not Available malathion 0.5 % lotion APPLY BY [...] completed Not Available Not Available Not Available benzonatat e 100 mg capsule TAKE 1 CAPSULE BY MOUTH TWICE DAILY NEEDED FOR COUGH active Not Available Not Available No t Available timolol maleate 0.25 % eye drops INSTILL 1 DROP IN BOTH EYES AT BEDTIME 01/31 completed Not Available Not Available Not Available timolol 0.5 % eye drops INSTILL 1 DROP INTO AFFECTED EYE(S) BY OPHTHALMI C ROUTE 2 TIMES PER DAY 05/31 completed Not Available Not Available Not Available pantoprazo le 40 mg tablet,del ayed release TAKE 1 TABLET BY MOUTH TWICE DAILY FOR 14 DAYS 01/24 completed Not Available Not Available Not Available [...] Not Available Not Available Not Available estradiol 2 mg tablet TAKE 1 TABLET BY MOUTH EVERY DAY active Not Available Not Available No t Available diclofenac sodium 75 mg tablet,del ayed release 09/20 completed Not Available Not Available Not Available dorzolamid e 22.3 mg-timolol 6.8 mg/mL eye drops INSTILL 1 DROP INTO BOTH EYES TWICE DAILY active Not Available Not Available No t Available polyethyle ne glycol 3350 (bulk) powder MIX THE CONTENTS OF 1 PACKAGE WITH 4 TO 8 OZ OF LIQUID AND DRINK DAILY NEEDED CONSTIPAT ION 01/02 completed Not Available Not Available Not Available estradiol 0.5 mg tablet TAKE 1 TABLET BY MOUTH DAILY 01/24 completed Based on labs Not Available Not Available Not Available ergocalcif suhail (vitamin D2) 1,250 mcg (50,000 unit) capsule TAKE ONE CAPSULE BY MOUTH EVERY WEEK 04/02 completed Not Available Not Available Not Available azelastine 137 mcg (0.1 %) nasal spray USE 2 SPRAYS NASALLY TWICE DAILY 01/24 completed Not Available Not Available Not Available [...] Not Available Not Available No t Available ondansetro n 4 mg disintegra ting tablet DISSOLVE 1 TABLET ON THE TONGUE EVERY 8 HOURS NEEDED FOR NAUSEA OR VOMITING 01/24 completed Not Available Not Available Not Available fluticason e propionate 50 mcg/actuat ion [...] Not Available Not Available testostero ne CREAM 01/31 completed CREAM Not Available Not Available Not Available Iron (ferrous sulfate) active Not Available Not Available Not Available Zyrtec [...] Not Available Not Available Not Available Fluvirin 3847-8957 45 mcg (15 mcg x 3)/0.5 mL intramuscu lar suspension ADM 0.5ML UTD 12/30 completed Not Available Not Available Not Available Virtussin AC 10 mg-100 mg/5 mL oral liquid TAKE 5 ML BY MOUTH EVERY 6 HOURS NEEDED FOR COUGH 08/30 completed Not Available Not Available Not Available ivermectin 1 % topical cream Apply by topical route for 30 days. active Not Available Not Available No t Available Vitals Date Recorded Body height Body mass index (BMI) Body weight Body temperature Provider Name and Address Organization Details Last Updated DateTime 06/15/2024 157.48 cm 25.6 kg/m2 80069.93 g 97.8 [degF] Madelyn Rosario RN [place] [facility] 06/15/2024 16:45:03 Date Recorded Body height Body mass index (BMI) Body weight Body temperature Heart rate Oxygen saturation Oxygen saturation in Arterial blood by Pulse oximetry Systolic And Diastolic Provider Name and Address Organization Details Last Updated DateTime 157.48 cm 25.6 kg/m2 00782.9 3 g 97.8 [degF] 65 /min 97 % 97 % 102/62 mm[Hg] Cuong Walls [facility] [employer] [facility] 09:02:32 Date Recorded Body height Body mass index (BMI) Body weight Body temperature Heart rate Oxygen saturation Oxygen saturation in Arterial blood by Pulse oximetry Systolic And Diastolic Provider Name and Address Organization Details Last Updated DateTime 157.48 cm 24.9 kg/m2 47666.5 6 g 98.1 [degF] 66 /min 99 % 99 % 100/62 mm[Hg] Cuong Walls [facility] [employer] [facility] 15:02:08 Date Recorded Body height Body mass index (BMI) Body weight Pain severity - 0-10 verbal numeric rating [Score] - Reported Provider Name and Address Organization Details Last Updated DateTime 01/24/2025 157.48 cm 25.6 kg/m2 33861.93 g 4 Lydia Cutler [facility] [employer] [facility] 01/24/2025 09:38:27 Date Recorded Body height Body mass index (BMI) Body weight Pain severity - 0-10 verbal numeric rating [Score] - Reported Provider Name and Address Organization Details Last Updated DateTime 01/31/2025 157.48 cm 25.6 kg/m2 77509.93 g 2 Lydia Cutler [facility] [employer] [facility] 01/31/2025 09:42:39 Social History Question Answer Notes LastModified by Organizat ion Details LastModified Time Tobacco Smoking Status Never Smoker Not Available [employer] 06/24/2022 08:54:29 What Is Your Level Of Caffeine Consumption? None [id number] Information not available 06/24/2022 How Much Tobacco Do You Chew? None [id number] Information not available 06/24/2022 In The 14 Days Before Symptom Onset, Have You Had Close Contact With A Laboratory-confir med COVID-19 While That Case Was Ill? No [id number] Information not available 06/24/2022 In The 14 Days Before Symptom Onset, Have You Had Close Contact With A Person Who Is Under Investigation For COVID-19 While That Person Was Ill? No [id number] Information not available 06/24/2022 What Type Of Diet Are You Following? REGULAR [id number] Information not available 06/24/2022 Which Illicit Or Recreational Drugs Have You Used? No [id number] Information not available 06/24/2022 Have There Been Any Changes To Your Family Or Social Situation? No Information no t available 03/08/2024 Do You Use Insect Repellent Routinely? No Information not available 03/08/2024 Where Do You Live? SingleLevelHouse Information not available 03/08/2024 What Was The Date Of Your Most Recent Tobacco Screening? 01/24/2025 [email or web address] Information not available 01/24/2025 How Many Children Do You Have? 1 [...] Age Did You Start Smoking Tobacco? 2 [id number].[id number] Information not available 06/24/2022 Are You Passively Exposed To Smoke? No Information no t available 03/08/2024 Are There Any Smokers In Your House? No Information not available 03/08/2024 How Much Tobacco Do You Smoke? No MIGRATION.[id number] Information not available 06/24/2022 Do You Use Sunscreen Routinely? No Information not available 03/08/2024 How Many Years Have You Smoked Tobacco? 0 [id number].71205 [id number] Information not available 06/24/2022 Have You Recently Traveled Abroad? No Information not available 03/08/2024 Do You Have Any Dietary Restrictions? No MIGRATION.[id number] [id number] Information not available 06/24/2022 Sex: Unknown Functional Status Question Answer Note LastModified by Organizat ion Details LastModified Time Do you use any illicit or recreational drugs? No [id number] Information not available 06/24/2022 Do you or have you ever used any other forms of tobacco or nicotine? No MIGRATION.[id number] Information not available 06/24/2022 What is your level of alcohol consumption? None MIGRATION.117811 9187 Information not available 06/24/2022 Do you or have you ever used smokeless tobacco? Never used smokeless tobacco MIGRATION.725506 0171 Information not available 06/24/2022 Are you currently employed? Yes Information not available 03/08/2024 What is your occupation? [email or web address] Information not available 03/08/2024 Do you or have you ever used e-cigarettes or vape? Never used electronic cigarettes [id number].[id number] Information not available 06/24/2022 What is your exercise level? Moderate [id number].[id number] Information not available 06/24/2022 Mental Status Question Answer Note LastModified by Organization D etails LastModified Time Do you feel stressed (tense, restless, nervous, or anxious, or unable to sleep at night)? [id number] Information not available 03/08/2024 Family History Relationship Description Onset Age of this Age Resolved Age Notes LastModified by Organization Details LastModified Time Brother Atrial fibrillation [email or web address] Not available 0 05/17/2024 13:56:13 Brother Cerebrovascu lar accident [email or web address] Not available 0 05/17/2024 13:56:13 Father Cerebrovascu lar accident [email or web address] Not available 0 05/17/2024 13:56:13 Father Atrial fibrillation [email or web address] Not available 0 05/17/2024 13:56:13 Mother Heart disease [email or web address] Not available 2022 11:54:38 Mother Hypertensive disorder [email or web address] Not available 2022 11:54:49 Mother Chronic sinusitis [email or web address] Not available 2024 14:03:15 Mother Decreased hearing DUE TO UNTREA PAT EAR INFECT IONS A KID [email or web address] Not available 05/17/2024 14:03:42 Notes:stroke brother - Medical History Condition Response ANXIETY DISORDER Y ANEMIA/BLOOD DISORDER Y GERD/NAUSEA Y DIZZINESS Y ENT Y BOWEL PROBLEMS Y HAVE YOU BEEN HOSPITALIZED OR SEEN IN [facility] IN THE PAST YEAR ? Y HEARTBURN [...] split virus, trivalent, preservative 3 completed Skye Gutierrez APRN [address], [facility] [address], [place], [address], [employer] [facility] 03/04/2024 10:52:19 Influenza, split virus, trivalent, preservative 2 completed Not Available [facility] 06/24/2022 09:00:40 Influenza, split virus, quadrivalent, PF 2 completed Skye Gutierrez APRN [address] [facility], [facility] [address], [place], [address], [employer] [facility] 03/04/2024 10:52:19 Influenza, split virus, quadrivalent, PF 9 completed Not Available [facility] 06/24/2022 09:00:40 Influenza, split virus, quadrivalent, PF 8 completed Not Available [facility] 06/24/2022 09:00:40 Influenza, split virus, quadrivalent, PF 0 completed Not Available [facility] 06/24/2022 09:00:40 Past Encounters Encounter ID Performer Location Encounter Start Date Encounter Closed Date Diagnosis/Indication Diagnosis SNOMED-CT Code Diagnosis ICD10 Code Diagnosis IMO Codes Diagnosis Note [id number] [facility] [address] [place] [address] 08/23/2020 00:00:00 08/23/2020 12:35:28 [id number] _ATHN_MIGR ATION_1 _ATHENA_M IGRATION_ DEFAULT_1 _1 , 10/30/2020 00:00:00 10/30/2020 13:03:41 [id number] [facility] [place] [address] [place] [address] [address] [place] [address] 01/14/2021 00:00:00 01/14/2021 14:33:20 [id number] [facility] [place] [address] [place] [address] [address] [place] [address] 03/12/2021 00:00:00 03/12/2021 13:15:25 [id number] [facility] [place] [address] [place] [address] [address] [place] [address] 03/25/2021 00:00:00 03/25/2021 10:54:42 [id number] [facility] [place] [address] [place] [address] [address] [place] [address] 12/17/2021 00:00:00 12/17/2021 12:26:[id number] [facility] Primary Care [place] [address] [place] [address] [address] [place] [address] 04/07/2022 00:00:00 04/07/2022 17:45:34 [id number] [facility] Primary [facility] [place] [address] [place] [address] [address] [place] [address] 06/09/2022 00:00:00 06/09/2022 16:31:55 [id number] [facility] [place] [address] [place] [address] 04/02/2023 11:29:26 04/02/2023 13:23:22 Pain of right shoulder joint [id number] M25.411 [id number] [facility] [place] [address] [place] [address] 05/31/2023 16:21:38 05/31/2023 17:37:31 Pain of right shoulder joint [id number] M25.124 [id number] [address] [facility] Primary Care [address] [place] [address] 07/26/2023 09:59:03 07/26/2023 10:35:14 Anxiety 45970157 F41.9 agree with starting sertraline 50 mg daily with food in PMreviewed potential med s/ewill f/u with gynecology Palpitations 58754435 R0 0.2 R53.83 check labscardio logy referral given Hyperlipid emia screening 188708873 Z13.875 [id number] [address] [facility] Primary Care [address] [place] [address] 08/10/2023 09:39:17 08/10/2023 10:20:[id number] [facility] Primary Care [address] [place] [address] 10/04/2023 09:04:09 10/04/2023 09:14:[id number] [facility] Primary Care [address] [place] [address] 10/27/2023 17:23:25 11/22/2023 18:36:[id number] [facility] Primary Care [address] [place] [address] 11/15/2023 11:16:08 11/15/2023 11:43:27 Cough 44304134 R05.9 Discussed OTC medication s for cough, warm tea and honey. Impacted c erumen of bilateral ears 6024429017 097380 H61.23 Discussed use of Debrox and other home remedies for cerumen removal as patient did not wish to have ears flushed in office. Acute sinusitis 86867244 J01.90 Discussed abx therapy. [id number] Davie Hughes MD [facility] [place] [address] [place] [address] 01/05/2024 09:34:12 01/05/2024 10:36:33 Pain of right hip joint [id number] 89019 M25.880 [id number] Lucas horner MD [facility] Primary Care [facility] [address] [place] [address] 03/08/2024 10:05:58 03/08/2024 11:09:39 Screening for malignant neoplasm of colon 433198516 Z12.11 Migraine 32313479 G43.90 9 [id number] [facility] Primary Care [facility] [address] [place] [address] 04/05/2024 14:08:39 04/05/2024 14:55:57 Adult health examination 442981559 Z00.00 Screening for disorder 310904647 Z13.9 Screening for osteoporosis 252675173 Z13.820 Hepatitis C screening 41 1942373 Z11.[id number] [facility] [place] [address] [place] [address] 05/17/2024 13:52:01 05/17/2024 14:37:08 Chronic sinusitis 82225920 J32.[id number] [facility] [place] [address] [place] [address] 06/15/2024 16:08:32 07/10/2024 17:55:24 Allergic rhinitis 31589199 J30.0 Encourage to take OTC Zyrtec type meds with flonase for 3-4 months. Allergic r hinitis caused by pollen 78094371 J30.[id number] [facility] Primary Care [facility] [address] [facility] [address] [place] [address] 10/04/2024 08:52:06 10/04/2024 17:23:32 Gastroesophageal reflux disease without esophagitis 695559751 K21.9 R13.10 105538 Chronic sinusitis 574539 00 J32.9 Iron deficiency 24077517 E61.1 9881 Diabetes m ellitus screening 405173608 Z13.1 19826 Screening for cardiovascular system disease 537611298 Z13.6 798377 Thyroid di sorder screening 060407163 Z13.29 92052 Menopausal symptom 40515 002 N95.1 306047 [id number] RAQU[facility] Primary Care [facility] [address] [facility] [address] [place] [address] 01/03/2025 14:51:33 01/03/2025 15:11:04 Chronic sinusitis 69490047 J32.[id number] [facility] [place] [address] [place] [address] 01/24/2025 09:12:09 01/24/2025 10:11:23 Pain of right hip joint 6233688186 73023 M25.[id number] [facility] [place] [address] [place] [address] 01/31/2025 09:34:45 01/31/2025 10:19:13 Pain of elbow region 81769965 M25.521 [id number] Health Concerns Section Related Observation LastModified by Organization Detai ls LastModified Time None Recorded Concern Status LastModified by Organization Details LastModified Time None Recorded Advance Directives Directive None Recorded Payers Insurance Date Sequence Insurance Name Policy Number Policy Gamble Covered Member ID Gamble Member ID Guarantor Name 01/30/2025 1 [employer] - GOLD PLUS (MEDICARE REPLACEMENT/A DVANTAGE - HMO) Carmen Escamilla [id number] Carmen Escamilla 01/24/2025 2 [place] [employer] Carmen Escamilla [id number] Carmen Escamilla 01/24/2025 3 [place] Carmen Escamilla [id number] Carmen Escamilla Notes Date Note Type Note Provider Name and Address Organization Details Recorded Time 06/15/2024 text/html this patient has facial and frontal headaches and it was thought that this was related to sinusitis she had a sinus CT which was negative except for septal deviation. She thinks this might be allergic and she maybe right. She was tested 20 years ago. She uses OTC allergy medications Frank Aj MD [address], [place], [address], [employer] 06/15/2024 16:59:35 10/04/2024 text/html Patient is a 59 year old female that presents to the office to establish care. Patient was previous patient of Skye Gutierrez, last wellness was 04/05/2024. Patient reports she is doing well overall. Requesting referral to GI as her previous specialist has retired. RAQUEL Oconnell [address], [place], [address], [employer] 10/05/2024 11:34:19 01/03/2025 text/html Patient is a 59 year old female that presents to the office for 3 month follow up. Patient reports she is doing well and has no concerns at this time. RAQUEL Oconnell [address], [place], [address], [employer] 01/03/2025 15:10:41 OBGyn Episode No OBEpisode recorded.
--- OUTSIDE RECORDS SUMMARY | 2025-02-03 11:41 | XMS_ITS | Encounter Summary ---
Author Organization [facility] Address [address] [place] [address] Care Team Providers Care Optical Effects Layout Person Name Role Phone Kendy Medrano MD Primary Care Provider [phone] Encounter Details Date Type Department Care Team (Late st Contact Info) Description 07/06/2023 Lab Requisition [facility] - DermPath Lab [address] [facility] [address] [place] [id number] Bryan Palomares MD [address] [place] [address] Social History Tobacco Use Types Packs/Day Years Used Date Smoking Tobacco: Never Assessed Comments Unknown Sex and Gender Information Value Date Recorded Sex Assigned at Not on file 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 Gender Identity Not on file Sexual Orientation Not on file documented as of this encounter Plan of Treatment Not on file documented as of this encounter Procedures Procedure Name Priority Date/Time Associated Diagnosis Comments DERMATOPATHOLOGY Routine 07/06/2023 12:0 0 AM CDT documented in this encounter Results * DERMATOPATHOLOGY (07/06/2023 12:00 AM CDT) Case Report Dermatopathology Report Case: [id number] Authorizing Provider: Bryan Palomares MD Collected: 07/06/2023 12:00 AM Ordering Location: [facility] Physician [facility] - Received: 07/07/2023 [...] characteristic determined by the Dermatopathology Laboratory at [facility], directed by Dr. Ayse Pineda. These tests need not be, and therefore are not, approved by the [place] Food and Drug Administration. The tests are used for clinical purposes. Billing Codes Specimen Charges Stain Charges 76513 1 4 3:39 PM CDT DERMATOPATHOLOGY LABORATORY Embedded Images 4 3:39 PM CDT DERMATOPATHOLOGY LABORATORY Pathology/Cytolog y TISSUE SPECIMEN FROM SKIN / Unknown 07/06/2023 07/07/2023 6:43 AM CDT us Bryan Palomares MD LAB - PATHOLOGY/CYTOLOGY ORDERAB LES Final Result DERMATOPATHOLOGY LABORATORY [facility] - Department of Dermatology [address] [phone] documented in this encounter Visit Diagnoses Not on filedocumented in this encounter Care Teams Optical Effects Layout Person Relationship Specialty Start Date End Date Kendy Medrano MD [address] [phone] PCP - General 06/16/18 documented as of this encounter
--- OUTSIDE RECORDS SUMMARY | 2025-02-03 11:41 | XMS_ITS | Clinical Summary ---
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 Gender Identity Not on file Sexual Orientation [...] 09/05/2017 Zoster Immunization (1 of 2) 09/05/2017 Medicare Initial AWV [id number] 12/25/2021 Influenza Immunization (#1) 12/25/202403/26, 02/14/2020, 02/27/2019, Additional history exists SARS-COV-2 Immunization ( season) 2024 Colonoscopy 11/26/2026 11/26/2016 Colorectal Cancer Screening 11/26/2026 [...] Insurance MEDICARE [employer] [place]ICAID [place] Care Teams Tableau Administrator Relationship Specialty Start Date End Date Dawn Cazares MD [address] [place] [address] PCP - General Family Medicine 11/27/16 Kendy Medrano MD [address] [phone] Obstetrics & Gynecology 06/11/16 Roberto Garcia DO [address] [place] [address] Gastroenterology 11/27/16 Sanna Vieyra MD [address] [phone] Consulting Physician Endocrinology 10/15/23
--- OUTSIDE RECORDS SUMMARY | 2025-02-03 11:41 | XMS_ITS | Encounter Summary ---
Author Organization [facility] Address [facility] [place] [address] Care Team Providers Care Road Machinery Inspector Name Role Phone Dawn Cazares MD Primary Care Provider [phone] Encounter Details Date Type Department Care Team (Late st Contact Info) Description 09/16/2023 Abstract [facility] [facility], [address] [address] Fauzia Brannon MA Social History Tobacco Use [...] * THYROID STIM HORMONE TSH (07/27/2023) Pathologist [facility] TSH 1.080 us Default History Genericprovider LABORATORY Edited Result - Final * MAGNESIUM (07/26/2023) Pathologist [facility] MAGNESIUM 1.9 us Default History Genericprovider LABORATORY Final Result * LIPID PANEL (07/26/2023) Pathologist [facility] CHOLESTEROL 185 HDL 69 TRIGLYCERIDES 107 LDL (CALCULATED) 95 07/26/2023 us Default History Genericprovider LABORATORY Final Result documented in this encounter Visit Diagnoses Not on filedocumented in this encounter Care Teams Road Machinery Inspector Relationship Specialty Start Date End Date Dawn Cazares MD [address] [place] [address] PCP - General FAMILY PRACTICE 08/12/23 documented as of this encounter
--- OUTSIDE RECORDS SUMMARY | 2025-02-03 11:41 | XMS_ITS | Clinical Summary ---
Author Organization [facility] Address [facility] [place] [address] Care Team Providers Care Table Machine Operator Name Role Phone Dawn Cazares MD Primary Care Provider [phone] Allergies Active Allergy Reactions Criticality Noted Date [...] 09/05/1997 Mammogram Screening 2007 Pneumococcal Vaccine: 50+ Years (1 of 1 - PCV) 09/05/2017 Zoster Vaccines (1 of 2) 09/05/2017 COVID-19 Vaccine (1 - season) 2024 Influenza Adult (#1) 2025 04/07/2022, 02/14/2020, 02/27/2019, Additional history exists Meningococcal B Vaccine Aged Out No l onger eligible based on patient's age to complete this topic Meningococcal Vaccine Aged Out No darlene ward eligible based on patient's age to complete this topic RSV Immunizations Under 20 Months Aged Out No longer eligible based on patient's age to complete this topic Insurance HUMANA MEDICARE MEDICAID Care Teams Table Machine Operator Relationship Specialty Start Date End Date Dawn Cazares MD [address] [place] [address] [place] [address] PCP - General FAMILY PRACTICE 08/12/23
== END 2025-02-03 11:34 | disposition home or self-care (01) ==
LOC: ANHLAB 11:38
PROVIDERS: PCP Nurse Practitioner Family; Visit Provider Nurse Practitioner Family
DX: A04.8 Other specified bacterial intestinal infections (principal)
CPT/HCPCS: 83013

== ENCOUNTER 2025-03-02 16:18 | Emergency (ER) | payer MEDICARE, MEDICAID, SELFPAY ==
[2025-03-02 16:27] VITALS: BP 123/61; PULSE 81; RESP 16; TEMP 36.8; O2SAT 99
--- NOTE | 2025-03-02 16:46 | ED.EYEPROB ---
HPI - Eye Problem General Chief complaint: Eye Problems Stated complaint: Eyes Irritation Time Seen by Provider: 03/02/25 16:30 Source: patient and RN notes reviewed Mode of arrival: ambulatory Limitations: no limitations History of Present Illness HPI Narrative: 59-year-old female presents Express Care complaining of bilateral lower eyelid the irritation. Patient reports having burning sensation in her eyes. Patient reports her lower eyelids are itchy, swollen, and red. Patient denies any eye redness, vision changes, or purulent discharge coming from her eyes. She does report that her eyelashes are crusting the morning. Patient currently is being treated for glaucoma and also uses an allergy eye drops daily. Patient has not tried any coed-qmw-uvfuuch help with symptoms. Related Data Home Medications ?Medication ?Instructions ?Recorded ?Confirmed ?Last Taken ?Type estradiol 1 mg tablet 2 mg PO DAILY 11/08/24 01/10/25 11/28/24 History azelastine 0.05 % eye drops 1 drp EACH EYE BID 11/16/24 01/10/25 11/29/24 History dorzolamide 22.3 mg-timolol 6.8 1 drp RIGHT EYE Q12H 11/16/24 01/10/25 11/29/24 History mg/mL eye drops progesterone micronized 200 mg 200 mg PO HS 11/16/24 01/10/25 11/28/24 History capsule testosterone 1 % (50 mg/5 gram) 1 packet transdermal DAILY 11/16/24 01/10/25 11/28/24 History transdermal gel packet (AndroGel) Allergies Allergy/AdvReac Type Severity Reaction Status Date / Time Sulfa (Sulfonamide Allergy Severe RASH Verified 03/02/25 16:38 Antibiotics) meperidine AdvReac Severe LOW BP Verified 03/02/25 16:38 RAGWEED Allergy Mild ITCHY, Uncoded 01/10/25 09:25 SNEEZY, CONGESTED Review of Systems Review of Systems: CONSTITUTIONAL: Denies fever, chills, or sweats. EYES: Denies visual changes, redness, or discharge. Positive for eyelid redness, swelling, and irritation. ENT: Denies rhinorrhea, congestion, sore throat, or otalgia. CARDIOVASCULAR: Denies chest pain, palpitations, or edema. RESPIRATORY: Denies cough or dyspnea. GASTROINTESTINAL: Denies abdominal pain, nausea, vomiting, or diarrhea. GENITOURINARY: Denies dysuria or hematuria. SKIN: Denies rash or itching. MUSCULOSKELETAL: Denies back pain, joint pain, or myalgia. NEUROLOGIC: Denies headache, numbness, or weakness. PSYCHIATRIC: Denies anxiety or depression. All other systems reviewed are negative, except as documented in HPI. [facility] Past Medical History Medical History Schatzki's ring H. pylori infection Bloating Dysphagia Migraines Surgical History Surgical History History of tonsillectomy History of tubal ligation Family History Family History Father Cerebrovascular accident Sibling Cerebrovascular accident Social History Social History Alcohol intake: never Substance use: never Substance use type: does not use Do You Feel Safe in your Home?: Yes Lack of Transportation: No Lack of Food: Never True Current Housing: I Have Housing Concerned About Future Housing: No Difficulty Paying Gas/Electric Bills: No Difficulty Paying for Meds: No Currently Unemployed: No Education: High School Diploma/GED Living arrangements: with family Occupation/Education: occupation 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 There is no relevant family history pertinent to the patient complaint. Exam Narrative: GENERAL: This is a well-nourished, well-developed adult, in no apparent distress. They are non ill-appearing, nontoxic appearing. HEAD: normocephalic, atraumatic. EYES: Sclera clear/white. Conjunctiva normal. Vision is grossly intact. Extraocular movements intact. Pupils PERRLA. No drainage. Upper eyelids are normal. Bilateral lower eyelids are erythematous, red pruritic, and scaly appearing. No exudate. No tenderness to palpation. No retained foreign body. No Stye formation. EARS: External ears normal, Hearing grossly intact. NOSE: External nose normal THROAT: Mucous membranes moist, NECK: Neck supple, CARDIOVASCULAR: Regular rate and rhythm RESPIRATORY: Respiratory rate normal, respiratory effort nonlabored, no respiratory distress SKIN: warm, Dry, intact with no suspicious lesions or rash, good texture and turgor. NEURO: awake, alert, and oriented to person, place and time. There were no obvious focal neurologic abnormalities. EXTREMITIES: No joint tenderness, effusion, or edema noted. Course Course Emergency Course: Portions of this record may have been created with voice recognition software Level of Care: Express Care Visit Vital Signs Vital signs: Vital Signs Temperature 98.3 F 03/02/25 16:27 Pulse Rate 81 03/02/25 16:27 Respiratory Rate 16 03/02/25 16:27 Blood Pressure 123/61 03/02/25 16:27 Pulse Oximetry 99 03/02/25 16:27 Oxygen Delivery Room Air 03/02/25 16:27 Temperature 98.3 F 03/02/25 16:27 Pulse Rate 81 03/02/25 16:27 Respiratory Rate 16 03/02/25 16:27 Blood Pressure 123/61 03/02/25 16:27 Pulse Oximetry 99 03/02/25 16:27 Oxygen Delivery Room Air 03/02/25 16:27 Reviewed MDM - Eye Problem MDM Narrative Medical decision making narrative: Appears patient likely has blepharitis and lower eyelid dermatitis. Discussed supportive care with patient. Evidence of infection or conjunctivitis. Discussed physical exam findings. Advised supportive measures and signs/symptoms to go to the ER. Pt is appropriate for outpt treatment and f/u. Differential Diagnosis Differential diagnosis: Likely conjunctivitis and other (Blepharitis, dry eyes, ) Critical Care Time Critical Care Time Critical Care Time: No Discharge Plan Discharge Clinical Impression: Blepharitis Qualifiers: Blepharitis type: unspecified type Laterality: bilateral Eyelid: lower Qualified Code(s): H01.002 - Unspecified blepharitis right lower eyelid Patient Disposition: Home Condition: Stable Instructions: Blepharitis (ED) Additional Instructions: May apply fragments free emmollients such as petrolatum or Aquaphor to the eyelids help with dryness and irritation. May apply to the affected area 2 to 3 times a day. Blepharitis is the inflammation of the eyelids. This condition is normally self-limiting and will get better but may also return. Please performed warm compresses to your eyelids for at least 5 minutes 2 to 4 times a day. After apply warm compresses please gently massaged eyelids in a circular motion with a clean finger to help promote drainage. You may also wash her eyelids you may use ifbz-umi-yhnnyzy eyelid washing solution or a drop of baby shampoo and a clean wash cloth, or cotton swab. Gently clean any crusting off the eyelashes eyelid with this solution. Please do not scrub vigorously or scratch arises may cause more irritation or increase her risk of a corneal abrasion. There also qidb-hif-bibkpje eye lid scrubs and pads. Please follow-up with PCP or your eye doctor or in 3-5 days. If you developed any vision changes, eye pain, or any other concerns please go to the ER immediately. Patient Language: Japanese Prescriptions: No Action azelastine 0.05 % drops 1 drp EACH EYE BID dorzolamide-timolol 22.3-6.8 mg/mL drops 1 drp RIGHT EYE Q12H estradiol 1 mg tablet 2 mg PO DAILY Rx Instructions: off 1 week; repeat cycle progesterone micronized 200 mg capsule 200 mg PO HS testosterone [AndroGel] 1 % (50 mg/5 gram) gel in packet 1 packet transdermal DAILY Follow-up/Referrals: Butch,Savanna Arzola NP [Primary Care Provider, Unknown] Time of Disposition: 16:44
== END 2025-03-02 16:47 | disposition home or self-care (01) ==
PROVIDERS: PCP Nurse Practitioner Family
DX: H01.005 Unspecified blepharitis left lower eyelid (principal); H01.002 Unspecified blepharitis right lower eyelid
CPT/HCPCS: 99212; G0463

== ENCOUNTER 2025-04-24 08:22 | Emergency (ER) | payer MEDICARE, MEDICAID, SELFPAY ==
--- NOTE | 2025-04-24 08:23 | ED.URI ---
HPI - URI/Sore Throat General Chief Complaint: Upper Respiratory Infection Stated Complaint: Sinus Time Seen by Provider: 04/24/25 08:23 Source: patient Mode of arrival: ambulatory Limitations: no limitations History of Present Illness HPI Narrative: Carmen is a 59-year-old female patient presenting to the clinic today with complaints of nasal congestion, body aches, headache, sneezing, and coughing x2 days. She reports no known fevers. Denies any chest pain or shortness of breath. She has been taking Tylenol and Sudafed for her symptoms. Related Data Home Medications ?Medication ?Instructions ?Recorded ?Confirmed ?Last Taken ?Type estradiol 1 mg tablet 2 mg PO DAILY 11/08/24 01/10/25 11/28/24 History azelastine 0.05 % eye drops 1 drp EACH EYE BID 11/16/24 01/10/25 11/29/24 History dorzolamide 22.3 mg-timolol 6.8 1 drp RIGHT EYE Q12H 11/16/24 01/10/25 11/29/24 History mg/mL eye drops progesterone micronized 200 mg 200 mg PO HS 11/16/24 01/10/25 11/28/24 History capsule testosterone 1 % (50 mg/5 gram) 1 packet transdermal DAILY 11/16/24 01/10/25 11/28/24 History transdermal gel packet (AndroGel) Allergies Allergy/AdvReac Type Severity Reaction Status Date / Time Sulfa (Sulfonamide Allergy Severe RASH Verified 04/24/25 08:57 Antibiotics) meperidine AdvReac Severe LOW BP Verified 04/24/25 08:57 RAGWEED Allergy Mild ITCHY, Uncoded 01/10/25 09:25 SNEEZY, CONGESTED Review of Systems Review of Systems: Pertinent positives per HPI. Patient denies any fever, chills, rash, visual changes, dizziness, shortness of breath, chest pain, palpitations, nausea, vomiting, diarrhea, constipation, abdominal pain, or any urinary issues. FOR[facility]LY [facility] Past Medical History Medical History Schatzki's ring H. pylori infection Bloating Dysphagia Migraines Surgical History Surgical History History of tonsillectomy History of tubal ligation Family History Family History Father Cerebrovascular accident Sibling Cerebrovascular accident Social History Social History Smoking status: Never smoker Alcohol intake: never Substance use: never Substance use type: does not use Lack of Transportation: No Lack of Food: Never True Current Housing: I Have Housing Concerned About Future Housing: No Difficulty Paying Gas/Electric Bills: No Difficulty Paying for Meds: No Currently Unemployed: No Education: High School Diploma/GED Living arrangements: with family Occupation/Education: occupation 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 There is no relevant family history pertinent to the patient complaint. Exam Narrative: General: Well-developed, well nourished, in no apparent distress Head: Normocephalic, atraumatic Eyes: Pupils equally round and reactive to light bilaterally, EOM intact, sclera and conjunctive clear, no discharge, lids normal Ears: TMs intact and clear, ear canals clear, no drainage, grossly hearing normal. Nose: Nares patent, clear nasal discharge, mild inflammation, no sinus tenderness. Mouth: Oral pharynx red without lesions or masses, good dentition, MMM. Postnasal drip Neck: Supple, trachea midline, no enlargement of anterior or posterior cervical nodes, no thyroid masses or goiter palpable. Cardio: Regular rate and rhythm, s1 and s2 normal, no murmur appreciated. Resp: Clear to auscultation bilaterally, no rhonchi, rales, wheezing or rubs Course Course Level of Care: Express Care Visit Vital Signs Vital signs: Vital Signs Pulse Rate 86 04/24/25 08:35 Respiratory Rate 20 04/24/25 08:35 Blood Pressure 134/57 L 04/24/25 08:35 Pulse Oximetry 98 04/24/25 08:35 Oxygen Delivery Room Air 04/24/25 08:35 Pulse Rate 86 04/24/25 08:35 Respiratory Rate 20 04/24/25 08:35 Blood Pressure 134/57 L 04/24/25 08:35 Pulse Oximetry 98 04/24/25 08:35 Oxygen Delivery Room Air 04/24/25 08:35 MDM MDM Narrative Medical decision making narrative: At the time of visit patient is resting comfortably on the exam table. Patient appears to be nontoxic. Complaints of nasal congestion, body aches, headache, sneezing, and coughing x2 days. She reports no known fevers. Denies any chest pain or shortness of breath. She has been taking Tylenol and Sudafed for her symptoms. On exam patient has bilateral TMs intact and clear, clear nasal drainage, mild anterior turbinate inflammation, oral pharynx red with postnasal drip, lung sounds are clear, heart rates regular rate and rhythm. COVID and influenza testing was ordered. Labs: COVID and influenza testing was performed. COVID testing was positive. Influenza testing was negative. Plan: Patient has COVID. Work note was given. Patient reports she feels better today than the last 2 days. Supportive measures were discussed with the patient and they voiced understanding discharge instructions and agrees to treatment plan. Return precautions reviewed Differential Diagnosis Differential Diagnosis: Differential diagnostic considerations for upper respiratory infection include upper respiratory infection, croup, otitis media, sinusitis, viral infection, bronchitis, influenza, pharyngitis, strep, uvulitis. Lab Data Labs: Lab Results 04/24/25 Range/Units 08:25 POC Influenza A Ag Negative (Negative) POC Influenza B Ag Negative (Negative) POC SARS CoV-2 Ag Positive (Negative) Discharge Plan Discharge Clinical Impression: COVID-19 Patient Disposition: Home Condition: Stable Instructions: Antibiotic Form, How to Recover from COVID-19 at Home (ED) Additional Instructions: COVID testing was positive in the clinic today. Influenza testing was negative. May take DayQuil/NyQuil for cold/flu symptoms. Increase fluids and stay well hydrated May take Tylenol or motrin as directed on bottle for pain/fever May use Flonase 1 spray in each nare daily May take OTC antihistamines such as Zyrtec or Claritin daily as directed on bottle May apply Vicks vapor rub to chest to open sinuses Sinus rinses for congestion Cepacol spray, cough drops, throat lozenges, warm tea with honey/lemon, gargle salt water to soothe throat BRAT diet for diarrhea Clear liquids x 24 hours then advance as tolerated for nausea/vomiting Go to the ED if you develop a worsening in your condition- high fever not controlled by Tylenol or Motrin, dehydration, weakness, lethargy, shortness of breath, or chest pain. Follow up with your PCP in 3-5 days if symptoms persist. Patient Language: Maori Prescriptions: No Action azelastine 0.05 % drops 1 drp EACH EYE BID dorzolamide-timolol 22.3-6.8 mg/mL drops 1 drp RIGHT EYE Q12H estradiol 1 mg tablet 2 mg PO DAILY Rx Instructions: off 1 week; repeat cycle progesterone micronized 200 mg capsule 200 mg PO HS testosterone [AndroGel] 1 % (50 mg/5 gram) gel in packet 1 packet transdermal DAILY Follow-up/Referrals: Butch,Savanna Arzola, [employer]PERATOR [Primary Care Provider, Unknown] Stand Alone Forms: Work/School Release IP Time of Disposition: 09:00 Quality NIHSS Nursing Documentation ED NIHSS nursing documentation: reviewed/agree
[2025-04-24 08:25] VITALS: BP 134/57; PULSE 86; RESP 18; TEMP 36.2; O2SAT 98
[2025-04-24 08:35] VITALS: BP 134/57; PULSE 86; RESP 20; O2SAT 98
[2025-04-24 09:01] LABS: EDCOVIDSCREEN Positive (Negative); EDINFLUASCREEN Negative (Negative); EDINFLUBSCREEN Negative (Negative)
== END 2025-04-24 09:05 | disposition home or self-care (01) ==
PROVIDERS: Emergency Provider Nurse Practitioner Family; PCP Nurse Practitioner Family
DX: U07.1 COVID-19 (principal)
CPT/HCPCS: 87426; 87804; 99212; G0463